=== PATIENT | male | born 1985 | race African-American/Black ===

== ENCOUNTER 2018-12-19 07:16 | Day surgery (SDC) | payer MEDICARE ==
[~2018-12-19] VITALS: Ht 188 cm; Wt 152.7 kg
--- NOTE | ~2018-12-19 | OP ---
PATIENT NAME: OLAMIDE SOTO MEDICAL RECORD: [id number] :87 LOCATION:[facility] ADMISSION DATE: SURGEON: MICHELLE ARZATE DO DATE OF OPERATION: 12/19/2018 PROCEDURE: Colonoscopy with polypectomy and biopsies. INDICATIONS FOR PROCEDURE: Altered bowel function, change in bowel habits, fecal incontinence, family history positive for colon cancer. SCOPE: Olympus video pediatric colonoscope. MEDICATIONS: Propofol 450 mg IV per anesthesia. WITHDRAWAL TIME: 8 minutes. ESTIMATED BLOOD LOSS: Minimal. COMPLICATIONS: None. FINDINGS: Informed consent was given. The patient was made comfortable with the above medication. After reaching an adequate level of sedation by slow IV push, the patient was placed on his left side. A digital rectal examination was performed. On the digital examination, a mass could be palpated in the rectum. It was anterior and on the left side in the 0-4 o'clock position. The endoscope was advanced under direct visualization through the rectum to the cecum, confirmed by the presence of the appendiceal orifice and ileocecal valve. The endoscope was slowly withdrawn. The mucosa was carefully examined. The prep quality was good in the majority of the colon, but there was still some solid stool located in the cecum and ascending colon, which limited some visualization. There was one polyp located in the transverse colon, which was benign-appearing and sessile. It measured approximately 4-mm in diameter. It was removed using a hot forceps. There were no other finding until we reached the rectum where the palpated rectal mass was present. It was approximately 5 cm into the rectum from the anal verge that measured approximately 6 x 3 cm in size. It occupied 60% of the circumference of the wall of the colon and was nonobstructing. Multiple cold forceps biopsies were taken from this mass. Retroflexion was performed and again revealed the visible rectal mass in relation to the anal verge. The endoscope was then withdrawn from the patient. The patient tolerated the procedure well and there were no complications. IMPRESSION: 1. Transverse polyp. 2. Rectal mass, multiple biopsies taken. PLAN AND RECOMMENDATIONS: 1. Discharge home when recovery parameters are met. 2. Follow up biopsy specimen results. 3. Referrals will be made to oncology and general surgery. 4. As this is likely the main cause of the patient's symptoms, I will not change any medications or other therapy at this time. 5. We will follow up after management of the colon mass and anticipate repeating a colonoscopy approximately 6 months after surgery. TRANSINT:[id number] Voice Confirmation ID: [id number] DOCUMENT ID: [id number] OPERATIVE REPORT [id number] OLAMIDE SOTO NATHAN A DO CC: [id number] DICTATION DATE: 12/19/18 1021 MARKETING TEACHER: 12/19/[address] [facility] [place] 12/19/18 [place] [id number] [place] [id number]
[2018-12-19 08:20] VITALS: BP 135/84; Ht 188 cm; Wt 152.7 kg
[2018-12-19 09:41] LABS: HEMATOCRIT 38.8 % (42.0-54.0); HEMOGLOBIN 12.6 g/dL (13.5-17.5); MCH 28.4 pg (26.0-34.0); MCHC 32.5 g/dL (31.0-37.0); MCV 87.4 fL (80.0-100.0); MEAN PLATELET VOLUME 10.5 fL (7.4-10.4); RBC 4.44 10x6/uL (4.20-6.10); RDW 14.1 % (11.5-14.5); WBC 7.3 10x3/uL (4.8-10.8)
--- NOTE | 2018-12-19 11:26 | NUR ---
AWAKE AND ALERT WITHOUT COMPLAINTS. TOLERATING FULL LIQUIDS. IV D/C'D WITH CANNULA INTACT. VSS. DISCHARGE INSTRUCTIONS GIVEN TO MOTHER. SHE VERBALIZED AN UNDERSTANDING.
== END 2018-12-19 11:25 | disposition home or self-care (01) ==
LOC: D.OPS 07:16
PROVIDERS: Anesthesiology; ATTEND Internal Medicine Gastroenterology
DX: K63.5 Polyp of colon (principal); C20 Malignant neoplasm of rectum; Z80.0 Family history of malignant neoplasm of digestive organs; Z01.812 Encounter for preprocedural laboratory examination

== ENCOUNTER 2018-12-28 06:53 | Day surgery (SDC) | payer MEDICARE ==
[~2018-12-28] VITALS: Ht 193 cm; Wt 151.8 kg
--- NOTE | ~2018-12-28 | OP ---
PATIENT NAME: OLAMIDE SOTO MEDICAL RECORD: [id number] :87 LOCATION:[facility] ADMISSION DATE: SURGEON: EDSON JO MD DATE OF OPERATION: 12/28/2018 PREOPERATIVE DIAGNOSES: 1. Rectal cancer. 2. Morbid obesity with a BMI of 41. 3. Hypertension. 4. Mental retardation with developmental delay. POSTOPERATIVE DIAGNOSES: 1. Rectal cancer. 2. Morbid obesity with a BMI of 41. 3. Hypertension. 4. Mental retardation with developmental delay. PROCEDURE: 1. Left subclavian vein port placement. 2. Digital rectal exam. SURGEON: Edson Jo MD REPORT OF PROCEDURE: The patient's left chest was prepped and draped in sterile fashion. A needle was used to cannulate the left internal jugular vein and a guidewire was advanced with ease. Fluoro was used to note that the wire was in good position in the venous system. A skin incision was then made on the left superior lateral chest and a subcutaneous pouch was made over the pectoral fascia. The catheter was tunneled between this pouch and the wire exit site. The port was sutured to the pectoral fascia using interrupted 2-0 Prolenes times 2. The catheter was cut with a beveled tip at 29 cm. The dilator trocar device was placed over the wire and the wire and dilator were removed. The catheter tip was advanced through the trocar and the trocar was then removed. The catheter tip was noted under fluoroscopy to be resting in good position at the right atrial superior vena caval junction. The catheter aspirated nonpulsatile dark blood and flushed easily with heparinized saline. The subcutaneous tissues were reapproximated with interrupted 3-0 Vicryl and the skin was then closed with subcutaneous running 5-0 Monocryl. A 10 mL of 0.25% Marcaine with epinephrine was infused into the surrounding tissues and a dressing was applied. The patient was then turned over on to his right side. A digital rectal exam was performed. I was able to measure out how far the tumor was from the anal verge and it appeared to be 3-4 cm. The mass was fixed and encompassing more than 50% of the wound and appeared to be ulcerated. COMPLICATIONS: None. CONDITION: Stable. ANESTHESIA: General endotracheal. BLOOD LOSS: Minimal. TRANSINT:[id number] Voice Confirmation ID: [id number] DOCUMENT ID: [id number] OPERATIVE REPORT [id number] OLAMIDE SOTO CHRISTIAN MD CC: RADHA DINH MD and MICHELLE ARZATE DO [id number] DICTATION DATE: 12/28/18 1107 KITCHEN LEAD: 12/28/18 1149 [facility] [address] [place] [address]
[2018-12-28 07:22] LABS: BASOPHILS 0.3 % (0-2); EOSINOPHILS 1.3 % (0-7); HEMATOCRIT 38.5 % (42.0-54.0); HEMOGLOBIN 12.3 g/dL (13.5-17.5); IMMATURE GRANULOCYTES 0.1 % (0-5); LYMPHOCYTES 26.1 % (15-50); MCH 28.2 pg (26.0-34.0); MCHC 31.9 g/dL (31.0-37.0); MCV 88.3 fL (80.0-100.0); MONOCYTES 10.3 % (2-11); NEUTROPHILS 61.9 % (40-80); PLATELET COUNT 278 10x3/uL (130-400); RBC 4.36 10x6/uL (4.20-6.10)
[2018-12-28 07:26] LABS: CALC OSMOLALITY 278 mosm/kg (275-300); CALCIUM 8.7 mg/dL (8.5-10.1); CARBON DIOXIDE 30.5 mmol/L (21.0-32.0); CHLORIDE - SERUM 104 mmol/L (98-107); CREATININE - SERUM 0.9 mg/dL (0.6-1.3); GLUCOSE 107 mg/dL (74-106); POTASSIUM - SERUM 3.5 mmol/L (3.5-5.1); SODIUM 141 mmol/L (136-145); UREA NITROGEN 7 mg/dL (7-18); eGFR NON AFRICAN AMERICAN > 90 mL/min (90-120)
[2018-12-28 07:58] LABS: INR 1.08 (0.85-1.17); PROTIME 13.5 SECONDS (11.6-15.0)
[2018-12-28 07:59] LABS: APTT 30.3 SECONDS (22.8-39.4)
[2018-12-28 08:10] VITALS: BP 121/73; Ht 193 cm; Wt 151.8 kg
[2018-12-28] MEDS ORDERED: HYDROCODON-ACE1 EA10 PO (11:01)
--- NOTE | 2018-12-28 11:23 | NUR ---
PT IS AUTISTIC PER ANESTHESIA
--- NOTE | 2018-12-28 15:40 | NUR ---
1300 PT IS GRIMACING AND MOTHER REQUESTS PAIN MED. RXD WITH HYDROCODONE.
== END 2018-12-28 13:30 | disposition home or self-care (01) ==
LOC: D.OPS 06:53 → D.PAN 09:15 → D.OPS 09:15
PROVIDERS: Anesthesiology; ATTEND Surgery
DX: C20 Malignant neoplasm of rectum (principal); E66.01 Morbid (severe) obesity due to excess calories; Z68.41 Body mass index [BMI] 40.0-44.9, adult; I10 Essential (primary) hypertension; F78 Other intellectual disabilities; Z01.812 Encounter for preprocedural laboratory examination

== ENCOUNTER 2019-03-30 18:42 | Emergency (ER) | payer MEDICARE, MEDICAID ==
[~2019-03-30] VITALS: Ht 193 cm; Wt 142.7 kg
[~2019-03-30 18:42] MED LIST: HYDROCODON-ACE1 EA10 PO
[2019-03-30 18:52] VITALS: Ht 193 cm; Wt 142.7 kg
[2019-03-30 19:34] LABS: BASOPHILS 0.1 % (0-2); EOSINOPHILS 0.6 % (0-7); HEMATOCRIT 33.5 % (42.0-54.0); IMMATURE GRANULOCYTES 0.3 % (0-5); LYMPHOCYTES 5.5 % (15-50); MCH 27.4 pg (26.0-34.0); MCHC 32.8 g/dL (31.0-37.0); MCV 83.5 fL (80.0-100.0); MEAN PLATELET VOLUME 9.2 fL (7.4-10.4); MONOCYTES 13.9 % (2-11); NEUTROPHILS 79.6 % (40-80); PLATELET COUNT 187 10x3/uL (130-400); RBC 4.01 10x6/uL (4.20-6.10); RDW 15.1 % (11.5-14.5); WBC 6.8 10x3/uL (4.8-10.8)
[2019-03-30 19:58] LABS: ALBUMIN 3.4 g/dL (3.4-5.0); ALKALINE PHOSPHATASE 84 U/L (46-116); ALT (SGPT) 28 U/L (10-68); BILIRUBIN - TOTAL 0.37 mg/dL (0.2-1.3); CALC OSMOLALITY 278 mosm/kg (275-300); CALCIUM 8.5 mg/dL (8.5-10.1); CARBON DIOXIDE 28.6 mmol/L (21.0-32.0); CHLORIDE - SERUM 104 mmol/L (98-107); CREATININE - SERUM 0.9 mg/dL (0.6-1.3); GLUCOSE 96 mg/dL (74-106); POTASSIUM - SERUM 3.1 mmol/L (3.5-5.1); PROTEIN - SERUM 7.3 g/dL (6.4-8.2); SODIUM 140 mmol/L (136-145); UREA NITROGEN 13 mg/dL (7-18); eGFR NON AFRICAN AMERICAN > 90 mL/min (90-120)
[2019-03-30] MEDS ORDERED: K-DUR20 MEQ PO (20:13)
[2019-03-30] MEDS ORDERED: LOMOTIL 2.5-0.1 EAC1 PO (20:13)
[2019-03-30] MEDS ORDERED: FLAGYL500 MG PO (20:13)
[2019-03-30 20:30] VITALS: BP 132/74
== END 2019-03-30 20:30 | disposition home or self-care (01) ==
LOC: D.ER 18:42
PROVIDERS: Emergency Medicine
DX: R19.7 Diarrhea, unspecified (principal); C20 Malignant neoplasm of rectum; E87.6 Hypokalemia

== ENCOUNTER → 2019-05-15 09:14 | Outpatient (CLI) | payer MEDICARE, MEDICAID ==
[2019-03-30 18:52] VITALS: BMI 38.3
[~2019-05-15 09:14] MED LIST changes: +FLAGYL500 MG PO; +K-DUR20 MEQ PO; +LOMOTIL 2.5-0.1 EAC1 PO; +MIRALAX17 GM PO; +PROTONIX40 MG PO
== END | disposition home or self-care (01) ==
LOC: D.CT 09:14
PROVIDERS: ATTEND Internal Medicine Hematology & Oncology
DX: C20 Malignant neoplasm of rectum (principal)

== ENCOUNTER 2019-06-17 09:37 | Inpatient (IN) | payer MEDICARE, MEDICAID ==
[~2019-06-17] VITALS: Ht 185.4 cm; Wt 144.3 kg
[~2019-06-17 09:37] MED LIST changes: -MIRALAX17 GM PO; -PROTONIX40 MG PO
[2019-06-18 05:36] LABS: BASOPHILS 0.2 % (0-2); EOSINOPHILS 1.2 % (0-7); HEMATOCRIT 33.9 % (42.0-54.0); HEMOGLOBIN 11.3 g/dL (13.5-17.5); LYMPHOCYTES 10.7 % (15-50); MCH 29.2 pg (26.0-34.0); MCHC 33.3 g/dL (31.0-37.0); MCV 87.6 fL (80.0-100.0); MONOCYTES 10.7 % (2-11); NEUTROPHILS 77.2 % (40-80); PLATELET COUNT 162 10x3/uL (130-400); RBC 3.87 10x6/uL (4.20-6.10); RDW 17.3 % (11.5-14.5); WBC 4.9 10x3/uL (4.8-10.8)
[2019-06-18 06:21] LABS: CALC OSMOLALITY 285 mosm/kg (275-300); CALCIUM 8.5 mg/dL (8.5-10.1); CARBON DIOXIDE 29.7 mmol/L (21.0-32.0); CHLORIDE - SERUM 108 mmol/L (98-107); CREATININE - SERUM 0.8 mg/dL (0.6-1.3); GLUCOSE 102 mg/dL (74-106); POTASSIUM - SERUM 3.3 mmol/L (3.5-5.1); SODIUM 144 mmol/L (136-145); UREA NITROGEN 9 mg/dL (7-18); eGFR NON AFRICAN AMERICAN > 90 mL/min (90-120)
[2019-06-18 06:39] LABS: APTT 30.4 SECONDS (22.8-39.4); PROTIME 12.7 SECONDS (11.6-15.0)
[2019-06-18 06:54] VITALS: BP 115/74; BMI 42.1
--- NOTE | 2019-06-18 10:51 | NUR ---
BOOKWALTER ON FIELD BUT NOT USED. ONE EXTRA INSTUMENT IN THE TRAY THEN ORIGINAL COUNT. POST OP X-RAY TAKEN AND REPORTED TO
--- NOTE | 2019-06-18 12:05 | NUR ---
POST OP KUB DONE WITH NO FOREIGN OBJECTS SEEN PER RADIOLOGY. REPORTED TO DR. DEYSI CASTELAN RN
--- NOTE | 2019-06-18 12:45 | NUR ---
EMPTIED A TOTAL OF 170CC OF BLOODY DRAINAGE FROM RLQ JANAK DRAIN. NEW DRSG APPLIED AND SECURED TO SKIN. WILL TRANSPORT PT TO NEW ROOM AT THIS TIME.
[2019-06-18 12:53] VITALS: BP 124/86
--- NOTE | 2019-06-18 13:00 | NUR ---
RECEIVED PT FROM RECOVERY. NEW COLOSTOMY. AVELAR. PT IS AUTISTIC. FAMILY AT BEDSIDE. JANAK DRAIN TO RLQ. MIDLINE INCISION WITH ADAN. SEWN ANUS WITH STITCHES.
--- NOTE | 2019-06-18 15:20 | NUR ---
PT GOT UP OUT OF BED, PULLED AVELAR OUT. THIS NURSE ASSISTED PT BACK TO BED. CLEANED PATIENT UP, BLOOD ON BED AND FLOOR. CALLED DR. JO, PHYSICIAN STATED TO PLACE ANOTHER AVELAR CATHETER IN. MONY MONTELONGO RN ASSISTED WITH AVELAR PLACEMENT.
--- NOTE | 2019-06-18 19:30 | NUR ---
PT LYING IN BED RESTING, NO SIGNS OF DISTRESS. DENIES ANY PAIN. IV RIGHT HAND INFUSING NS @ 125. DRESSING TO RECTUM AND ABD CDI. EMPTIED 110ML BLOOD DRAINAGE FROM JANAK DRAIN. ELVIS ON. FALL PRECAUTIONS IN PLACE. COLOSTOMY LLQ. OFFERED ICE CHIPS, REFUSED. STATES NO NEEDS. AVELAR IN PLACE WITH BRITT URINE. CL IN REACH, WILL CTM
[2019-06-18 19:44] VITALS: BMI 42.1
[2019-06-18 20:45] VITALS: BP 98/54
--- NOTE | 2019-06-18 21:00 | NUR ---
PT LYING IN BED RESTING, DENIES PAIN OR NEEDS. ELVIS ON. CL IN REACH, WILL CTM
--- NOTE | 2019-06-18 23:30 | NUR ---
PT LYING IN BED WITHOUT DISTRESS, DENIES PAIN OR NEEDS. DRESSING TO ABD CDI. DRAINED 75ML FROM JANAK DRAIN. ELVIS ON. CL IN REACH, WILL CTM
--- NOTE | 2019-06-18 23:45 | NUR ---
ELVIS ALARM SOUNDING, THIS NURSE ENTERED PT ROOM IMMEDIATELY. PT STANDING UP BETWEEN BATHROOM AND BED WITH AVELAR OUT AND IN FLOOR. PT OPENED BATHROOM DOOR. THIS NURSE TOLD PT TO SIT BACK DOWN WHILE TRYING TO MOVE AROUND BEDSIDE TABLE AND BATHROOM DOOR. PT PULLING AT IV LINE, MOVED IV POLE CLOSER TO PT. PT STANDING IN BATHROOM IN FRONT OF TOILET, THIS NURSE PLACED HANDS ON PT RIGHT ARM AND BACK FOR SUPPORT. PT BEGAN TO SWAY THIS NURSE WENT TO CALL OVER RADIO FOR HELP. PT FELL FORWARD HITTING HEAD ON BACK OF TOILET AND INTO THE FLOOR BETWEEN TOILET AND WALL TAKING THIS NURSE TO FLOOR WITH HIM. ASSISTED PT INTO SITTING UP ON KNEES. JUSTO OLIVA AND CYNDIE VÁSQUEZ ASSISTED THIS NURSE WALKING PT BACK TO BED. CYNDIE VÁSQUEZ GAVE PT BED BATH AND CHANGED GOWN. THIS NURSE PAGED DR LAW. DID NOT RECEIVE CALL BACK, CALLED [facility] CELL PHONE, STRAIGHT TO VOICEMAIL, UNABLE TO LEAVE ONE D/T BOX BEING FULL. PAGED AND CALLED DR LAW SECOND TIME. CALLED HOSPICE DIRECTOR WHO ADVISED TO CALL DR JO. SPOKE WITH DR JO AT 7530. DR JO STATES MONITOR PT AND HE WILL SEE HIM IN AM. CALLED PT MOTHER SLOANE SOTO AND NOTIFIED OF FALL. STATES SHE WILL BE UP IN AM TO SEE PT. CHECKED ON PT WHO STATES NO PAIN, NO PHYSICAL INJURIES SEEN, NO COMPLAINTS. FALL PRECAUTIONS IN PLACE. ELVIS ON. CL IN REACH, WILL CTM
[2019-06-19] VITALS (22 sets, daily range): BP systolic 108–163; BP diastolic 47–105; Ht 185.4 cm; Wt 144.3 kg
--- NOTE | 2019-06-19 03:37 | NUR ---
UPON ENTERING ROOM TO CHECK JANAK DRAIN, PT HAD PULLED DRAIN OUT AND PLACED IT ON BEDSIDE TABLE AND PULLED DRESSING OFF INCISION. PLACED NEW DRESSING OVER MIDLINE INCISION AND DRESSING OVER SITE WHERE JANAK DRAIN WAS PLACED
--- NOTE | 2019-06-19 03:52 | NUR ---
RECIEVED CALL BACK FROM DR LAW, UPDATED ON PT STATUS. DR LAW ORDERED TO TRANSFER PT OVER TO ICU TO BE MONITORED MORE CLOSELY. ELECTRICAL AND INSTRUMENTATION MECHANIC NOTIFIED
--- NOTE | 2019-06-19 04:35 | NUR ---
COMPUTER INFORMATION SYSTEMS INSTRUCTOR CALLED WITH ROOM 2307. CALLED PT MOTHER AND UPDATED HER ON PT STATUS AND INFORMED HER OF PT ROOM NUMBER. VERBALIZED UNDERSTANDING. CALLED REPORT TO JOSE OLIVA. VSS. TRANSFERED PT TO ROOM 230
--- NOTE | 2019-06-19 04:40 | NUR ---
REC'D TO ROOM 2307 VIA BED. PT TRANSFERRED SELF TO BED. ICU MONITORS ESTAB. PT COOPERATIVE. STUTTERS AND SLOW TO RESPOND, BUT ANSWERS APPROP/ORIENTED. REORIENTED TO TIME OF DAY AND ICU BY NURSE. VSS. NO SIGN OF DISTRESS. COLOSTOMY SITE INTACT PROTRUDING PINK STOMA NOTED. IV PATENT, DSG C/D/I. PT INSTRUCTED ON POC AND NOT PULLING AT LINES/TUBINGS. PT BED ALARM ON. CLOSE TO NURSE DESK. C/L IN REACH. ALARMS ON.
[2019-06-19 06:54] LABS: CALCIUM 8.3 mg/dL (8.5-10.1); CARBON DIOXIDE 27.2 mmol/L (21.0-32.0); CHLORIDE - SERUM 109 mmol/L (98-107); CREATININE - SERUM 0.9 mg/dL (0.6-1.3); GLUCOSE 124 mg/dL (74-106); SODIUM 143 mmol/L (136-145); eGFR NON AFRICAN AMERICAN > 90 mL/min (90-120)
[2019-06-19 06:55] LABS: CALC OSMOLALITY 285 mosm/kg (275-300); POTASSIUM - SERUM 3.9 mmol/L (3.5-5.1); UREA NITROGEN 13 mg/dL (7-18)
--- NOTE | 2019-06-19 07:00 | NUR ---
BEDSIDE REPORT RECIEVED. PT IN BED TALKING WITH NURSE. ASSESSMENT COMPLETED PER FLOWSHEET, SEE FLOWSHEET FOR ADDITIONAL INFORMATION. VSS. WILL CONT TO MONITOR.
[2019-06-19 08:03] LABS: BASOPHILS 0 % (0-2); EOSINOPHILS 0 % (0-7); IMMATURE GRANULOCYTES 0.1 % (0-5); LYMPHOCYTES 8.6 % (15-50); MCH 28.6 pg (26.0-34.0); MCHC 32.9 g/dL (31.0-37.0); MCV 87.1 fL (80.0-100.0); MEAN PLATELET VOLUME 9.5 fL (7.4-10.4); NEUTROPHILS 82.3 % (40-80); PLATELET COUNT 153 10x3/uL (130-400); RDW 17.6 % (11.5-14.5)
[2019-06-19 08:24] LABS: RBC 2.55 10x6/uL (4.20-6.10)
[2019-06-19 08:27] LABS: HEMATOCRIT 22.2 % (42.0-54.0)
[2019-06-19 08:30] LABS: HEMOGLOBIN 7.3 g/dL (13.5-17.5)
--- NOTE | 2019-06-19 09:00 | NUR ---
PT IN BED RESTING. VSS. NO NEEDS OR DISTRESS NOTED. WILL CONT TO MONITOR.
--- NOTE | 2019-06-19 10:18 | NUR ---
CHG BEDBATH GIVEN. ABDOMINAL DRESSING CHANGED. OSTOMY BAG CHANGED. PT TOLERATED WELL. FAMILY AT BEDSIDE. VSS. WILL CONT TO MONITOR.
--- NOTE | 2019-06-19 11:00 | NUR ---
CHG BEDBATH GIVEN. PARTIAL LINEN CHANGE COMPLETED. VSS. WILL CONT TO MONITOR.
[2019-06-19 14:34] LABS: HEMOGLOBIN 7.6 g/dL (13.5-17.5)
--- NOTE | 2019-06-19 17:00 | NUR ---
PT C/O DRY MOUTH AND LIPS. ORAL CARE GIVEN WITH LEMON SWABS AND LIP MOISTURIZER APPLIED. VSS. NO NEEDS OR DISTRESS NOTED AT THIS TIME. WILL CONT TO MONITOR.
--- NOTE | 2019-06-19 19:00 | NUR ---
PT REPORT RECEIVED FROM DAY SHIFT NURSE. NO SIGNS OF DISTRESS NOTED. SHIFT ASSESSMENT COMPLETED. WILL CONTINUE TO MONITOR
--- NOTE | 2019-06-19 19:37 | MORECARE ---
CASE MANAGEMENT DISCHARGE SUMMARY PATIENT: OLAMIDE SOTO UNIT: [id number] ADM DATE: 06/18/19 AGE: 33 : [birth year] SEX: M ROOM/BED: D.2307 AUTHOR: AGUSTIN PENA PHYSICIAN: REFERRING PHYSICIAN: LENNY JO MD DATE OF SERVICE: 06/19/19 Discharge Plan Patient Name: OLAMIDE SOTO [facility] [facility] 1985 Planned Disposition: Anticipated Discharge Date: Discharge Date: Expected LOS: Initial Reviewer: [email or web address] Initial Review Date: 06/18/2019 Generated: 06/19/19 8:37 pm Comments DCP- Discharge Planning Updated by [email or web address]: Libia Jackson on 06/19/19 6:[address] CM attempted to visit with patient he is unable to answer questions. No family available currently will try to reach via phone. CM will continue to follow and assist as needed with discharge planning / needs. Patient Name: OLAMIDE SOTO Page [id number] at 1937 All edits/amendments must be made on the electronic document DICTATION DATE: 06/19/191936 THERMODYNAMICS TEACHER: KEKE 06/19/191936 RPT#: [id number] DC DATE: STATUS: ADM IN [facility] [address] [place] [address] END OF REPORT
--- NOTE | 2019-06-19 21:00 | NUR ---
PT RESTING IN BED. VSS. NO COMPLAINTS NOTED AT THIS TIME. PT GIVEN LEMON SWABS FOR DRY MOUTH. OTHERWISE NO NEEDS. WILL CONTINUE TO MONITOR
--- NOTE | 2019-06-19 23:00 | NUR ---
PT REASSESSMENT COMPLETED. PT RESTING IN BED. VSS. WILL CONTINUE TO MONITOR
[2019-06-20] VITALS (25 sets, daily range): BP systolic 126–163; BP diastolic 74–101
--- NOTE | 2019-06-20 01:00 | NUR ---
PT RESTING IN BED. VSS. NO SIGNS OF DISTRESS NOTED. WILL CONTINUE TO MONITOR
--- NOTE | 2019-06-20 03:00 | NUR ---
PT REASSESSMENT COMPLETED. PT TOLERATED WELL. NO SIGNS OF DISTRESS NOTED. VSS. WILL CONTINUE TO MONITOR
[2019-06-20 04:38] LABS: BASOPHILS 0.2 % (0-2); EOSINOPHILS 0.2 % (0-7); IMMATURE GRANULOCYTES 0.2 % (0-5); LYMPHOCYTES 8.2 % (15-50); MCH 29.5 pg (26.0-34.0); MCHC 33.7 g/dL (31.0-37.0); MCV 87.5 fL (80.0-100.0); MEAN PLATELET VOLUME 9.5 fL (7.4-10.4); MONOCYTES 10.6 % (2-11); NEUTROPHILS 80.6 % (40-80); PLATELET COUNT 143 10x3/uL (130-400); RBC 2.24 10x6/uL (4.20-6.10); RDW 17.6 % (11.5-14.5); WBC 6.1 10x3/uL (4.8-10.8)
[2019-06-20 04:54] LABS: CALCIUM 7.8 mg/dL (8.5-10.1); CARBON DIOXIDE 26.4 mmol/L (21.0-32.0); CHLORIDE - SERUM 109 mmol/L (98-107); CREATININE - SERUM 0.7 mg/dL (0.6-1.3); GLUCOSE 98 mg/dL (74-106); SODIUM 144 mmol/L (136-145); eGFR NON AFRICAN AMERICAN > 90 mL/min (90-120)
--- NOTE | 2019-06-20 05:00 | NUR ---
PT RESTING IN BED. NO SIGNS OF DISTRESS NOTED. WILL CONTINUE TO MONITOR
[2019-06-20 05:06] LABS: CALC OSMOLALITY 285 mosm/kg (275-300); POTASSIUM - SERUM 3.3 mmol/L (3.5-5.1); UREA NITROGEN 9 mg/dL (7-18)
[2019-06-20 05:34] LABS: HEMATOCRIT 19.6 % (42.0-54.0); HEMOGLOBIN 6.6 g/dL (13.5-17.5)
--- NOTE | 2019-06-20 05:45 | NUR ---
DR JO CALLED REGARDING CRITICAL LAB VALUES. ORDERS RECEIVED. WILL CONTINUE TO MONITOR
--- NOTE | 2019-06-20 07:00 | NUR ---
BEDSIDE REPORT RECIEVED. ASSESSMENT COMPLETED PER FLOWSHEET, SEE FLOWSHEET FOR ADDITIONAL INFORMATION. VSS. NO NEEDS OR DISTRESS NOTED. WILL CONT TO MONITOR.
--- NOTE | 2019-06-20 09:00 | NUR ---
FAMILY AT BEDSIDE. PT C/O OF PAIN IN ABDOMEN, FOREST LOGISTICS MANAGER GIVEN. FOREST LOGISTICS MANAGER INSTRUCTIONS GIVEN TO PT AND FAMILY AT BEDSIDE. NO NEEDS OR DISTRESS NOTED AT THIS TIME. WILL CONT TO MONITOR.
--- NOTE | 2019-06-20 11:00 | NUR ---
PRBC INFUSING. VSS. WILL CONTINUE TO MONITOR.
--- NOTE | 2019-06-20 13:00 | NUR ---
2ND PRBC INFUSING, B/P 156/109. CALLED. NO NEW ORDERS. WILL CONT TO MONITOR.
--- NOTE | 2019-06-20 13:45 | NUR ---
B/P HAS LOWERED TO 136/95. WILL CONT TO MONITOR.
--- NOTE | 2019-06-20 15:00 | NUR ---
2ND PRBC COMPLETED AT THIS TIME. NO NEEDS OR DISTRESS NOTED AT THIS TIME. VSS. WILL CONT TO MONITOR.
--- NOTE | 2019-06-20 16:43 | NUR ---
3RD PRBC STARTED. VSS. WILL CONT TO MONITOR.
--- NOTE | 2019-06-20 17:00 | NUR ---
CHG BEDBATH GIVEN. COMPLETE LINEN CHANGE. PT TOLERATED WELL. VSS. NO NEEDS OR DISTRESS NOTED AT THIS TIME. WILL CONT TO MONITOR.
--- NOTE | 2019-06-20 19:00 | NUR ---
REPORT REC'D, ASSUMED PT'S CARE. ASSESSMENT COMPLETET PER FLOWSHEETS. PT A/O TO NAME, TIME AND PLACE. DENIES ANY DISCOMFORT AT THIS TIME. SR ON CM. LUNG SOUNDS CLEAR TO ULB WITH DIMINISHED TO LLB, UNLABORED. ABD INCISION WITH DRESSING C,D,I. COLOSTOMY BAG INTACT WITH SEROUSANGUINOUS DRAINGE. PPP. CALL LIGHT IN REACH. CONT TO MONITOR.
--- NOTE | 2019-06-20 20:30 | NUR ---
PT'S MOTHER CALLED, UPDATED AND QUESTIONS ANSWERED.
--- NOTE | 2019-06-20 21:00 | NUR ---
SCHEDULED MEDS GIVEN PER ORDER. PT SANTOS WELL. VSS.
--- NOTE | 2019-06-20 23:00 | NUR ---
REASSESSMENT COMPLETED PER FLOWSHEETS. NO ACUTE CHANGES IN PTS STATUS NOTED. VSS.CPOC.
[2019-06-21] VITALS (14 sets, daily range): BP systolic 121–150; BP diastolic 67–99
--- NOTE | 2019-06-21 01:00 | NUR ---
PT RESTING WITHOUT DISTRESS. VSS. NO NEEDS VOICES. CALL LIGHT IN REACH.
--- NOTE | 2019-06-21 03:00 | NUR ---
REASSESSMENT COMPLETED. SEE FLOWSHEETS FOR ALL FINDINGS. NO ACUTE CHANGES NOTED. VSS. CPOC
[2019-06-21 04:13] LABS: BASOPHILS 0.3 % (0-2); EOSINOPHILS 0.9 % (0-7); IMMATURE GRANULOCYTES 0.2 % (0-5); LYMPHOCYTES 6.8 % (15-50); MCH 29.9 pg (26.0-34.0); MCHC 33.3 g/dL (31.0-37.0); MEAN PLATELET VOLUME 9.5 fL (7.4-10.4); MONOCYTES 7.5 % (2-11); NEUTROPHILS 84.3 % (40-80); PLATELET COUNT 159 10x3/uL (130-400); RDW 16.1 % (11.5-14.5); WBC 6.6 10x3/uL (4.8-10.8)
[2019-06-21 04:26] LABS: CALC OSMOLALITY 281 mosm/kg (275-300); CALCIUM 8.1 mg/dL (8.5-10.1); CARBON DIOXIDE 24.7 mmol/L (21.0-32.0); CHLORIDE - SERUM 107 mmol/L (98-107); CREATININE - SERUM 0.6 mg/dL (0.6-1.3); GLUCOSE 96 mg/dL (74-106); POTASSIUM - SERUM 3.3 mmol/L (3.5-5.1); SODIUM 142 mmol/L (136-145); UREA NITROGEN 9 mg/dL (7-18); eGFR NON AFRICAN AMERICAN > 90 mL/min (90-120)
[2019-06-21 04:50] LABS: HEMATOCRIT 26.4 % (42.0-54.0); HEMOGLOBIN 8.8 g/dL (13.5-17.5); MCV 89.8 fL (80.0-100.0); RBC 2.94 10x6/uL (4.20-6.10)
--- NOTE | 2019-06-21 07:30 | NUR ---
REPORT RECEIVED. PT AWAKE, RESTING IN BED. PLEASANT. SHIFT ASSESSMENT COMPLETE DR JO HAS BEEN IN TO SEE PATIENT. PLAN TO SEND TO FLOOR.
--- NOTE | 2019-06-21 09:53 | NUR ---
NUTRITION F/U CHART REVIEWED. PT REMAINS NPO AWAITING RETURN OF BOWEL FUNCTION. WILL MONITOR PT PROGRESS AND PROVIDE DIET WHEN ORDERED. RD FOLLOWING
--- NOTE | 2019-06-21 11:37 | OP ---
PATIENT NAME: OLAMIDE SOTO MEDICAL RECORD: [id number] :87 LOCATION:D.[facility] D.2307 ADMISSION DATE:06/18/19 SURGEON: EDSON JO MD DATE OF OPERATION: 06/18/2019 PREOPERATIVE DIAGNOSES: 1. Rectal cancer. 2. Hypertension. 3. Developmental delay. POSTOPERATIVE DIAGNOSES: 1. Rectal cancer. 2. Hypertension. 3. Developmental delay. PROCEDURE: APR. SURGEON: Edson Jo MD REPORT OF PROCEDURE: The patient's abdomen was prepped and draped in sterile fashion. The perineal region was then prepped and draped and we irrigated out the patient's rectum with iodine. A skin incision was made in the lower midline and circling around the left side of the umbilicus. Electrocautery was used to dissect through the subcutaneous tissues and we entered the abdominal cavity. Once inside, we were able to find the rectosigmoid junction and inspection of the abdominal cavity showed no evidence of any metastatic disease. We could feel down in the pelvis and there were no sign of any masses or lesions present. The rectosigmoid junction was freed up using electrocautery and then we transected the junction using a 55-blue load MARY KAY stapler. We took down the mesentery using sequential clamp and tie technique and took down the superior hemorrhoidal vessels. Once we did this, we were able to mobilize on the posterior aspect of the patient's rectum coming just anterior to the patient's sacrum. We used electrocautery to dissect the tissues off of the sacrum. We eventually dissected the anterior aspect of the rectum off of the inferior aspect of the bladder, taking down the fascia. Once the fascia was penetrated, then we were able to do a blunt dissection over the anterior aspect of the rectum. The lateral stalk vessels were taken down using Harmonic scalpel. We could see the right and left ureters and these were protected throughout the procedure. As we continued our dissection down deep into the pelvis, I was able to feel the mass and we could get past the mass, but there was literally no room past the mass in order to transect the tissue and perform a reanastomosis. At this point, we elected to continue on with the APR. We approached the perineal region and made an elliptical incision around the patient's anus. Using electrocautery, we came through the subcutaneous tissues and muscle, taking a core of tissue around the rectum. We went as far posterior as the tip of the coccyx and was able to penetrate into the abdominal cavity and the pelvis. We then took down the lateral connections bilaterally using electrocautery and eventually came on the anterior aspect of the rectum and took down the tissue with care taken not to penetrate the patient's prostate. Once we had the tissue completely excised, then the rectum and anus were sent off for permanent. We inspected the area and any bleeding that was found was treated with electrocautery. The wound was irrigated out with normal saline. The deep subcutaneous tissues and muscle were reapproximated with interrupted 2-0 Vicryl. Subcutaneous tissues were reapproximated with interrupted 3-0 Vicryl and the perineal skin was closed with vertical mattress 2-0 Prolenes. We approached the OPERATIVE REPORT [id number] OLAMIDE SOTO patient's abdominal incision once again. We freed up the patient's left colon, taking down the white line of Toldt. We were able to mobilize the left colon and sigmoid more medially. An opening was made in the skin, on the left upper quadrant and using electrocautery came through the subcutaneous tissues. A cruciate opening was made on the anterior fascia. We the muscle fibers of the rectus muscles and then made a linear incision in the posterior fascia and penetrated the bowel through this opening. We then closed off the patient's pelvis by releasing the peritoneum on each side of the pelvis and suturing these 2 structures together and then suturing these to the superior aspect of the patient's bladder using running 3-0 Vicryls. A 19-Finnish Gokul drain had been inserted in the right lower quadrant and placed into the pelvis. This was sutured into place with a 2-0 nylon. We then irrigated out the abdomen with normal saline and assured there was no sign of any bleeding. The fascia was closed with running #1 loop PDS times 2. The subcutaneous tissues were reapproximated with running 3-0 Vicryl and the skin was closed with ren. We then matured the ostomy using a 4-0 Vicryls and this ostomy was matured in a Kiki fashion. We had to debulk some of the fatty appendix epiploica in order to facilitate this and at the conclusion of the case a new ostomy bag was applied. COMPLICATIONS: None. CONDITION: Stable. ANESTHESIA: General endotracheal. BLOOD LOSS: 250 mL. TRANSINT:[id number] Voice Confirmation ID: [id number] DOCUMENT ID: [id number] EDSON JO MD at 1137 CC: RADHA DINH MD, LEXX LEY MD, FLORINA SERVIN and CARITO,[id number] DICTATION DATE: 06/18/19 1154 PIPELINE OPERATOR: 06/18/19 1220 ADM IN [facility] [address] [place] [id number]
--- NOTE | 2019-06-21 13:19 | NUR ---
PT TRANSFERED VIA WHEELCHAIR TO 2230. FAMILY IS AT BEDSIDE.
--- NOTE | 2019-06-21 15:59 | MORECARE ---
CASE MANAGEMENT DISCHARGE SUMMARY PATIENT: OLAMIDE SOTO UNIT: [id number] ADM DATE: 06/18/19 AGE: 33 : 87 SEX: M ROOM/BED: D.2230 AUTHOR: AGUSTIN PENA PHYSICIAN: REFERRING PHYSICIAN: LENNY JO MD DATE OF SERVICE: 06/21/19 Discharge Plan Patient Name: OLAMIDE SOTO [facility] [facility] 1985 Planned Disposition: Home with Home Health Anticipated Discharge Date: Discharge Date: Expected LOS: Initial Reviewer: [email or web address] Initial Review Date: 06/21/2019 Generated: 06/21/19 4:59 pm Comments DCP- Discharge Planning Updated by [email or web address]: Libia Jackson on 06/19/19 6:[address] CM attempted to visit with patient he is unable to answer questions. No family available currently will try to reach via phone. CM will continue to follow and assist as needed with discharge planning / needs. Last DP export: 06/19/19 6:37 p Patient Name: OLAMIDE SOTO Page [id number] at 1559 All edits/amendments must be made on the electronic document DICTATION DATE: 06/21/191558 CUSTOMS COMPLIANCE SPECIALIST: KEKE 06/21/191558 RPT#: [id number] DC DATE: STATUS: ADM IN [facility] [address] [place] [address] END OF REPORT
--- NOTE | 2019-06-21 16:09 | MORECARE ---
CASE MANAGEMENT DISCHARGE SUMMARY [facility] UN[facility]: [id number] ADM DATE: 06/18/19 AGE: 33 : 87 SEX: M ROOM/BED: D.2230 AUTHOR: AGUSTIN PENA PHYSICIAN: REFERRING PHYSICIAN: LENNY JO MD DATE OF SERVICE: 06/21/19 Discharge Plan Patient Name: OLAMIDE SOTO Facility: [facility]:[place] : 1985 Planned Disposition: Home with Home Health Anticipated Discharge Date: Discharge Date: Expected LOS: Initial Reviewer: [email or web address] Initial Review Date: 06/21/2019 Generated: 06/21/19 5:09 pm Comments DCP- Discharge Planning Updated by [email or web address]: Libia Jackson on 06/19/19 6:[address] CM attempted to visit with patient he is unable to answer questions. No family available currently will try to reach via phone. CM will continue to follow and assist as needed with discharge planning / needs. DCPIA - Discharge Planning Initial Assessment Updated by [email or web address]: Libia Jackson on 06/21/19 4:01 pm * Is the patient Alert and Oriented? Yes * How many steps to enter\exit or inside your home? * PCP Dr. Rohan Russell * Pharmacy [facility] * Preadmission Environment Home with Family * ADLs Independent * List name and contact numbers for known caregivers / representatives who currently or will assist patient after discharge: SLOANE SOTO - [facility]- [phone] * Verbal permission to speak to the caregivers and representatives has been obtained from the patient. Yes * Community resources currently utilized None * Additional services required to return to the preadmission environment? No * Can the patient safely return to the preadmission environment? Yes * Has this patient been hospitalized within the prior 30 days at any hospital? No Last DP export: 06/21/19 2:59 p Patient Name: OLAMIDE SOTO Page [id number] at 1609 All edits/amendments must be made on the electronic document DICTATION DATE: 06/21/19 1609 SENIOR USER EXPERIENCE ARCHITECT: KEKE 06/21/19 1609 RPT#: [id number] DC DATE: STATUS: ADM IN [facility] [address] [place] [address] END OF REPORT
--- NOTE | 2019-06-21 16:17 | MORECARE ---
CASE MANAGEMENT DISCHARGE SUMMARY [facility] [id number] ADM DATE: 06/18/19 AGE: 33 : 87 SEX: M ROOM/BED: D.2230 AUTHOR: JEAN,DOC PHYSICIAN: REFERRING PHYSICIAN: LENNY JO MD DATE OF SERVICE: 06/21/19 Discharge Plan Patient Name: OLAMIDE FABIAN Facility: [facility]:[place] : 1985 Planned Disposition: Home with Home Health Anticipated Discharge Date: Discharge Date: Expected LOS: Initial Reviewer: [email or web address] Initial Review Date: 06/21/2019 Generated: 06/21/19 5:17 pm Comments DCP- Discharge Planning Updated by [email or web address]: Libia Jackson on 06/21/19 3:[address] Patient Name: OLAMIDE FABIAN Admission Status: Elective Accout number: [id number] Admission Date: 06-18-2019 : 1985 Admission Diagnosis:MALIGNANT NEOPLASM OF RECTUM Attending: LENNY JO Current LOS: 3 Anticipated DC Date: Planned Disposition: Home with Home Health Primary Insurance: [employer] ADV Discharge Planning Comments: CM met with patient's mother Kaylyn Fabian [phone] at bedside after explaining CM role and obtaining verbal consent. Patient lives at home with his mother where he is partially dependent with his care and plans to return there upon discharge. Family feels this would be a safe discharge. CM discussed availability / needs of home health and medical equipment. Patient has a new colostomy and will need home health and possibly DME company. JEREMY form and information regarding HH left with mother. Kaylyn states she is concerned about the patient being at home alone while she is getting dialysis treatments 3 times a week. He will have his family drive him home upon discharge. CM will continue to follow and assist as needed with discharge planning / needs. Clinic Lpn: Libia Jackson DCP- Discharge Planning Updated by [email or web address]: Libia Jackson on 06/19/19 6:[address] CM attempted to visit with patient he is unable to answer questions. No family available currently will try to reach via phone. CM will continue to follow and assist as needed with discharge planning / needs. DCPIA - Discharge Planning Initial Assessment Updated by [email or web address]: Libia Jackson on 06/21/19 4:01 pm * Is the patient Alert and Oriented? Yes * How many steps to enter\exit or inside your home? * PCP Dr. Rohan Russell * Pharmacy [facility] * Preadmission Environment Home with Family * ADLs Independent * List name and contact numbers for known caregivers / representatives who currently or will assist patient after discharge: KAYLYN FABIAN - [facility]- [phone] * Verbal permission to speak to the caregivers and representatives has been obtained from the patient. Yes * Community resources currently utilized None * Additional services required to return to the preadmission environment? No * Can the patient safely return to the preadmission environment? Yes * Has this patient been hospitalized within the prior 30 days at any hospital? No Last DP export: 06/21/19 3:09 p Patient Name: OLAMIDE FABIAN Page 10277 at 1617 All edits/amendments must be made on the electronic document DICTATION DATE: 06/21/191616 MUCK HAULER: KEKE 06/21/191616 RPT#: [id number] DC DATE: STATUS: ADM IN [facility] [address] [place] [address] END OF REPORT
--- NOTE | 2019-06-21 21:00 | NUR ---
A&0 X 4. SUPINE IN BED. DRESSING TO ABDOMEN INTACT. OSTOMY BAG TO LEFT SIDE OF ABDOMEN C/D/I. STOMA APPEARS MOIST AND PINK. NO OUTPUT NOTED IN BAG. PTs TEMP WAS 100.1F. DR FREY. BLANKETS REMOVED, ENCOURAGED COLD PO FLUIDS AND DEEP BREATHING. PT DENIES PAIN/NEEDS AT THIS TIME. WILL MONITOR TEMP.
--- NOTE | 2019-06-21 23:00 | NUR ---
TEMP 98.7F ORALLY. PT DENIES RECENTLY DRINKING COLD WATER. DENIES NEEDS AT THIS TIME, WILL CONTINUE TO MONITOR.
[2019-06-22] VITALS: BP 139/84
[2019-06-22 04:00] VITALS: BP 131/90
[2019-06-22 06:07] LABS: BASOPHILS 0.2 % (0-2); EOSINOPHILS 1.2 % (0-7); HEMATOCRIT 27.9 % (42.0-54.0); HEMOGLOBIN 9.1 g/dL (13.5-17.5); IMMATURE GRANULOCYTES 0.2 % (0-5); LYMPHOCYTES 7.6 % (15-50); MCH 29.4 pg (26.0-34.0); MCHC 32.6 g/dL (31.0-37.0); MEAN PLATELET VOLUME 9.3 fL (7.4-10.4); NEUTROPHILS 79.8 % (40-80); PLATELET COUNT 190 10x3/uL (130-400); RDW 15.9 % (11.5-14.5); WBC 5.2 10x3/uL (4.8-10.8)
[2019-06-22 06:29] LABS: CALC OSMOLALITY 278 mosm/kg (275-300); CALCIUM 8.7 mg/dL (8.5-10.1); CARBON DIOXIDE 25.9 mmol/L (21.0-32.0); CHLORIDE - SERUM 106 mmol/L (98-107); CREATININE - SERUM 0.6 mg/dL (0.6-1.3); GLUCOSE 113 mg/dL (74-106); POTASSIUM - SERUM 3.3 mmol/L (3.5-5.1); SODIUM 141 mmol/L (136-145); eGFR NON AFRICAN AMERICAN > 90 mL/min (90-120)
[2019-06-22 06:30] LABS: UREA NITROGEN 5 mg/dL (7-18)
[2019-06-22 09:47] VITALS: BP 125/75
--- NOTE | 2019-06-22 10:37 | NUR ---
REC'D PT LYING IN BED AOX4 RESP EVEN AND UNLABORED LUNG SOUNDS CLEAR AT THIS TIME. HEART RATE REGULAR NO EDEMA NOTED SI DRESSING CLEAN DRY AND INTACT AT THIS TIME. SRX2 BED AT LOWEST SETTING WITH BRAKES LOCKED. CALL LIGHT WITHIN REACH WILL CONTINUE TO MONITOR. PPPX4 IV TO LEFT FOREARM PATENT AND INTACT AT THIS TIME
[2019-06-22 13:39] VITALS: BP 106/70
[2019-06-22 17:00] VITALS: BP 116/62
--- NOTE | 2019-06-22 19:15 | NUR ---
RECEIVED CARE FROM DAY NURSE. LYING IN BED WATCHING TV. CALL LIGHT AT SIDE. NO IV AT THIS TIME.
[2019-06-22 20:45] VITALS: BP 126/79
--- NOTE | 2019-06-23 02:26 | NUR ---
I have reviewed this patient and I concur with the Shift Assessment completed by the Licensed Practical Nurse today this shift.
[2019-06-23 04:54] LABS: BASOPHILS 0 % (0-2); EOSINOPHILS 1.3 % (0-7); HEMATOCRIT 30.8 % (42.0-54.0); IMMATURE GRANULOCYTES 0.4 % (0-5); LYMPHOCYTES 9.1 % (15-50); MCH 29.2 pg (26.0-34.0); MCHC 32.5 g/dL (31.0-37.0); MCV 90.1 fL (80.0-100.0); MEAN PLATELET VOLUME 8.8 fL (7.4-10.4); MONOCYTES 11.5 % (2-11); NEUTROPHILS 77.7 % (40-80); PLATELET COUNT 186 10x3/uL (130-400); RBC 3.42 10x6/uL (4.20-6.10); RDW 15.7 % (11.5-14.5); WBC 4.6 10x3/uL (4.8-10.8)
[2019-06-23 05:05] LABS: CALC OSMOLALITY 282 mosm/kg (275-300); CALCIUM 8.7 mg/dL (8.5-10.1); CARBON DIOXIDE 28.9 mmol/L (21.0-32.0); CHLORIDE - SERUM 104 mmol/L (98-107); CREATININE - SERUM 0.7 mg/dL (0.6-1.3); GLUCOSE 133 mg/dL (74-106); POTASSIUM - SERUM 3.4 mmol/L (3.5-5.1); SODIUM 142 mmol/L (136-145); UREA NITROGEN 6 mg/dL (7-18); eGFR NON AFRICAN AMERICAN > 90 mL/min (90-120)
[2019-06-23 05:10] VITALS: BP 143/67
[2019-06-23 09:36] VITALS: BP 120/54
[2019-06-23 12:34] VITALS: BP 115/58
--- NOTE | 2019-06-23 13:30 | NUR ---
REC'D PT LYING IN BED RESP EVEN AND UNLABORED LUNG SOUNDS CLEAR. BED AT LOWEST SETTING WITH BRAKES ON. CALL LIGHT WITHIN REACH WILL CONTINUE TO MONITOR
[2019-06-23 16:47] VITALS: BP 100/46
--- NOTE | 2019-06-23 19:15 | NUR ---
RECEIVED CARE FROM DAY NURSE. LYING IN BED WATCHING TV. NO IV. OSTOMY BAG BURPED. CALL LIGHT AT SIDE. NO NEEDS VOICED AT THIS TIME.
[2019-06-23 20:56] VITALS: BP 109/56
--- NOTE | 2019-06-24 01:15 | NUR ---
BLEEDING AT SUPERIOR ARE OF RECTAL STICHES. AREA CLEANSED, 4X4 PLACED ON INNER BUTTOCKS WITH ABD PAD APPLIED AND TAPED IN PLACE. PER DAY SHIFT THIS HAPPENED DURING DAY SHIFT WELL.
[2019-06-24 01:48] VITALS: BP 127/63
[2019-06-24 05:24] VITALS: BP 119/69
--- NOTE | 2019-06-24 07:55 | NUR ---
AWAKE AND ALERT. RESPONDS APPROPRIATELY TO QUESTIONS. LUNGS ARE CLERA BILATERALLY, NO COUGH NOTED. SKIN IS INTACT WTIHOUT REDNESS EXCEPT INCISION TO ABDOMEN WHICH IS CLEAN AND DRY WITH CLIPS INTACT. OSTOMY PATENT WITH BROWNISH TINGED DISCHARGE, STOMA IS PINK AND VIABLE. NO IV AT THIS TIME. DENIES NEEDS.
[2019-06-24 07:59] VITALS: BP 123/64
[2019-06-24] MEDS ORDERED: HYDROCODON-ACE1 EA10 PO (08:06)
--- NOTE | 2019-06-24 10:15 | NUR ---
RESTING QUIETLY IN BED. DENIES NEEDS. ATE MOST OF BREAKFAST.
--- NOTE | 2019-06-24 11:00 | MORECARE ---
CASE MANAGEMENT DISCHARGE [facility] [id number] ADM DATE: 06/18/19 AGE: 33 : 87 SEX: M ROOM/BED: D.2230 AUTHOR: JEAN,DOC PHYSICIAN: REFERRING PHYSICIAN: LENNY JO MD DATE OF SERVICE: 06/24/19 Discharge Plan Patient Name: OLAMIDE FABIAN Facility: [facility]:[place] : 1985 Planned Disposition: Home with Home Health Anticipated Discharge Date: Discharge Date: Expected LOS: Initial Reviewer: [email or web address] Initial Review Date: 06/21/2019 Generated: 06/24/19 12:00 pm Comments DCP- Discharge Planning Updated by [email or web address]: Libia Jackson on 06/21/19 3:[address] Patient Name: OLAMIDE FABIAN Admission Status: Elective Accout number: [id number] Admission Date: 06-18-2019 : 1985 Admission Diagnosis:MALIGNANT NEOPLASM OF RECTUM Attending: LENNY JO Current LOS: 3 Anticipated DC Date: Planned Disposition: Home with Home Health Primary Insurance: [employer] MEDICARE ADV Discharge Planning Comments: CM met with patient's mother Kaylyn Fabian [phone] at bedside after explaining CM role and obtaining verbal consent. Patient lives at home with his mother where he is partially dependent with his care and plans to return there upon discharge. Family feels this would be a safe discharge. CM discussed availability / needs of home health and medical equipment. Patient has a new colostomy and will need home health and possibly DME company. JEREMY form and information regarding HH left with mother. Kaylyn states she is concerned about the patient being at home alone while she is getting dialysis treatments 3 times a week. He will have his family drive him home upon discharge. CM will continue to follow and assist as needed with discharge planning / needs. Surveillance Agent: Libia Jackson DCP- Discharge Planning Updated by [email or web address]: Libia Jackson on 06/19/19 6:[address] CM attempted to visit with patient he is unable to answer questions. No family available currently will try to reach via phone. CM will continue to follow and assist as needed with discharge planning / needs. DCPIA - Discharge Planning Initial Assessment Updated by [email or web address]: Libia Jackson on 06/21/19 4:01 pm * Is the patient Alert and Oriented? Yes * How many steps to enter\exit or inside your home? * PCP Dr. Rohan Russell * Pharmacy [facility] * Preadmission Environment Home with Family * ADLs Independent * List name and contact numbers for known caregivers / representatives who currently or will assist patient after discharge: KAYLYN FABIAN - MOTHER- [phone] * Verbal permission to speak to the caregivers and representatives has been obtained from the patient. Yes * Community resources currently utilized None * Additional services required to return to the preadmission environment? No * Can the patient safely return to the preadmission environment? Yes * Has this patient been hospitalized within the prior 30 days at any hospital? No External Providers [facility] Next Contact Date: Service Request Date: Service Type: Resolution: Reviewer: Comments: Last DP export: 06/21/19 3:18 p Patient Name: OLAMIDE FABIAN Page [phone] at 1100 All edits/amendments must be made on the electronic document DICTATION DATE: 06/24/19 1100 RN OCCUPATIONAL HEALTH: KEKE 06/24/19 1100 RPT#: [id number] DC DATE: STATUS: ADM IN [facility] [address] [place] [address] END OF REPORT
--- NOTE | 2019-06-24 11:40 | MORECARE ---
CASE MANAGEMENT DISCHARGE SUMMARY PATIENT: OLAMIDE FABIAN UNIT: [id number] ADM DATE: 06/18/19 AGE: 33 : 87 SEX: M ROOM/BED: D.2230 AUTHOR: JEANDOC PHYSICIAN: REFERRING PHYSICIAN: LENNY JO MD DATE OF SERVICE: 06/24/19 Discharge Plan Patient Name: OLAMIDE FABIAN Facility: [facility]:[place] : 1985 Planned Disposition: Home with Home Health Anticipated Discharge Date: Discharge Date: Expected LOS: Initial Reviewer: [id number] Initial Review Date: 06/21/2019 Generated: 06/24/19 12:39 pm Comments DCP- Discharge Planning Updated by [email or web address]: Svitlana Paige on 06/24/19 10:[address] Patient Name: OLAMIDE FABIAN Encounter No: [id number] : 1985 Primary Insurance: [employer] MEDICARE ADV Anticipated DC Date: Planned Disposition: Home with Home Health External Planned Provider: : DCP follow-up note: Patient and family in agreement with discharge plan. No changes to plan. Mother is here and IMM given and explained, signed, copy placed in MR. She also elects for [facility] and feels this is a safe discharge to go home with [facility]. States she is arranging someone to be with him tomorrow while she is in dialysis. Maya with wound care has been notified to teach on ostomy and also nurse to send extra supplies home. Case management will follow and assist as needed. Svitlana Paige DCP- Discharge Planning Updated by [id number]: Libia Jackson on 06/21/19 3:[address] Patient Name: OLAMIDE FABIAN Admission Status: Elective Accout number: [id number] Admission Date: 06-18-2019 : 1985 Admission Diagnosis:MALIGNANT NEOPLASM OF RECTUM Attending: LENNY JO Current LOS: 3 Anticipated DC Date: Planned Disposition: Home with Home Health Primary Insurance: [employer] MEDICARE ADV Discharge Planning Comments: CM met with patient's mother Kaylyn Fabian [phone] at bedside after explaining CM role and obtaining verbal consent. Patient lives at home with his mother where he is partially dependent with his care and plans to return there upon discharge. Family feels this would be a safe discharge. CM discussed availability / needs of home health and medical equipment. Patient has a new colostomy and will need home health and possibly DME company. JEREMY form and information regarding HH left with mother. Kaylyn states she is concerned about the patient being at home alone while she is getting dialysis treatments 3 times a week. He will have his family drive him home upon discharge. CM will continue to follow and assist as needed with discharge planning / needs. Computer Programmer: Libia Jackson DCP- Discharge Planning Updated by [email or web address]: Libia Jackson on 06/19/19 6:[address] CM attempted to visit with patient he is unable to answer questions. No family available currently will try to reach via phone. CM will continue to follow and assist as needed with discharge planning / needs. DCPIA - Discharge Planning Initial Assessment Updated by [id number]: Libia Jackson on 06/21/19 4:01 pm * Is the patient Alert and Oriented? Yes * How many steps to enter\exit or inside your home? * PCP Dr. Rohan Russell * Pharmacy [facility] * Preadmission Environment Home with Family * ADLs Independent * List name and contact numbers for known caregivers / representatives who currently or will assist patient after discharge: KAYLYN FABIAN - - [phone] * Verbal permission to speak to the caregivers and representatives has been obtained from the patient. Yes * Community resources currently utilized None * Additional services required to return to the preadmission environment? No * Can the patient safely return to the preadmission environment? Yes * Has this patient been hospitalized within the prior 30 days at any hospital? No Coverage Notice Reviewer: [email or web address] Paige Notice Issued Date-Time: 06/24/2019 11:33 Notice Type: IM Discharge Notice Notice Delivered To: Family Member Relationship to Patient: Mother Zipper Measurer Name: Kaylyn Fabian Delivery Method: HAND - Hand Delivered Sharla Days: Prior Verbal Notification: Recipient Understood Notice: Yes Recipient Signature: Yes Med Rec Note Co-signed by Attending: Coverage Notice Comment: IMM explained, signed, given, copy placed in MR Reviewer: [email or web address] Deidra Paige Notice Issued Date-Time: 06/24/2019 11:33 Notice Type: Patient Choice Letter Notice Delivered To: Family Member Relationship to Patient: Mother Zipper Measurer Name: Kaylyn Fabian Delivery Method: HAND - Hand Delivered Sharla Days: Prior Verbal Notification: Recipient Understood Notice: Yes Recipient Signature: Yes Med Rec Note Co-signed by Attending: Coverage Notice Comment: JEREMY for [facility] Last DP export: 06/24/19 10:00 a Patient Name: OLAMIDE FABIAN Page [phone] at 1140 All edits/amendments must be made on the electronic document DICTATION DATE: 06/24/19 113 BODY PRESSER: KEKE 06/24/19 1139 RPT#: [id number] DC DATE: STATUS: ADM IN [facility] [address] [place] [address] END OF REPORT
--- NOTE | 2019-06-24 12:43 | NUR ---
ALL TEACHINGS COMPLETED PER STAFF. MOM STATED UNDERSTANDING OF SAME. SUPPLIES SENT WITH PATIENT FOR OSTOMY CARE. DISCHARGE INSTRUCTIONS GIVEN BOTH VERBALLY AND WRITTEN. ALL QUESTIONS ANSWERED. PATIENT AND MOTHER VERBALIZED UNDERSTANDING OF SAME. NEEDED PRESCRIPTIONS GIVEN TO PATIENT. EATING LUNCH PRIOR TO DISCHARGE.
--- NOTE | 2019-06-24 12:47 | NUR ---
Ostomy teaching provided for Mrs. Fabian (pt's mother). Information booklet provided "Understanding your Ostomy" along with ostomy suppliers and local ostomy support group information. Demonstrated how to change appliance, clean the skin, apply skin protectant, measure and apply wafer, attach bag and burp the bag. Mrs. Fabian's questions were answered. After d/c HH will continue teaching. Stoma measured 2-09/28".
--- NOTE | 2019-06-24 13:20 | NUR ---
DISCHARGED TO HOME AMBULATORY WITH FAMILY. ALL BELONGINGS WITH PATIENT.
--- NOTE | 2019-06-25 16:44 | MORECARE ---
CASE MANAGEMENT DISCHARGE SUMMARY PATIENT: OLAMIDE FABIANAL UNIT: [id number] ADM DATE: 06/18/19 AGE: 33 : 87 SEX: M ROOM/BED: D.2230 AUTHOR: JEANDOC PHYSICIAN: REFERRING PHYSICIAN: LENNY JO MD DATE OF SERVICE: 06/25/19 Discharge Plan Patient Name: OLAMIDE FABIAN Facility: [facility]:[place] : 1985 Planned Disposition: Home with Home Health Anticipated Discharge Date: Discharge Date: 06/24/2019 Expected LOS: Initial Reviewer: [id number] Initial Review Date: 06/21/2019 Generated: 06/25/19 5:44 pm Comments DCP- Discharge Planning Updated by [id number]: Svitlana Paige on 06/24/19 10:[address] Patient Name: OLAMIDE FABIAN Encounter No: [id number] : 1985 Primary Insurance: [employer] MEDICARE ADV Anticipated DC Date: Planned Disposition: Home with Home Health External Planned Provider: : DCP follow-up note: Patient and family in agreement with discharge plan. No changes to plan. Mother is here and IMM given and explained, signed, copy placed in MR. She also elects for [facility] and feels this is a safe discharge to go home with [facility]. States she is arranging someone to be with him tomorrow while she is in dialysis. Maya with wound care has been notified to teach on ostomy and also nurse to send extra supplies home. Case management will follow and assist as needed. Svitlana Paige DCP- Discharge Planning Updated by [email or web address]: Libia Jackson on 06/21/19 3:[address] Patient Name: OLAMIDE FABIAN Admission Status: Elective Accout number: [id number] Admission Date: 06-18-2019 : 1985 Admission Diagnosis:MALIGNANT NEOPLASM OF RECTUM Attending: LENNY JO Current LOS: 3 Anticipated DC Date: Planned Disposition: Home with Home Health Primary Insurance: [employer] MEDICARE ADV Discharge Planning Comments: CM met with patient's mother Kaylyn Fabian [phone] at bedside after explaining CM role and obtaining verbal consent. Patient lives at home with his mother where he is partially dependent with his care and plans to return there upon discharge. Family feels this would be a safe discharge. CM discussed availability / needs of home health and medical equipment. Patient has a new colostomy and will need home health and possibly DME company. JEREMY form and information regarding HH left with mother. Kaylyn states she is concerned about the patient being at home alone while she is getting dialysis treatments 3 times a week. He will have his family drive him home upon discharge. CM will continue to follow and assist as needed with discharge planning / needs. Etl Data Architect: Libia Jackson DCP- Discharge Planning Updated by [email or web address]: Libia Jackson on 06/19/19 6:[address] CM attempted to visit with patient he is unable to answer questions. No family available currently will try to reach via phone. CM will continue to follow and assist as needed with discharge planning / needs. DCPIA - Discharge Planning Initial Assessment Updated by [email or web address]: Libia Jackson on 06/21/19 4:01 pm * Is the patient Alert and Oriented? Yes * How many steps to enter\exit or inside your home? * PCP Dr. Rohan Russell * Pharmacy [facility] * Preadmission Environment Home with Family * ADLs Independent * List name and contact numbers for known caregivers / representatives who currently or will assist patient after discharge: KAYLYN FABIAN - - [phone] * Verbal permission to speak to the caregivers and representatives has been obtained from the patient. Yes * Community resources currently utilized None * Additional services required to return to the preadmission environment? No * Can the patient safely return to the preadmission environment? Yes * Has this patient been hospitalized within the prior 30 days at any hospital? No Coverage Notice Reviewer: [id number] Paige Notice Issued Date-Time: 06/24/2019 11:33 Notice Type: IM Discharge Notice Notice Delivered To: Family Member Relationship to Patient: Mother Coating Machine Feeder Name: Kaylyn Fabian Delivery Method: HAND - Hand Delivered Sharla Days: Prior Verbal Notification: Recipient Understood Notice: Yes Recipient Signature: Yes Med Rec Note Co-signed by Attending: Coverage Notice Comment: IMM explained, signed, given, copy placed in MR Reviewer: [email or web address] Deidra Paige Notice Issued Date-Time: 06/24/2019 11:33 Notice Type: Patient Choice Letter Notice Delivered To: Family Member Relationship to Patient: Mother Coating Machine Feeder Name: Kaylyn Fabian Delivery Method: HAND - Hand Delivered Sharla Days: Prior Verbal Notification: Recipient Understood Notice: Yes Recipient Signature: Yes Med Rec Note Co-signed by Attending: Coverage Notice Comment: JEREMY for [facility] Last DP export: 06/24/19 10:40 a Patient Name: OLAMIDE FABIAN Page 73928 at 1644 All edits/amendments must be made on the electronic document DICTATION DATE: 06/25/191643 WINE SALES REPRESENTATIVE: KEKE 06/25/191643 RPT#: [id number] DC DATE:06/24/19 STATUS: DIS IN [facility] [address] [place] [address] END OF REPORT
--- NOTE | 2019-06-28 08:22 | DS ---
PATIENT:OLAMIDE SOTO :87 MEDICAL RECORD: [id number] DISCHARGE SUMMARY ADMISSION DATE: 06/18/19 DISCHARGE DATE: 06/24/19 ADMISSION DIAGNOSES: 1. Rectal cancer. 2. Autism. DISCHARGE DIAGNOSES: 1. Rectal cancer. 2. Autism. PROCEDURE: APR on 06/18/2019. CONSULTATIONS: None. REPORT OF HOSPITALIZATION: The patient was admitted to the hospital after successful APR for a low rectal cancer. The evening of surgery, the patient pulled out his Ryan catheter twice and his pelvic drain and due to his confusion and combativeness, he was transferred to the intensive care unit. After that one evening, the patient was great with no other complications. He began to have return of bowel function through the ostomy and was started on clear liquid diet, which he tolerated and was able to be advanced up to regular diet by the day of discharge. He had no fevers. He was ambulating appropriately. His incisions were healing well. His ostomy was swollen, but he was putting out air and thin liquidy output. On the day of discharge, the patient had no acute issues and was felt to be stable for discharge home after ostomy training. DISCHARGE INSTRUCTIONS: He will return to clinic or call with any questions, concerns, fevers, chills, nausea, vomiting or worsening abdominal pain. ACTIVITIES: No heavy lifting or straining for 6 weeks postoperatively. FOLLOWUP: In clinic with me in 1 week. DISCHARGE MEDICATIONS: [place] 10 mg one every 6 hours p.r.n. for pain. TRANSINT:[id number] Voice Confirmation ID: [id number] DOCUMENT ID: [id number] LENNY JO MD at 0822 CC: FLORINA SERVIN [id number] DICTATION DATE: 06/24/19 08 TANNING WHEEL OPERATOR: 06/25/19 0420 DIS IN 06/24/19 [facility] [address] [place] [id number]
== END 2019-06-24 13:21 | disposition home health service (06) | DRG 330 ==
LOC: D.SDCHOLD 06-18 05:19 → D.ICU 06-18 05:19 → D.MS 06-18 05:19 → D.SDCHOLD 06-18 07:15 → D.EDHOLD 06-18 07:15 → D.MS 06-18 12:06 → D.ICU 06-19 04:39 → D.MS 06-21 13:20
PROVIDERS: Anesthesiology; ADMIT Surgery; ATTEND Surgery
PROC: 0DTP0ZZ Resection of Rectum, Open Approach (ICD-10-PCS; 2019-06-18)
PROC: 0DTQ0ZZ Resection of Anus, Open Approach (ICD-10-PCS; 2019-06-18)
PROC: 0DTN0ZZ Resection of Sigmoid Colon, Open Approach (ICD-10-PCS; principal; 2019-06-18 07:15)
DX: C20 Malignant neoplasm of rectum (principal); D62 Acute posthemorrhagic anemia; F84.0 Autistic disorder; I10 Essential (primary) hypertension; R62.50 Unspecified lack of expected normal physiological development in childhood; E87.6 Hypokalemia

== ENCOUNTER 2019-06-27 00:53 | Observation (INO) | payer MEDICARE, MEDICAID ==
[~2019-06-27] VITALS: Ht 185.4 cm; Wt 119.5 kg
[2019-06-27 01:59] LABS: BASOPHILS 0.1 % (0-2); EOSINOPHILS 0.3 % (0-7); HEMATOCRIT 30.2 % (42.0-54.0); IMMATURE GRANULOCYTES 0.2 % (0-5); LYMPHOCYTES 11.7 % (15-50); MCH 29.4 pg (26.0-34.0); MCHC 33.1 g/dL (31.0-37.0); MCV 88.8 fL (80.0-100.0); MEAN PLATELET VOLUME 9.1 fL (7.4-10.4); MONOCYTES 9.3 % (2-11); NEUTROPHILS 78.4 % (40-80); WBC 10.1 10x3/uL (4.8-10.8)
[2019-06-27 02:04] LABS: PLATELET COUNT 308 10x3/uL (130-400)
[2019-06-27 02:09] LABS: INR 1.16 (0.85-1.17); PROTIME 14.3 SECONDS (11.6-15.0)
[2019-06-27 02:14] LABS: ALBUMIN 3.2 g/dL (3.4-5.0); ALKALINE PHOSPHATASE 70 U/L (46-116); ALT (SGPT) 17 U/L (10-68); BILIRUBIN - TOTAL 0.71 mg/dL (0.2-1.3); CALC OSMOLALITY 275 mosm/kg (275-300); CALCIUM 8.4 mg/dL (8.5-10.1); CARBON DIOXIDE 30.8 mmol/L (21.0-32.0); CHLORIDE - SERUM 100 mmol/L (98-107); GLUCOSE 122 mg/dL (74-106); POTASSIUM - SERUM 3.4 mmol/L (3.5-5.1); PROTEIN - SERUM 8.1 g/dL (6.4-8.2); SODIUM 137 mmol/L (136-145); UREA NITROGEN 14 mg/dL (7-18); eGFR NON AFRICAN AMERICAN > 90 mL/min (90-120)
--- NOTE | 2019-06-27 02:30 | NUR ---
PT GIVEN URINAL, UNABLE TO URINATE AT THIS TIME
[2019-06-27 02:57] LABS: APPEARANCE HAZY (CLEAR); BILIRUBIN NEGATIVE (NEGATIVE); COLOR YELLOW (YELLOW); GLUCOSE NEGATIVE (NEGATIVE); KETONE NEGATIVE (NEGATIVE); NITRITE NEGATIVE (NEGATIVE); PROTEIN TRACE mg/dL (NEGATIVE); UROBILINOGEN NORMAL (NORMAL)
[2019-06-27 02:59] LABS: BACTERIA FEW /hpf (NEGATIVE); EPITHELIAL CELLS 0-5 /hpf (0-5); WHITE CELLS - URINE 0-5 /hpf (NEGATIVE)
--- NOTE | 2019-06-27 03:35 | NUR ---
PT TO RADIOLOGY.
--- NOTE | 2019-06-27 03:48 | NUR ---
PT RETURNED FROM RADIOLOGY.
--- NOTE | 2019-06-27 06:30 | NUR ---
RECIEVED TO FLOOR, ACCOMPANIED BY STAFF AND FAMILY. A&O X 4. AMBULATES INDEPENDENTLY. REPORTS PAIN IS DECREASING. TELEMETRY APPLIED. WILL CONTINUE TO MONITOR.
--- NOTE | 2019-06-27 07:35 | NUR ---
BEDSIDE REPORT RECIEVED. PATIENT IV CLOTTED. REMOVED WITH CATH TIP INTACT. COLOSTOMY INTACT WITH DUCT TAPE ON IT. WILL CHANGE COLOSTOMY BAG OUT. PATIENT HAS NO COMPLAINTS AT THIS TIME. CALL LIGHT WITHIN REACH.
[2019-06-27 08:59] VITALS: BP 120/69
--- NOTE | 2019-06-27 09:46 | NUR ---
DR. JO IN TO SEE PATIENT. STATED TO LEAVE IV OUT AND LET PATIENT EAT. STATED THAT PATIENT DIDNT NEED ANYTHING DONE SURGICALLY AT THIS TIME, AND IT WAS OK FOR HIM TO DISCHARGE. DR. JO CHANGED PATIENTS COLOSTOMY BAG AND CHECKED ROMI POUCH, STATED TO PLACED NEW DRESSING. ABD AND GAUZE.
--- NOTE | 2019-06-27 10:00 | NUR ---
PATIENT CLEANED UP AND 4X4 AND ABD PAD PLACED TO RECTAL AREA. PATIENT HAD RED DRAINAGE FROM SURGICAL SITE. PATIENT TOLERATED WITH SMALL AMOUNT OF PAIN. ASSISTED BACK INTO BED AND CALL LIGHT WITHIN REACH.
[2019-06-27 12:38] VITALS: BP 130/77
[2019-06-27] MEDS ORDERED: PROTONIX40 MG PO (15:04)
[2019-06-27] MEDS ORDERED: MIRALAX17 GM PO (15:05)
--- NOTE | 2019-06-27 15:48 | MORECARE ---
CASE MANAGEMENT DISCHARGE SUMMARY PATIENT: OLAMIDE FABIAN UNIT: [id number] ADM DATE: 06/27/19 AGE: 33 : 87 SEX: M ROOM/BED: D.2216 AUTHOR: AGUSTIN PENA PHYSICIAN: REFERRING PHYSICIAN: WILLIAM CAPELLAN MD DATE OF SERVICE: 06/27/19 Discharge Plan Patient Name: OLAMIDE FABIAN [facility] : 1985 Planned Disposition: Home Hlth Svc w Plan Readm Anticipated Discharge Date: 06/27/19 Discharge Date: Expected LOS: 1 Initial Reviewer: [email or web address] Initial Review Date: 06/27/2019 Generated: 06/27/19 4:48 pm DCPIA - Discharge Planning Initial Assessment Updated by [email or web address]: Svitlana Paige on 06/27/19 3:47 pm * Is the patient Alert and Oriented? Yes * PCP Dr. Russell * Pharmacy [facility] * Preadmission Environment Home with Family * ADLs Independent * List name and contact numbers for known caregivers / representatives who currently or will assist patient after discharge: Kaylyn Fabian - mother - [phone] * Verbal permission to speak to the caregivers and representatives has been obtained from the patient. Yes * Community resources currently utilized Home Health * Please name any agencies selected above. [facility] * Additional services required to return to the preadmission environment? No * Can the patient safely return to the preadmission environment? Yes * Has this patient been hospitalized within the prior 30 days at any hospital? Yes Patient Name: OLAMIDE FABIAN Page 84884 at 1548 All edits/amendments must be made on the electronic document DICTATION DATE: 06/27/191547 TUBE REBUILDER: KEKE 06/27/191547 RPT#: [id number] DC DATE: STATUS: ADM IN [facility] [address] [place] [address] END OF REPORT
--- NOTE | 2019-06-27 15:56 | MORECARE ---
CASE MANAGEMENT DISCHARGE SUMMARY PATIENT: OLAMIDE FABIAN UNIT: [id number] ADM DATE: 06/27/19 AGE: 33 : 87 SEX: M ROOM/BED: D.2216 AUTHOR: JEAN,DOC PHYSICIAN: REFERRING PHYSICIAN: WILLIAM CAPELLAN MD DATE OF SERVICE: 06/27/19 Discharge Plan Patient Name: OLAMIDE FABIAN Facility: [facility]:[place] : 1985 Planned Disposition: Home Hlth Svc w Plan Readm Anticipated Discharge Date: 06/27/19 Discharge Date: Expected LOS: 1 Initial Reviewer: [email or web address] Initial Review Date: 06/27/2019 Generated: 06/27/19 4:56 pm Comments DCP- Discharge Planning Updated by [email or web address]: Svitlana Paige on 06/27/19 2:[address] Patient Name: OLAMIDE FABINA Admission Status: ER Accout number: [id number] Admission Date: 06-27-2019 : 1985 Admission Diagnosis: Attending: WILLIAM CAPELLAN Current LOS: 1 Anticipated DC Date: 06-27-2019 Planned Disposition: Home Hlth Svc w Plan Readm Primary Insurance: [employer] MEDICARE ADV Discharge Planning Comments: CM met with patient, he is alone in the room. He was just released from [facility] on June 24 with [facility]. He would like to resume [facility]. Brandy Mercedes RN called and informed Ray with [facility] that he was discharging home today for resumption of services. Clinical faxed to [facility]. CM will continue to follow and assist with discharge planning/needs. Amplifier Mechanic: Svitlana Paige DCPIA - Discharge Planning Initial Assessment Updated by [email or web address]: Svitlana Paige on 06/27/19 3:47 pm * Is the patient Alert and Oriented? Yes * PCP Dr. Russell * Pharmacy [facility] * Preadmission Environment Home with Family * ADLs Independent * List name and contact numbers for known caregivers / representatives who currently or will assist patient after discharge: Kaylyn Fabian - mother - [phone] * Verbal permission to speak to the caregivers and representatives has been obtained from the patient. Yes * Community resources currently utilized Home Health * Please name any agencies selected above. [facility] * Additional services required to return to the preadmission environment? No * Can the patient safely return to the preadmission environment? Yes * Has this patient been hospitalized within the prior 30 days at any hospital? Yes External Providers External Provider: [facility] Next Contact Date: Service Request Date: Service Type: Resolution: Reviewer: Comments: Last DP export: 06/27/19 2:48 p Patient Name: OLAMIDE FABIAN Page [id number] at 1556 All edits/amendments must be made on the electronic document DICTATION DATE: 06/27/191555 PATTERN CLERK: KEKE 06/27/191555 RPT#: [id number] DC DATE: STATUS: ADM IN [facility] [address] [place] [address] END OF REPORT
[2019-06-27 16:26] VITALS: BP 135/82; Ht 185.4 cm; Wt 119.5 kg
[2019-06-27 16:38] VITALS: BP 128/77
--- NOTE | 2019-06-27 18:51 | NUR ---
PATIENT SITTING UP IN BED WAITING FOR FAMILY FOR TRANSPORTATION HOME. DRESSING CHANGED AGAIN. PATIENT HAS NO COMPLAINTS AT THIS TIME. CALL LIGHT WITHIN REACH.
--- NOTE | 2019-07-01 10:20 | MORECARE ---
CASE MANAGEMENT DISCHARGE SUMMARY PATIENT: OLAMIDE FABIAN UNIT: [id number] ADM DATE: 06/27/19 AGE: 33 : [birth year] SEX: M ROOM/BED: D.2216 AUTHOR: JEANDOC PHYSICIAN: REFERRING PHYSICIAN: WILLIAM CAPELLAN MD DATE OF SERVICE: 07/01/19 Discharge Plan Patient Name: OLAMIDE FABIAN Facility: [facility]:[place] : 1985 Planned Disposition: Home Hlth Svc w Plan Readm Anticipated Discharge Date: 06/27/19 Discharge Date: 06/27/2019 Expected LOS: 1 Initial Reviewer: [email or web address] Initial Review Date: 06/27/2019 Generated: 07/01/19 11:20 am Comments DCP- Discharge Planning Updated by [email or web address]: Svitlana Paige on 06/27/19 2:[address] Patient Name: OLAMIDE FABIAN Admission Status: ER Accout number: [id number] Admission Date: 06-27-2019 : 1985 Admission Diagnosis: Attending: WILLIAM CAPELLAN Current LOS: 1 Anticipated DC Date: 06-27-2019 Planned Disposition: Home Hlth Svc w Plan Readm Primary Insurance: [employer] MEDICARE ADV Discharge Planning Comments: CM met with patient, he is alone in the room. He was just released from [facility] on June 24 with [facility]. He would like to resume [facility]. Brandy Mercedes RN called and informed Ray with [facility] that he was discharging home today for resumption of services. Clinical faxed to [facility]. CM will continue to follow and assist with discharge planning/needs. Microbiology Lab Analyst: Svitlana Paige DCPIA - Discharge Planning Initial Assessment Updated by [email or web address]: Svitlana Paige on 06/27/19 3:47 pm * Is the patient Alert and Oriented? Yes * PCP Dr. Russell * Pharmacy [facility] * Preadmission Environment Home with Family * ADLs Independent * List name and contact numbers for known caregivers / representatives who currently or will assist patient after discharge: Kaylyn Fabian - mother - [phone] * Verbal permission to speak to the caregivers and representatives has been obtained from the patient. Yes * Community resources currently utilized Home Health * Please name any agencies selected above. [facility] * Additional services required to return to the preadmission environment? No * Can the patient safely return to the preadmission environment? Yes * Has this patient been hospitalized within the prior 30 days at any hospital? Yes Last DP export: 06/27/19 2:56 p Patient Name: OLAMIDE FABIAN Page [id number] at 1020 All edits/amendments must be made on the electronic document DICTATION DATE: 07/01/19 1020 HEAVY FORGING MACHINE OPERATOR: KEKE 07/01/19 1020 RPT#: [id number] DC DATE:06/27/19 STATUS: DIS IN [facility] [address] [place] [address] END OF REPORT
== END 2019-06-27 20:00 | disposition home or self-care (01) ==
LOC: D.ER 00:53 → D.MS 05:32 → OBSVTIME 05:32 → D.MS 05:32 → D.ER 05:32 → D.MS 20:00
PROVIDERS: Family Medicine; ADMIT Family Medicine; ATTEND Family Medicine
DX: T81.31XA Disruption of external operation (surgical) wound, not elsewhere classified, initial encounter (principal); C20 Malignant neoplasm of rectum

== ENCOUNTER 2019-06-30 15:19 | Inpatient (IN) | payer MEDICARE, MEDICAID ==
[~2019-06-30] VITALS: Ht 185.4 cm; Wt 131.5 kg
--- NOTE | ~2019-06-30 | DS ---
PATIENT:OLAMIDE SOTO :87 MEDICAL RECORD: [id number] DISCHARGE SUMMARY ADMISSION DATE: 06/30/19 DISCHARGE DATE: 07/09/19 DATE OF ADMISSION: 06/30/2019. DATE OF DISCHARGE: 07/09/2019. ADMISSION DIAGNOSES: 1. Rectal cancer status post abdominoperineal resection. 2. Perineal wound infection with abscess. 3. Autism. DISCHARGE DIAGNOSES: 1. Rectal cancer status post abdominoperineal resection. 2. Perineal wound infection with abscess. 3. Autism. CONSULTATIONS: None. PROCEDURE: None. REPORT OF HOSPITALIZATION: The patient was admitted to the hospital after he had been home from [place]. The patient developed significant drainage from his perineal wound, which was bloody and concern was of further bleeding and possible infection as there was foul smelling. The patient was admitted to the hospital and placed on IV antibiotics. The patient improved significantly over that time, but continued to have a large amount of output from the perineal wound. He eventually grew out Escherichia coli and vancomycin sensitive enterococcus. The patient was placed on appropriate antibiotics for this and was set up to go to a nursing/rehab facility. The patient was getting daily dressing changes performed, which he was tolerating well. He was tolerating a diet. Overall, he improved significantly on his time in the hospital. The patient had a midline placed for discharge to continue IV antibiotics at the facility. One of the big issues with his hospitalization was trying to keep dressings and ostomy appliances on him as he would mess with these things almost immediately. With the patient's mental capacity, it was difficult to get him to understand to leave these alone. On the day of discharge, he was set up for a nursing rehab facility on IV vancomycin and gentamicin. DISCHARGE INSTRUCTIONS: Return to clinic or call with any questions or concerns, fevers, chills, nausea, vomiting or worsening abdominal pain. DISCHARGE MEDICATIONS: 1. Gentamicin 200 mg IV q.12 hours. 2. Vancomycin 1500 mg IV q.12 hours. 3. Calmar 10 p.r.n. 4. Protonix 40 mg daily. 5. MiraLax 17 grams p.o. b.i.d. DIET: As tolerated. FOLLOWUP: In clinic with dc in 2 weeks. TRANSINT:[id number] Voice Confirmation ID: [id number] DOCUMENT ID: [id number] DISCHARGE SUMMARY REPORT [id number] OLAMIDE SOTO CHRISTIAN MD CC: [id number] DICTATION DATE: 08/27/19 1350 JOINT RUNNER: 08/28/19 0016 DIS IN 07/09/19 [place] [id number] [place] [id number]
[~2019-06-30 15:19] MED LIST changes: +MIRALAX17 GM PO; +PROTONIX40 MG PO
[2019-06-30 15:55] LABS: BASOPHILS 0.2 % (0-2); EOSINOPHILS 0 % (0-7); HEMATOCRIT 29.2 % (42.0-54.0); HEMOGLOBIN 9.5 g/dL (13.5-17.5); IMMATURE GRANULOCYTES 0.1 % (0-5); LYMPHOCYTES 6.3 % (15-50); MCHC 32.5 g/dL (31.0-37.0); MEAN PLATELET VOLUME 9.3 fL (7.4-10.4); MONOCYTES 10.7 % (2-11); NEUTROPHILS 82.7 % (40-80); RBC 3.28 10x6/uL (4.20-6.10); WBC 9.6 10x3/uL (4.8-10.8)
[2019-06-30 16:00] LABS: PLATELET COUNT 493 10x3/uL (130-400)
[2019-06-30 16:07] LABS: APTT 29.3 SECONDS (22.8-39.4); INR 1.31 (0.85-1.17); PROTIME 15.7 SECONDS (11.6-15.0)
[2019-06-30 16:12] LABS: ALKALINE PHOSPHATASE 73 U/L (46-116); ALT (SGPT) 17 U/L (10-68); BILIRUBIN - TOTAL 0.91 mg/dL (0.2-1.3); CALC OSMOLALITY 268 mosm/kg (275-300); CALCIUM 8.7 mg/dL (8.5-10.1); CHLORIDE - SERUM 98 mmol/L (98-107); GLUCOSE 142 mg/dL (74-106); POTASSIUM - SERUM 3.8 mmol/L (3.5-5.1); PROTEIN - SERUM 8.4 g/dL (6.4-8.2); SODIUM 134 mmol/L (136-145); UREA NITROGEN 11 mg/dL (7-18); eGFR NON AFRICAN AMERICAN > 90 mL/min (90-120)
[2019-06-30 18:07] VITALS: BP 107/70
--- NOTE | 2019-06-30 19:00 | NUR ---
PT LINENS AND BRIEF CHANGED AT THIS TIME. PT FAMILY AT BEDSIDE.
[2019-06-30 23:34] VITALS: BP 128/83; BMI 38.3
[2019-07-01] VITALS: BP 124/68
--- NOTE | 2019-07-01 00:19 | NUR ---
PT WAS IN ROOM WITH THIN STOOL RUNNING FROM STOMA DOWN SIDE. CLEANED AND NEW COLOSTOMY APPLIED EDUCATED PT TO LEAVE IN PLACE. HE STATED "OK ISAAC". RETURENED TO ROOM PT HAD PULED OUT IV. AND PULLED OFF ID BANDS. 20 MAINOR TO LEFT AC WITH 1 ATEMPT. EDUCATED PT TO LEAVE IT IN HIS ARM WE NEEDED IT FOR HIM TO GET HIS MEDICAN. HE STATED "OK ISAAC". AT THIS TIME STILL IN PLACE.NO NEEDS SHOWED HOW TO USE CALL LIGHT .
[2019-07-01 04:00] VITALS: BP 117/62
[2019-07-01 06:12] LABS: BASOPHILS 0.1 % (0-2); EOSINOPHILS 0.3 % (0-7); HEMATOCRIT 27.2 % (42.0-54.0); HEMOGLOBIN 8.7 g/dL (13.5-17.5); IMMATURE GRANULOCYTES 0.3 % (0-5); LYMPHOCYTES 6.2 % (15-50); MCH 28.7 pg (26.0-34.0); MCV 89.8 fL (80.0-100.0); MEAN PLATELET VOLUME 9.4 fL (7.4-10.4); MONOCYTES 10.1 % (2-11); PLATELET COUNT 463 10x3/uL (130-400); RBC 3.03 10x6/uL (4.20-6.10); RDW 15.4 % (11.5-14.5)
[2019-07-01 06:20] LABS: CALC OSMOLALITY 271 mosm/kg (275-300); CARBON DIOXIDE 27.3 mmol/L (21.0-32.0); CHLORIDE - SERUM 100 mmol/L (98-107); CREATININE - SERUM 0.8 mg/dL (0.6-1.3); GLUCOSE 113 mg/dL (74-106); POTASSIUM - SERUM 4.1 mmol/L (3.5-5.1); SODIUM 136 mmol/L (136-145); UREA NITROGEN 9 mg/dL (7-18); eGFR NON AFRICAN AMERICAN > 90 mL/min (90-120)
[2019-07-01 06:29] LABS: WBC 7.1 10x3/uL (4.8-10.8)
[2019-07-01 08:43] VITALS: BP 124/66
--- NOTE | 2019-07-01 11:22 | NUR ---
I have reviewed this patient and I concur with the Shift Assessment completed by the Licensed Practical Nurse today this shift.
[2019-07-01 11:53] VITALS: BP 130/81
--- NOTE | 2019-07-01 13:13 | NUR ---
C/O BOTTOM PAIN RATING 8/10 ON PAIN SCALE. C/L IN REACH AT BEDSIDE.
[2019-07-01 14:49] VITALS: Ht 185.4 cm; Wt 131.5 kg
[2019-07-01 16:55] VITALS: BP 109/63
--- NOTE | 2019-07-01 19:30 | NUR ---
LYING IN BED WITH TELEVISION ON, MOOD AND AFFECT ARE PLEASANT WITH NO S/S OF ANY ACUTE DISTRESS. IV TO LEFT AC IS INFUSING NS PER ORDERS. DENIES ANY PAIN AT THIS TIME, BUT WILL CONTINUE TO ASSESS THROUGHOUT SHIFT. WILL NOTE ANY CHANGE.
[2019-07-01 20:15] VITALS: BP 111/65
[2019-07-02 00:47] VITALS: BP 116/62
--- NOTE | 2019-07-02 04:00 | NUR ---
I have reviewed this patient and I concur with the Shift Assessment completed by the Licensed Practical Nurse today this shift.
[2019-07-02 05:14] VITALS: BP 124/60
--- NOTE | 2019-07-02 07:36 | NUR ---
PT IS RESTING IN BED WITH EYES OPEN. RESPIRATIONS ARE EVEN AND UNLABORED. PT ANSWERS QUESTIONS SLOWLY BUT APPROPRIATLEY. PT WITH STUTTER. PIV TO RIGHT AC INFUSING WITHOUT DIFFICULTY. PT IS "PICKING" AT IV AND IV TUBING. IV SECURED WITH TAPE TO PT ARM AND TUBING HAS BEEN MOVED OUT OF PT DIRECT VIEW. COLOSTOMY IN PLACE. STOMA IS BEEFY RED AND LIGHT BROWN LOOSE STOOL NOTED TO COLLECTION BAG. ADAN NOTED TO MIDLINE ABDOMEN. PT DENIES PRESENCE OF PAIN/N/V AT THIS TIME. BED IS IN THE LOWEST POSITION. CALL LIGHT AND BEDSIDE TABLE ARE WITHIN REACH. SIDE RAILS X 2 WILL CONT TO MONITOR. PT DENIES FURTHER NEEDS.
[2019-07-02 08:37] VITALS: BP 118/78
[2019-07-02 11:41] VITALS: BP 114/65
--- NOTE | 2019-07-02 13:00 | NUR ---
PIV TO RIGHT AC IS OUT WITH CATHETER TIP INTACT. DRESSING APPLIED. WILL ATTEMPT TO RESITE IV.
--- NOTE | 2019-07-02 13:44 | NUR ---
UNSUCCESSFUL PIV ATTEMPTS X 2. VASCULAR ACCESS NURSE NOTIFIED OF NEED FOR IV ACCESS.
--- NOTE | 2019-07-02 14:00 | MORECARE ---
CASE MANAGEMENT DISCHARGE SUMMARY [facility] [id number] ADM DATE: 06/30/19 AGE: 33 : 86 SEX: M ROOM/BED: D.2234 AUTHOR: AGUSTIN PENA PHYSICIAN: REFERRING PHYSICIAN: LENNY JO MD DATE OF SERVICE: 07/02/19 Discharge Plan Patient Name: OLAMIDE FABIAN [facility] [facility] 1985 Planned Disposition: Detention Facility Anticipated Discharge Date: Discharge Date: Expected LOS: Initial Reviewer: [email or web address] Initial Review Date: 07/02/2019 Generated: 07/02/19 3:00 pm DCPIA - Discharge Planning Initial Assessment Updated by [email or web address]: Svitlana Paige on 07/02/19 1:58 pm * Is the patient Alert and Oriented? Yes * PCP Rohan Russell * Pharmacy [facility] in [place] * Preadmission Environment Home with Family * ADLs Independent * Equipment None * List name and contact numbers for known caregivers / representatives who currently or will assist patient after discharge: Kaylyn Fabian - mother - [phone] * Verbal permission to speak to the caregivers and representatives has been obtained from the patient. N/A * Community resources currently utilized Home Health * Please name any agencies selected above. [facility] * Additional services required to return to the preadmission environment? Yes * Can the patient safely return to the preadmission environment? Yes * Has this patient been hospitalized within the prior 30 days at any hospital? Yes External Providers External Provider: [facility] Next Contact Date: Service Request Date: Service Type: Resolution: Reviewer: Comments: Patient Name: OLAMIDE FABIAN Page [id number] at 1400 All edits/amendments must be made on the electronic document DICTATION DATE: 07/02/19 1400 REFRACTORY FURNACE DESIGNER: KEKE 07/02/19 1400 RPT#: [id number] DC DATE: STATUS: ADM IN [facility] [address] [place] [address] END OF REPORT
--- NOTE | 2019-07-02 14:08 | MORECARE ---
CASE MANAGEMENT DISCHARGE SUMMARY PATIENT: OLAMIDE FABIAN UNIT: [id number] ADM DATE: 06/30/19 AGE: 33 : 87 SEX: M ROOM/BED: D.2234 AUTHOR: JEANDOC PHYSICIAN: REFERRING PHYSICIAN: LENNY JO MD DATE OF SERVICE: 07/02/19 Discharge Plan Patient Name: OLAMIDE FABIAN Facility: [facility]:[place] : 1985 Planned Disposition: Jail Facility Anticipated Discharge Date: Discharge Date: Expected LOS: Initial Reviewer: [email or web address] Initial Review Date: 07/02/2019 Generated: 07/02/19 3:08 pm Comments DCP- Discharge Planning Updated by [email or web address]: Svitlana Paige on 07/02/19 1:[address] Patient Name: OLAMIDE FABIAN Admission Status: ER Accout number: [id number] Admission Date: 06-30-2019 : 1985 Admission Diagnosis: Attending: LENNY JO Current LOS: 2 Anticipated DC Date: Planned Disposition: Jail Facility Primary Insurance: [employer] MEDICARE ADV Discharge Planning Comments: CM spoke with patient's mother on the phone to discuss discharge planning. She states she would like him to go to [place] for wound care. I informed her that he would need authorization from insurance for this, but I would put a referral in to [facility]. She does not have a second choice at this time. She asks if I can call her if [facility] cannot accept him. I faxed clinical and sent a message to Christy Pierce on referral. CM will need to do a SHARAN for approval. CM will continue to follow and assist with discharge planning/needs. Silk Weaver: Svitlana Paige DCPIA - Discharge Planning Initial Assessment Updated by [email or web address]: Svitlana Paige on 07/02/19 1:58 pm * Is the patient Alert and Oriented? Yes * PCP Rohan Russell * Pharmacy [facility] in [place] * Preadmission Environment Home with Family * ADLs Independent * Equipment None * List name and contact numbers for known caregivers / representatives who currently or will assist patient after discharge: Kaylyn Fabian - mother - [phone] * Verbal permission to speak to the caregivers and representatives has been obtained from the patient. N/A * Community resources currently utilized Home Health * Please name any agencies selected above. [facility] * Additional services required to return to the preadmission environment? Yes * Can the patient safely return to the preadmission environment? Yes * Has this patient been hospitalized within the prior 30 days at any hospital? Yes Coverage Notice Reviewer: [email or web address] Deidra Paige Notice Issued Date-Time: 07/02/2019 14:03 Notice Type: Patient Choice Letter Notice Delivered To: Family Member Relationship to Patient: Mother Manager Process Name: Kaylyn Fabian Delivery Method: HAND - Hand Delivered Sharla Days: Prior Verbal Notification: Recipient Understood Notice: Yes Recipient Signature: Med Rec Note Co-signed by Attending: Coverage Notice Comment: JEREMY for [facility] Last DP export: 07/02/19 1:00 p Patient Name: OLAMIDE FABIAN Page [phone] at 1408 All edits/amendments must be made on the electronic document DICTATION DATE: 07/02/191407 HARNESS CLEANER: KEKE 07/02/19 140 RPT#: [id number] DC DATE: STATUS: ADM IN [facility] [address] [place] [address] END OF REPORT
--- NOTE | 2019-07-02 15:02 | NUR ---
DRESSING CHANGED PER ORDER. MESH UNDERWARE PLACED ON PT. BED LINENS CHANGED. PT TOLERATED WELL. PT DENIES FURTHER NEEDS. BED IS IN THE LOWEST POSITION. CALL LIGHT AND BEDSIDE TABLE ARE WITHIN REACH. WILL CONT TO MONITOR.
[2019-07-02 15:40] VITALS: BP 96/41
--- NOTE | 2019-07-02 16:50 | NUR ---
PT IS RESTING COMFORTABLY AT THIS TIME. RESPIRATIONS ARE EVEN AND UNLABORED. NO APPARENT S/S NOTED AT THIS TIME. BED IS IN THE LOWEST POSITION. CALL LIGHT AND BEDSIDE TABLE ARE WITHIN REACH. SIDE RAILS X 2. WILL CONT TO MONITOR.
[2019-07-02 20:43] VITALS: BP 106/64
--- NOTE | 2019-07-03 00:23 | NUR ---
I have reviewed this patient and I concur with the Shift Assessment completed by the Licensed Practical Nurse today this shift.
[2019-07-03 01:15] VITALS: BP 107/60
[2019-07-03 05:02] VITALS: BP 112/72
[2019-07-03 05:34] LABS: BASOPHILS 0.2 % (0-2); EOSINOPHILS 1.5 % (0-7); HEMATOCRIT 24.6 % (42.0-54.0); HEMOGLOBIN 7.9 g/dL (13.5-17.5); IMMATURE GRANULOCYTES 0.2 % (0-5); LYMPHOCYTES 8.3 % (15-50); MCH 28.6 pg (26.0-34.0); MCHC 32.1 g/dL (31.0-37.0); MCV 89.1 fL (80.0-100.0); MEAN PLATELET VOLUME 9.2 fL (7.4-10.4); MONOCYTES 16.4 % (2-11); NEUTROPHILS 73.4 % (40-80); PLATELET COUNT 403 10x3/uL (130-400); RBC 2.76 10x6/uL (4.20-6.10); RDW 15.6 % (11.5-14.5)
[2019-07-03 06:07] LABS: WBC 4.6 10x3/uL (4.8-10.8)
[2019-07-03 08:22] VITALS: BP 105/58
--- NOTE | 2019-07-03 09:13 | MORECARE ---
CASE MANAGEMENT DISCHARGE SUMMARY PATIENT: OLAMIDE FABIAN UNIT: [id number] ADM DATE: 06/30/19 AGE: 33 : 87 SEX: M ROOM/BED: D.2234 AUTHOR: JEANDOC PHYSICIAN: REFERRING PHYSICIAN: LENNY JO MD DATE OF SERVICE: 07/03/19 Discharge Plan Patient Name: OLAMIDE FABIAN Facility: [facility]:[place] : 1985 Planned Disposition: Half-Way Facility Anticipated Discharge Date: Discharge Date: Expected LOS: Initial Reviewer: [email or web address] Initial Review Date: 07/02/2019 Generated: 07/03/19 10:13 am DCP- Discharge Planning Updated by [email or web address]: Svitlana Paige on 07/03/19 8:[address] Updated clinical faxed to [facility]. SHARAN sent to [facility] for approval to [facility]. CM will continue to follow and assist with discharge planning/needs. DCP- Discharge Planning Updated by [email or web address]: Svitlana Paige on 07/02/19 1:[address] Patient Name: OLAMIDE FABIAN Admission Status: ER Accout number: [id number] Admission Date: 06-30-2019 : 1985 Admission Diagnosis: Attending: LENNY JO Current LOS: 2 Anticipated DC Date: Planned Disposition: Half-Way Facility Primary Insurance: [employer] ADV Discharge Planning Comments: CM spoke with patient's mother on the phone to discuss discharge planning. She states she would like him to go to [facility] for wound care. I informed her that he would need authorization from insurance for this, but I would put a referral in to [facility]. She does not have a second choice at this time. She asks if I can call her if [facility] cannot accept him. I faxed clinical and sent a message to Christy Pierce on referral. CM will need to do a SHARAN for approval. CM will continue to follow and assist with discharge planning/needs. Netbackup Engineer: Svitlana Paige DCPIA - Discharge Planning Initial Assessment Updated by [email or web address]: Svitlana Paige on 07/02/19 1:58 pm * Is the patient Alert and Oriented? Yes * PCP Rohan Russell * Pharmacy [facility] in [place] * Preadmission Environment Home with Family * ADLs Independent * Equipment None * List name and contact numbers for known caregivers / representatives who currently or will assist patient after discharge: aKylyn Fabian - mother - [phone] * Verbal permission to speak to the caregivers and representatives has been obtained from the patient. N/A * Community resources currently utilized Home Health * Please name any agencies selected above. [facility] * Additional services required to return to the preadmission environment? Yes * Can the patient safely return to the preadmission environment? Yes * Has this patient been hospitalized within the prior 30 days at any hospital? Yes External Providers External Provider: RA Son Next Contact Date: Service Request Date: Service Type: Resolution: Reviewer: Comments: Coverage Notice Reviewer: [email or web address] Deidra Paige Notice Issued Date-Time: 07/02/2019 14:03 Notice Type: Patient Choice Letter Notice Delivered To: Family Member Relationship to Patient: Mother Counter Help Name: Kaylyn Fabian Delivery Method: HAND - Hand Delivered Sharla Days: Prior Verbal Notification: Recipient Understood Notice: Yes Recipient Signature: Med Rec Note Co-signed by Attending: Coverage Notice Comment: JEREMY for [facility] Last DP export: 07/02/19 1:08 p Patient Name: OLAMIDE FABIAN Page 14041 at 0913 All edits/amendments must be made on the electronic document DICTATION DATE: 07/03/19912 SUPERVISOR STEFFEN HOUSE: KEKE 07/03/19912 RPT#: [id number] DC DATE: STATUS: ADM IN [facility] [address] [place] [address] END OF REPORT
[2019-07-03 11:05] VITALS: BP 105/41
--- NOTE | 2019-07-03 12:23 | MORECARE ---
CASE MANAGEMENT DISCHARGE SUMMARY PATIENT: OLAMIDE FABIAN UNIT: [id number] ADM DATE: 06/30/19 AGE: 33 : 87 SEX: M ROOM/BED: D.2234 AUTHOR: AGUSTIN PENA PHYSICIAN: REFERRING PHYSICIAN: LENNY JO MD DATE OF SERVICE: 07/03/19 Discharge Plan Patient Name: OLAMIDE FABIAN Facility: [facility]:[place] : 1985 Planned Disposition: Senior Care Facility Anticipated Discharge Date: Discharge Date: Expected LOS: Initial Reviewer: [id number] Initial Review Date: 07/02/2019 Generated: 07/03/19 1:23 pm Comments DCP- Discharge Planning Updated by [email or web address]: Svitlana Paige on 07/03/19 11:[address] [facility] approval received and faxed to [facility]. I spoke with Josephine with [facility] and informed her that I had sent a referral for SNF to [facility]. She states she will help with getting insurance authorization. CM will continue to follow and assist with discharge planning/needs. DCP- Discharge Planning Updated by [email or web address]: Svitlana Paige on 07/03/19 8:[address] Updated clinical faxed to [facility]. SHARAN sent to [facility] for approval to SNF. CM will continue to follow and assist with discharge planning/needs. DCP- Discharge Planning Updated by [id number]: Svitlana Paige on 07/02/19 1:[address] Patient Name: OLAMIDE FABIAN Admission Status: ER Accout number: [id number] Admission Date: 06-30-2019 : 1985 Admission Diagnosis: Attending: LENNY JO Current LOS: 2 Anticipated DC Date: Planned Disposition: Senior Care Facility Primary Insurance: WELL[employer] MEDICARE ADV Discharge Planning Comments: CM spoke with patient's mother on the phone to discuss discharge planning. She states she would like him to go to [facility] for wound care. I informed her that he would need authorization from insurance for this, but I would put a referral in to [facility]. She does not have a second choice at this time. She asks if I can call her if [facility] cannot accept him. I faxed clinical and sent a message to Christy Pierce on referral. CM will need to do a SHARAN for approval. CM will continue to follow and assist with discharge planning/needs. Solar Electric Installer: Svitlana oRyal DCPIA - Discharge Planning Initial Assessment Updated by [id number]: Svitlana Paige on 07/02/19 1:58 pm * Is the patient Alert and Oriented? Yes * PCP Rohan Russell * Pharmacy [facility] in [place] * Preadmission Environment Home with Family * ADLs Independent * Equipment None * List name and contact numbers for known caregivers / representatives who currently or will assist patient after discharge: Kaylyn Fabian - mother - [phone] * Verbal permission to speak to the caregivers and representatives has been obtained from the patient. N/A * Community resources currently utilized Home Health * Please name any agencies selected above. [facility] * Additional services required to return to the preadmission environment? Yes * Can the patient safely return to the preadmission environment? Yes * Has this patient been hospitalized within the prior 30 days at any hospital? Yes Coverage Notice Reviewer: [id number] - Svitlana Paige Notice Issued Date-Time: 07/02/2019 14:03 Notice Type: Patient Choice Letter Notice Delivered To: Family Member Relationship to Patient: Mother Reading Efficiency Course Director Name: Kaylyn Fabian Delivery Method: HAND - Hand Delivered Sharla Days: Prior Verbal Notification: Recipient Understood Notice: Yes Recipient Signature: Med Rec Note Co-signed by Attending: Coverage Notice Comment: JEREMY for [facility] Last DP export: 07/03/19 8:13 a Patient Name: OLAMIDE FABIAN Page [phone] at 1223 All edits/amendments must be made on the electronic document DICTATION DATE: 07/03/19 1223 CROWN PERFORATOR OPERATOR: KEKE 07/03/19 1223 RPT#: [id number] DC DATE: STATUS: ADM IN [facility] [address] [place] [address] END OF REPORT
--- NOTE | 2019-07-03 16:01 | NUR ---
I have reviewed this patient and I concur with the Shift Assessment completed by the Licensed Practical Nurse today this shift.
--- NOTE | 2019-07-03 16:27 | NUR ---
REMOVED PT ADAN AND PT TOLERATED WELL, ADMINISTERED PAIN MEDICATION AFTERWARDS, CJANGED DRESSING TO BACKSIDE, AND CHANGED COLOSTOMY 3 TIMES SO FAR. NO OTHER NEEDS AT THIS TIME, CONTINUE WITH PLAN OF CARE
--- NOTE | 2019-07-03 18:43 | NUR ---
OT NOTE: PT COMPLETED ADL MOB WITH CGA. PT COMPLETED BED MOB WITH CGA. PT COMPLETED HYGIENE TASKS WITH SET UP TO MIN A. THANK YOU, EDISON DAVIS
--- NOTE | 2019-07-03 19:45 | NUR ---
LYING IN BED. HAS PULLED PINK PAD OUT FROM UNDER HIM AND THROWN IT ON THE FLOOR. PT OBSERVED TRYING TO PULL COLOSTOMY BAG OFF. INSTRUCTED PT NOT TO DO THIS. SMALL AMOUNT OF YELLOW LIQ STOOL IN BAG. DRSG NOTED TO PERIRECTAL AREA. SCAR NOTED TO MIDLINE ABD INCISION WITH SMALL DRSG AT BOTTOM OF INCISION THAT IS C/D/I. DENIES PAIN. ALERT AND ORIENTED TO SELF AND PLACE ONLY. AUTISTIC. SALINE LOCK NOTED TO LT WRIST. CL IN REACH. NO DISTRESS.
[2019-07-03 20:34] VITALS: BP 113/62
[2019-07-04 00:41] VITALS: BP 124/60
--- NOTE | 2019-07-04 03:30 | NUR ---
HASNT SLEPT MUCH TONIGHT. REQUESTING SNACKS AND DRINKS FREQUENTLY. NO DISTRESS. COLOSTOMY BURPED AT THIS TIME. CL IN REACH.
--- NOTE | 2019-07-04 05:00 | NUR ---
PULLED IV OUT, PULLED PERINEAL DRSG OFF, ABD DRSG OFF AND PULLED COLOSTOMY LOOSE. INSTRUCTED TO STOP PULLING AND REMOVING THINGS. HE STATED, "OK." NEW COLOSTOMY APPLIANCE APPLIED AT THIS TIME. 4X4S AND ABD APPLIED TO PERINEUM BEST STAFF COULD DUE TO PT BEING UNCOOPERATIVE. IV RESTARTED IN RT HAND WITH 22G AND WRAPPED IN KERLIX.
[2019-07-04 05:12] VITALS: BP 120/64
--- NOTE | 2019-07-04 06:50 | NUR ---
RESTING IN BED, EYES CLOSED. RESPIRATIONS EVEN AND UNLABORED. IV TO RIGHT HAND, SL. SITE PATENT WTIHOUT REDNESS OR SWELLING. MIDLINE INCISION TO ABDOMEN, COLOSTOMY PRESENT TO LEFT UPPER ABD, STOMA LARGE/PINK. EDEMA TO BLE. H&H LOW THIS AM. NO S/S OF ACUTE DISTRESS NOTED. WILL CONTINUE TO MONITOR.
[2019-07-04 08:34] VITALS: BP 106/61
--- NOTE | 2019-07-04 11:45 | NUR ---
OT NOTE: PT PERFORMED WELL TODAY. BED MOB WITH SBA. REQUIRED MIN ASSIST TO RASHEED PULL UPS WHILE SITTING ON EOB. PT ATTEMPTED TO STAND AND RASHEED BRIEFS; EDUCATED PT ON SAFETY HIS DYNAMIC STANDING BALANCE IS FAIR, AT BEST. PT AMBULATES WITHIN ROOM AND HALLWAY WITH MIN ASSIST AND NO AD. PT CONT TO C/O RECTAL PAIN AND IS UNABLE TO SIT UP IN CHAIR; BLEEDING CONTINUES AND PADS WERE CHANGED AND BRIEF WAS REMOVED. UE EXS FOR ENDURANCE. SAUNDRA HARRISON, OTR/L
--- NOTE | 2019-07-04 12:10 | NUR ---
OT NOTE: PT COMPLETED ADL MOB WITH SBA. PT COMPLETED SIT TO STAND WITH SBA. PT COMPLETED FACE WASH WITH SETUP. THANK YOU, EDISON DAVIS
--- NOTE | 2019-07-04 12:10 | MORECARE ---
CASE MANAGEMENT DISCHARGE SUMMARY PATIENT: OLAMIDE FABIANDC UNIT: [id number] ADM DATE: 06/30/19 AGE: 33 : 86 SEX: M ROOM/BED: D.2234 AUTHOR: AGUSTIN PENA PHYSICIAN: REFERRING PHYSICIAN: LENNY JO MD DATE OF SERVICE: 07/04/19 Discharge Plan Patient Name: OLAMIDE FABIAN Facility: [facility]:[place] : 1985 Planned Disposition: [facility] Facility Anticipated Discharge Date: Discharge Date: Expected LOS: Initial Reviewer: [email or web address] Initial Review Date: 07/02/2019 Generated: 07/04/19 1:10 pm Comments DCP- Discharge Planning Updated by [id number]: Svitlana Paige on 07/04/19 11:[address] Called [facility] and spoke with Christy, updated clinical faxed per request. CM will continue to follow and assist with discharge planning/needs. DCP- Discharge Planning Updated by [email or web address]: Svitlana Paige on 07/03/19 11:[address] [place] approval received and faxed to [facility]. I spoke with Josephine with [facility] and informed her that I had sent a referral for SNF to [facility]. She states she will help with getting insurance authorization. CM will continue to follow and assist with discharge planning/needs. DCP- Discharge Planning Updated by [id number]: Svitlana Paige on 07/03/19 8:[address] Updated clinical faxed to [facility]. SHARAN sent to [facility] for approval to SNF. CM will continue to follow and assist with discharge planning/needs. DCP- Discharge Planning Updated by [id number]: Svitlana Paige on 07/02/19 1:[address] Patient Name: OLAMIDE FABIAN Admission Status: ER Accout number: [id number] Admission Date: 06-30-2019 : 1985 Admission Diagnosis: Attending: LENNY JO Current LOS: 2 Anticipated DC Date: Planned Disposition: [facility] Facility Primary Insurance: WELLCARE MEDICARE ADV Discharge Planning Comments: CM spoke with patient's mother on the phone to discuss discharge planning. She states she would like him to go to [facility] for wound care. I informed her that he would need authorization from insurance for this, but I would put a referral in to [facility]. She does not have a second choice at this time. She asks if I can call her if [facility] cannot accept him. I faxed clinical and sent a message to Christy Pierce on referral. CM will need to do a SHARAN for approval. CM will continue to follow and assist with discharge planning/needs. Value Stream Leader: Svitlana Paige DCPIA - Discharge Planning Initial Assessment Updated by [id number]: Svitlana Paige on 07/02/19 1:58 pm * Is the patient Alert and Oriented? Yes * PCP Rohan Russell * Pharmacy [facility] in [place] * Preadmission Environment Home with Family * ADLs Independent * Equipment None * List name and contact numbers for known caregivers / representatives who currently or will assist patient after discharge: Kaylyn Fabian - mother - [phone] * Verbal permission to speak to the caregivers and representatives has been obtained from the patient. N/A * Community resources currently utilized Home Health * Please name any agencies selected above. [facility] * Additional services required to return to the preadmission environment? Yes * Can the patient safely return to the preadmission environment? Yes * Has this patient been hospitalized within the prior 30 days at any hospital? Yes Coverage Notice Reviewer: [id number] - Svitlana Paige Notice Issued Date-Time: 07/02/2019 14:03 Notice Type: Patient Choice Letter Notice Delivered To: Family Member Relationship to Patient: Mother Embroidery Worker Name: Kaylyn Fabian Delivery Method: HAND - Hand Delivered Sharla Days: Prior Verbal Notification: Recipient Understood Notice: Yes Recipient Signature: Med Rec Note Co-signed by Attending: Coverage Notice Comment: JEREMY for [facility] Last DP export: 07/03/19 11:23 a Patient Name: OLAMIDE FABIAN Page [phone] at 1210 All edits/amendments must be made on the electronic document DICTATION DATE: 07/04/19 121 INSPECTOR: KEKE 07/04/19 121 RPT#: [id number] DC DATE: STATUS: ADM IN [facility] [address] [place] [address] END OF REPORT
[2019-07-04] MEDS ORDERED: LEVAQUIN750 MG PO (12:56)
[2019-07-04 13:09] VITALS: BP 115/64
--- NOTE | 2019-07-04 14:02 | NUR ---
INCISION THAT CLOSED RECTUM AFTER SURGERY ON 06/18/19 HAS 1 1CM X 0.5CM X 1CM OPEN AREA. IT HAS A MODERATE BLOODY DRAINAGE. ORDERS FROM DR. JO STATE TO PACK AREA WITH 1/2" PACKING DAILY. THE AREA IS CLEAN AND HAS NO SIGN OF INFECTION. THERE IS NO ODOR NOTED. HE HAS LLQ COLOSTOMY WITH RED STOMA. NO ISSUES NOTED. WOUND CARE MONITORING.
--- NOTE | 2019-07-04 15:01 | NUR ---
NUTRITION F/U CHART REVIEWED. NO FAMILY PRESENT IN ROOM. PT TOLERATING REGULAR DIET WITH 25 TO 100% INTAKE RECENT MEALS. WILL CONTINUE TO PROVIDE DIET, MONITOR PO INTAKE. REMAINS AT LOW NUTRITIONAL RISK. RD FOLLOWING
[2019-07-04 17:11] VITALS: BP 118/60
--- NOTE | 2019-07-04 17:15 | NUR ---
I have reviewed this patient and I concur with the Shift Assessment completed by the Licensed Practical Nurse today this shift.
--- NOTE | 2019-07-04 18:53 | NUR ---
ENTERED PT'S ROOM, COLOSTOMY BAG LEAKED ON BED. CHANGED BED LINEN, AND GAVE PT BED BATH. ALERT AND ORIENTED X1. NO C/O PAIN. NO S/S OF ACUTE DISTRESS NOTED. CALL LIGHT IN REACH. WILL CONTINUE TO MONITOR. PT DENIES ANY NEEDS AT THIS TIME.
--- NOTE | 2019-07-04 19:50 | NUR ---
LYING IN BED. ALERT AND ORIENTED TO SELF AND PLACE. CONFUSED TO TIME AND SITUATION. RESP EVEN AND NONLABORED. COLOSTOMY NOTED WITH YELLOWISH/BROWN SEMI LIQUID STOOL IN BAG. DENIES PAIN. SALINE LOCK NOTED TO RT HAND. EDEMA NOTED TO BLE. DENIES NEEDS. SR ELEVATED X2. CL IN REACH.
[2019-07-04 21:46] VITALS: BP 107/53
[2019-07-05 01:27] VITALS: BP 121/68
--- NOTE | 2019-07-05 02:08 | NUR ---
HAS RESTED WELL SO FAR THIS SHIFT. NO DISTRESS. CL IN REACH.
[2019-07-05 05:29] VITALS: BP 116/69
--- NOTE | 2019-07-05 06:50 | NUR ---
RESTING IN BED, EYES OPEN. NO C/O PAIN. NO S/S OF ACUTE DISTRESS NOTED. PT AUTISTIC. COLOSTOMY PRESENT TO LEFT UPPER ABDOMEN. MIDLINE INCISION TO ABDOMEN, OPEN TO AIR. EDEMA BLE, 2+. IV TO RIGHT HAND, SL. SITE PATENT WITHOUT REDNESS OR SWELLING. PT DENIES ANY NEEDS AT THIS TIME. CALL LIGHT IN REACH. WILL CONTINUE TO MONITOR.
[2019-07-05 08:50] LABS: BASOPHILS 0.2 % (0-2); EOSINOPHILS 0.9 % (0-7); HEMATOCRIT 25.2 % (42.0-54.0); HEMOGLOBIN 7.9 g/dL (13.5-17.5); IMMATURE GRANULOCYTES 0.4 % (0-5); LYMPHOCYTES 8.4 % (15-50); MCH 27.9 pg (26.0-34.0); MCHC 31.3 g/dL (31.0-37.0); MEAN PLATELET VOLUME 8.3 fL (7.4-10.4); MONOCYTES 11.9 % (2-11); NEUTROPHILS 78.2 % (40-80); PLATELET COUNT 362 10x3/uL (130-400); RBC 2.83 10x6/uL (4.20-6.10); RDW 15.7 % (11.5-14.5); WBC 5.6 10x3/uL (4.8-10.8)
[2019-07-05 12:21] VITALS: BP 115/61
--- NOTE | 2019-07-05 16:04 | NUR ---
OT NOTE: PT COMPLETED BUE AROM EXS. THANK YOU, EDISON DAVIS
[2019-07-05 17:39] VITALS: BP 117/60
--- NOTE | 2019-07-05 18:44 | NUR ---
RESTING IN BED, EYES OPEN. NO C/O PAIN. NO S/S OF ACUTE DISTRESS NOTED. DENIES ANY NEEDS AT THIS TIME. CALL LIGHT IN REACH. WILL CONTINUE TO MONITOR.
--- NOTE | 2019-07-05 19:15 | NUR ---
PATIENT ALERT AND ORIENTED TO SELF AND SITUATION. HAS MIDLINE INCISION THAT IS HEALING WITH SCABS AND DRY SKIN NOTED TO THE AREA. BED WAS STAINED WITH DRIED BLOOD FROM RECTAL INCISION. CLEANED AREA AND PROVIDED DRESSING CHANGE AND BED CHANGE. ELVIS ALARM ON. RIGHT HAND IV THAT IS SALINE LOCKED. PLACED NEW URINAL IN ROOM TO ATTEMPT TO OBTAIN URINE SAMPLE. DENIES NEEDS AT THIS TIME. CALL LIGHT IN REACH. CPOC.
[2019-07-05 20:00] VITALS: BP 119/68
[2019-07-06] VITALS: BP 115/66
[2019-07-06 02:35] LABS: APPEARANCE CLEAR (CLEAR); BILIRUBIN NEGATIVE (NEGATIVE); COLOR YELLOW (YELLOW); GLUCOSE NEGATIVE (NEGATIVE); KETONE NEGATIVE (NEGATIVE); NITRITE NEGATIVE (NEGATIVE); PROTEIN NEGATIVE (NEGATIVE); SPECIFIC GRAVITY 1.015 (1.005-1.020); UROBILINOGEN NORMAL (NORMAL)
--- NOTE | 2019-07-06 03:37 | NUR ---
OSTOMY CHANGED. STOMA PINK, BEEFY, AND PROTRUDES THROUGH OPENING. STOOL PASSING THROUGH WITH NO ISSUE. NO COMPLAINTS OF PAIN.
--- NOTE | 2019-07-06 03:54 | NUR ---
SEVERAL BED CHANGES THROUGH OUT THE NIGHT. 3X DRESSING CHANGES PATIENT PULLS OFF DRESSING AND MESH UNDERWEAR
[2019-07-06 04:00] VITALS: BP 110/59
--- NOTE | 2019-07-06 06:17 | NUR ---
PATIENT PULLED OUT IV AND REMOVED PADDING FROM BED WELL DRESSING TO RECTAL AREA. REAPPLIED AND STARTED 20 G IV TO THE RIGHT FOREARM. REDRESSED WOUND AND BED CHANGE PROVIDED.
--- NOTE | 2019-07-06 07:00 | NUR ---
PATIENT RECIEVED FROM PREVIOUS SHIFT RESTING WITH NO NEEDS VOICED. DRESSING TO RECTAL AREA WITH LARGE AMOUNT OF BLOOD DINGED DRAINAGE, DRESSING CHANGED AND PATIENT ASSISTED TO CHAIR FOR AM MEAL.
[2019-07-06 08:41] VITALS: BP 120/56
--- NOTE | 2019-07-06 09:57 | NUR ---
NORCO GIVEN FOR C/O INCISIONAL PAIN AFTER SITTING UP FOR MEAL. PATIENT IS RESTING QUIETLY WITH EYES CLOSED. CL IN REACH
[2019-07-06 14:19] VITALS: BP 114/49
--- NOTE | 2019-07-06 18:33 | NUR ---
PATIENTS BEDING CHANGED DUE TO BLOOD TINGED DRAINING FROM RECTAL INCISION. PATIENT IS UNCOMFORTABLE WEARING MESH UNDERWEAR AND WILL NOT LEAVE ON. PATIENT AGREED TO LAYING ON WHITE PAD AND ALLOWING NURSE TO CHANGE PAD. PATIENT DENIES ANY OTHER NEEDS AT THIS TIME. CL IN REACH
[2019-07-06 20:00] VITALS: BP 123/76
[2019-07-07] VITALS: BP 123/71
--- NOTE | 2019-07-07 02:50 | NUR ---
PT RESTING IN BED. EYES CLOSED. NO SIGNS OF DISTRESS. BREATHING EVEN AND UNLABORED. IV SITE RT WRIST DRESSING CLEAN DRY AND INTACT. NO SIGNS OF INFECTION. LUNG SOUNDS CLEAR. BOWEL SOUNDS ACTIVE. ABD INCISION CLEAN DRY AND INTACT. LT LOWER ABD COLOSTOMY CLEAN DRY AND INTACT. STOMA LIGHT PINK. SKIN CLEAN DRY AND INTACT. WILL CONTINUE PLAN OF CARE. CALL LIGHT IN REACH. BED LOWERED AND LOCKED. BED RAILS UPX2.
[2019-07-07 04:00] VITALS: BP 130/66
--- NOTE | 2019-07-07 04:43 | NUR ---
I have reviewed this patient and I concur with the Shift Assessment completed by the Licensed Practical Nurse today this shift.
[2019-07-07 07:59] VITALS: BP 116/69
--- NOTE | 2019-07-07 08:00 | NUR ---
LYING IN BED,WITHOUT NEEDS.CALL LIGHT IN REACH
[2019-07-07 14:17] VITALS: BP 113/66
--- NOTE | 2019-07-07 15:59 | NUR ---
PT RESTING IN BED. NO SIGNS OF DISTRESS. IV TO RIGHT WRIST PATENT NO REDNESS OR TENDERENSS. HAS COLOSTOMY. COMPLAINS OF PAIN. MEDICATIONS GIVEN. DENIES ANY FURTHER NEED AT THIS TIME.CALL LIGHT IN REACH. NO FAMILY AT BEDSID ATE THIS TMIE
--- NOTE | 2019-07-07 19:30 | NUR ---
PATIENT ALERT WHEN ENTERING THE ROOM. PATIENT ORIENTED TO SELF AND THAT HE IS IN THE HOSPITAL BUT UNABLE TO STATE WHY. THIS IS NORMAL ORIENTATION FOR PATIENT. PATIENT FOLLOWS COMMANDS WHEN GIVEN AND TURNS ON HIS SIDE FOR THIS NURSE TO ASSESS RECTAL DRESSING AND WOUND. PATIENT HAS LARGE BROWN SPOT ON BED FROM RECTAL DISCHARGE/DRAINAGE. PROVIDED PATIENT WITH SHOWER AND BED CHANGE. RIGHT WRIST/FOREARM AREA IV IS PATENT AND SALINE LOCKED AT THIS TIME. PATIENT DOES NOT DISCLOSE ANY NEEDS. DOOR REMAINS OPEN TO MONITOR PATIENT FROM NURSES STATION. LINEN CHANGE PROVIDED FOR PATIENT AND RETURNED BACK TO BED SAFELY WITH THE BED IN LOWEST POSITION AND TWO SIDE RAILS UP AT THIS TIME. CPOC.
[2019-07-07 20:00] VITALS: BP 102/42
--- NOTE | 2019-07-08 03:35 | NUR ---
BED CHANGE PROVIDED. WOUND TO ANUS CHANGED.
--- NOTE | 2019-07-08 03:41 | NUR ---
I have reviewed this patient and I concur with the Shift Assessment completed by the Licensed Practical Nurse today this shift.
[2019-07-08 04:00] VITALS: BP 109/49
--- NOTE | 2019-07-08 06:34 | NUR ---
BED CHANGE PROVIDED. REDRESSED WOUND AND MESH UNDERWEAR PROCIDED.
--- NOTE | 2019-07-08 06:50 | NUR ---
RESTING IN BED, EYES CLOSED. RESPIRATIONS EVEN AND UNLABORED. NO C/O PAIN. NO S/S OF ACUTE DISTRESS NOTED. CALL LIGHT IN REACH. DENIES ANY NEEDS AT THIS TIME. WILL CONTINUE TO MONITOR.
[2019-07-08 08:36] VITALS: BP 112/61; BP 140/96
--- NOTE | 2019-07-08 09:07 | NUR ---
PT TOOK OFF DRESSING TO PERINEAL AREA AND PULLED OFF COLOSTOMY BAG. THIS NURSE PLACED A NEW COLOSTOMY WAFER AND BAG ON PT. APPLIED GAUZE AND ABD PAD TO PERINEAL AREA, COVERED WITH MESH PANTIES. THIS NURSE CHANGED OUT BED LINENS ON PT'S BED WELL.
--- NOTE | 2019-07-08 11:20 | MORECARE ---
CASE MANAGEMENT DISCHARGE SUMMARY PATIENT: OLAMIDE FABIAN UNIT: [id number] ADM DATE: 06/30/19 AGE: 33 : 87 SEX: M ROOM/BED: D.2234 AUTHOR: JEAN,DOC PHYSICIAN: REFERRING PHYSICIAN: LENNY JO MD DATE OF SERVICE: 07/08/19 Discharge Plan Patient Name: OLAMIDE FABIAN Facility: [facility]:[place] : 1985 Planned Disposition: [facility] Facility Anticipated Discharge Date: Discharge Date: Expected LOS: Initial Reviewer: [id number] Initial Review Date: 07/02/2019 Generated: 07/08/19 12:20 pm Comments DCP- Discharge Planning Updated by [id number]: Svitlana Paige on 07/08/19 10:[address] CM called Zully at [facility] and updated clinical faxed. Zully states she is about to go into morning meeting, then will return my call. I called patient's mother and update given. CM will continue to follow and assist with discharge planning/needs. DCP- Discharge Planning Updated by [id number]: Svitlana Paige on 07/04/19 11:[address] Called [facility] and spoke with Christy, updated clinical faxed per request. CM will continue to follow and assist with discharge planning/needs. DCP- Discharge Planning Updated by [id number]: Svitlana Paige on 07/03/19 11:[address] SHARAN approval received and faxed to [facility]. I spoke with Josephine with [facility] and informed her that I had sent a referral for SNF to [facility]. She states she will help with getting insurance authorization. CM will continue to follow and assist with discharge planning/needs. DCP- Discharge Planning Updated by [id number]: Svitlana Paige on 07/03/19 8:[address] Updated clinical faxed to [facility]. SHARAN sent to [facility] for approval to SNF. CM will continue to follow and assist with discharge planning/needs. DCP- Discharge Planning Updated by [id number]: Svitlana Paige on 07/02/19 1:[address] Patient Name: OLAMIDE FABIAN Admission Status: ER Accout number: [id number] Admission Date: 06-30-2019 : 1985 Admission Diagnosis: Attending: LENNY JO Current LOS: 2 Anticipated DC Date: Planned Disposition: [facility] Facility Primary Insurance: [employer] MEDICARE ADV Discharge Planning Comments: CM spoke with patient's mother on the phone to discuss discharge planning. She states she would like him to go to [facility] for wound care. I informed her that he would need authorization from insurance for this, but I would put a referral in to [facility]. She does not have a second choice at this time. She asks if I can call her if [facility] cannot accept him. I faxed clinical and sent a message to Christy Pierce on referral. CM will need to do a SHARAN for approval. CM will continue to follow and assist with discharge planning/needs. Change Control Manager: Svitlana Paige DCPIA - Discharge Planning Initial Assessment Updated by [id number]: Svitlana Paige on 07/02/19 1:58 pm * Is the patient Alert and Oriented? Yes * PCP Rohan Russell * Pharmacy [facility] in [place] * Preadmission Environment Home with Family * ADLs Independent * Equipment None * List name and contact numbers for known caregivers / representatives who currently or will assist patient after discharge: Kaylyn Fabian - mother - [phone] * Verbal permission to speak to the caregivers and representatives has been obtained from the patient. N/A * Community resources currently utilized Home Health * Please name any agencies selected above. [facility] * Additional services required to return to the preadmission environment? Yes * Can the patient safely return to the preadmission environment? Yes * Has this patient been hospitalized within the prior 30 days at any hospital? Yes Coverage Notice Reviewer: [id number] - Svitlana Paige Notice Issued Date-Time: 07/02/2019 14:03 Notice Type: Patient Choice Letter Notice Delivered To: Family Member Relationship to Patient: Mother Data Network Architect Name: Kaylyn Fabian Delivery Method: HAND - Hand Delivered Sharla Days: Prior Verbal Notification: Recipient Understood Notice: Yes Recipient Signature: Med Rec Note Co-signed by Attending: Coverage Notice Comment: JEREMY for [facility] Last DP export: 07/04/19 11:10 Patient Name: OLAMIDE FABIAN Page [id number] at 1120 All edits/amendments must be made on the electronic document DICTATION DATE: 07/08/191119 DEVELOPER RELATIONS MANAGER: KEKE 07/08/191119 RPT#: [id number] DC DATE: STATUS: ADM IN [facility] [address] [place] [address] END OF REPORT
[2019-07-08 12:38] VITALS: BP 103/65
[2019-07-08 13:04] LABS: HEMATOCRIT 24.1 % (42.0-54.0); HEMOGLOBIN 8.2 g/dL (13.5-17.5); LYMPHOCYTES 8.6 % (15-50); MCH 29.8 pg (26.0-34.0); MCV 87.6 fL (80.0-100.0); MEAN PLATELET VOLUME 8.8 fL (7.4-10.4); NEUTROPHILS 81.2 % (40-80); PLATELET COUNT 388 10x3/uL (130-400); RBC 2.75 10x6/uL (4.20-6.10); RDW 15.2 % (11.5-14.5); WBC 4.8 10x3/uL (4.8-10.8)
--- NOTE | 2019-07-08 14:28 | NUR ---
Nutrition follow-up: Diet: Regular PO intake fair to good Labs reviewed Wt: 290# RDN following.
--- NOTE | 2019-07-08 16:37 | MORECARE ---
CASE MANAGEMENT DISCHARGE SUMMARY PATIENT: OLAMIDE FABIAN UNIT: [id number] ADM DATE: 06/30/19 AGE: 33 : 87 SEX: M ROOM/BED: D.2234 AUTHOR: JEAN,DOC PHYSICIAN: REFERRING PHYSICIAN: LENNY JO MD DATE OF SERVICE: 07/08/19 Discharge Plan Patient Name: OLAMIDE FABIAN Facility: [facility]:[place] : 1985 Planned Disposition: Penitentiary Facility Anticipated Discharge Date: Discharge Date: Expected LOS: Initial Reviewer: [email or web address] Initial Review Date: 07/02/2019 Generated: 07/08/19 5:36 pm Comments DCP- Discharge Planning Updated by [email or web address]: vSitlana Paige on 07/08/19 3:[address] [facility] with [facility] called and states they will have auth for admission in the morning. I informed patient and his mother and they are both in agreement to discharge tomorrow. I spoke with Dr. Jo and he will write a discharge order for tomorrow. I spoke with nurse, Gianna, and she will be here in am. Plan to discharge tomorrow morning to a skilled bed at [facility]. DCP- Discharge Planning Updated by [email or web address]: Svitlana Paige on 07/08/19 10:[address] CM called Zully at [facility] and updated clinical faxed. Zully states she is about to go into morning meeting, then will return my call. I called patient's mother and update given. CM will continue to follow and assist with discharge planning/needs. DCP- Discharge Planning Updated by [email or web address]: Svitlana Paige on 07/04/19 11:[address] Called [facility] and spoke with Christy, updated clinical faxed per request. CM will continue to follow and assist with discharge planning/needs. DCP- Discharge Planning Updated by [id number]: Svitlana Paige on 07/03/19 11:[address] SHARAN approval received and faxed to [facility]. I spoke with Josephine with [facility] and informed her that I had sent a referral for SNF to [facility]. She states she will help with getting insurance authorization. CM will continue to follow and assist with discharge planning/needs. DCP- Discharge Planning Updated by [id number]: Svitlana Paige on 07/03/19 8:[address] Updated clinical faxed to [facility]. SHARAN sent to [facility] for approval to SNF. CM will continue to follow and assist with discharge planning/needs. DCP- Discharge Planning Updated by [id number]: Svitlana Paige on 07/02/19 1:[address] Patient Name: OLAMIDE FABIAN Admission Status: ER Accout number: [id number] Admission Date: 06-30-2019 : 1985 Admission Diagnosis: Attending: LENNY JO Current LOS: 2 Anticipated DC Date: Planned Disposition: Penitentiary Facility Primary Insurance: [employer] ADV Discharge Planning Comments: CM spoke with patient's mother on the phone to discuss discharge planning. She states she would like him to go to [facility] for [facility]. I informed her that he would need authorization from insurance for this, but I would put a referral in to [facility]. She does not have a second choice at this time. She asks if I can call her if [facility] cannot accept him. I faxed clinical and sent a message to Christy [facility] on referral. CM will need to do a SHARAN for approval. CM will continue to follow and assist with discharge planning/needs. Regional Merchandising Manager: Svitlana Paige DCPIA - Discharge Planning Initial Assessment Updated by [email or web address]: Svitlana Paige on 07/02/19 1:58 pm * Is the patient Alert and Oriented? Yes * PCP Rohan Russell * Pharmacy [facility] in [place] * Preadmission Environment Home with Family * ADLs Independent * Equipment None * List name and contact numbers for known caregivers / representatives who currently or will assist patient after discharge: Kaylyn Fabian - mother - [phone] * Verbal permission to speak to the caregivers and representatives has been obtained from the patient. N/A * Community resources currently utilized Home Health * Please name any agencies selected above. [facility] * Additional services required to return to the preadmission environment? Yes * Can the patient safely return to the preadmission environment? Yes * Has this patient been hospitalized within the prior 30 days at any hospital? Yes Coverage Notice Reviewer: [id number] - Svitlana Paige Notice Issued Date-Time: 07/02/2019 14:03 Notice Type: Patient Choice Letter Notice Delivered To: Family Member Relationship to Patient: Mother Services Manager Name: Kaylyn Fabian Delivery Method: HAND - Hand Delivered Sharla Days: Prior Verbal Notification: Recipient Understood Notice: Yes Recipient Signature: Med Rec Note Co-signed by Attending: Coverage Notice Comment: JEREMY for Agusto Rasheed Reviewer: [id number] Deidra Paige Notice Issued Date-Time: 07/08/2019 16:29 Notice Type: IM Discharge Notice Notice Delivered To: Patient Relationship to Patient: Self Services Manager Name: Delivery Method: HAND - Hand Delivered Sharla Days: Prior Verbal Notification: Recipient Understood Notice: Yes Recipient Signature: Yes Med Rec Note Co-signed by Attending: Coverage Notice Comment: IMM explained, signed, given, copy placed in MR Last DP export: 07/08/19 10:20 Patient Name: OLAMIDE FABIAN Page 10542 at 1637 All edits/amendments must be made on the electronic document DICTATION DATE: 07/08/191635 OFFICE TECHNOLOGY INSTRUCTOR: KEKE 07/08/19 163 RPT#: [id number] DC DATE: STATUS: ADM IN [facility] [address] [place] [address] END OF REPORT
--- NOTE | 2019-07-08 17:10 | NUR ---
OT NOTE: PT REQUIRED MAX A FOR RASHEED/DOFF SOCKS. PT REQUIRED SET UP FOR FACE HYGIENE. PT COMPLETED BED MOB AND ADL MOB WITH SBA/CGA. PT REQUIRED CUES FOR INCREASED SAFETY. PT IS COOPERATIVE AND PLEASANT. THANK YOU, EDISON DAVIS
--- NOTE | 2019-07-08 19:17 | NUR ---
LYING IN BED WITH EYES CLOSED, IV TO RIGHT WRIST IS PATENT AT THIS TIME. SHOWS NO S/S OF ANY ACUTE DISTRESS. WILL NOTE ANY CHANGE.
[2019-07-08 20:53] VITALS: BP 112/63
[2019-07-09 01:33] VITALS: BP 120/64
--- NOTE | 2019-07-09 02:43 | NUR ---
WILL NOT KEEP IV ACCESS, "PICKS" AT ANY IV SITE PULLING OUT CATHETERS, WILL CONTINUE TO ATTEMPT TO EDUCATE ON IMPORTANCE OF IV ACCESS, BUT WILL NOTE ANY CHANGE. UNABLE TO ADMINISTER IV MEDS AT THIS TIME.
--- NOTE | 2019-07-09 03:35 | NUR ---
I have reviewed this patient and I concur with the Shift Assessment completed by the Licensed Practical Nurse today this shift.
[2019-07-09 04:56] VITALS: BP 124/60
--- NOTE | 2019-07-09 06:50 | NUR ---
RESTING IN BED, EYES CLOSED. RESPIRATIONS EVEN AND UNLABORED. NO S/S OF ACUTE DISTRESS NOTED. NO C/O PAIN. CALL LIGHT IN REACH. WILL CONTINUE TO MONITOR.
[2019-07-09 09:09] VITALS: BP 103/61
[2019-07-09] MEDS ORDERED: GENTAMICIN PRE100 MG IV (09:10)
[2019-07-09] MEDS ORDERED: VANCOMYCIN 1 GM/1 G1 IV (09:10)
--- NOTE | 2019-07-09 09:39 | MORECARE ---
CASE MANAGEMENT DISCHARGE SUMMARY PATIENT: OLAMIDE FABIAN UNIT: [id number] ADM DATE: 06/30/19 AGE: 33 : 86 SEX: M ROOM/BED: D.2234 AUTHOR: AGUTSIN PENA PHYSICIAN: REFERRING PHYSICIAN: LENNY JO MD DATE OF SERVICE: 07/09/19 Discharge Plan Patient Name: OLAMIDE FABIAN Facility: [facility]:[place] : 1985 Planned Disposition: Prison Facility Anticipated Discharge Date: Discharge Date: Expected LOS: Initial Reviewer: [id number] Initial Review Date: 07/02/2019 Generated: 07/09/19 10:39 am Comments DCP- Discharge Planning Updated by [email or web address]: Svitlana Paige on 07/09/19 8:[address] Discharge orders received. He will be discharged to a skilled bed. I called Zulyl at [facility] and she states she is calling her trailer tank truck driver to be here at 10 am. His mother is aware of discharging today to [facility] and states she will see him after dialysis today. I left a message with patient's brother that he would be discharged to [facility] today and he states he will let his mother know. DCP- Discharge Planning Updated by [id number]: Svitlana Paige on 07/08/19 3:[address] Zully with [facility] called and states they will have auth for admission in the morning. I informed patient and his mother and they are both in agreement to discharge tomorrow. I spoke with Dr. Jo and he will write a discharge order for tomorrow. I spoke with nurse, Gianna, and she will be here in am. Plan to discharge tomorrow morning to a skilled bed at [facility]. DCP- Discharge Planning Updated by [email or web address]: Svitlana Paige on 07/08/19 10:[address] CM called Zully at [facility] and updated clinical faxed. Zully states she is about to go into morning meeting, then will return my call. I called patient's mother and update given. CM will continue to follow and assist with discharge planning/needs. DCP- Discharge Planning Updated by [id number]: Svitlana Paige on 07/04/19 11:[address] Called [facility] and spoke with Christy, updated clinical faxed per request. CM will continue to follow and assist with discharge planning/needs. DCP- Discharge Planning Updated by [email or web address]: Svitlana Royal on 07/03/19 11:[address] SHARAN approval received and faxed to [facility]. [facility] and informed her that I had sent a referral for SNF to [facility]. She states she will help with getting insurance authorization. CM will continue to follow and assist with discharge planning/needs. DCP- Discharge Planning Updated by [email or web address]: Svitlana Paige on 07/03/19 8:[address] Updated clinical faxed to [facility]. SHARAN sent to [facility] for approval to SNF. CM will continue to follow and assist with discharge planning/needs. DCP- Discharge Planning Updated by [email or web address]: Svitlana Paige on 07/02/19 1:[address] Patient Name: OLAMIDE FABIAN Admission Status: ER Accout number: [id number] Admission Date: 06-30-2019 : 1985 Admission Diagnosis: Attending: LENNY JO Current LOS: 2 Anticipated DC Date: Planned Disposition: Prison Facility Primary Insurance: [employer]ARE ADV Discharge Planning Comments: CM spoke with patient's mother on the phone to discuss discharge planning. She states she would like him to go to [facility] for wound care. I informed her that he would need authorization from insurance for this, but I would put a referral in to [facility]. She does not have a second choice at this time. She asks if I can call her if [facility] cannot accept him. I faxed clinical and sent a message to [facility] on referral. CM will need to do a SHARAN for approval. CM will continue to follow and assist with discharge planning/needs. Assistant Golf Coach: Svitlana Paige DCPIA - Discharge Planning Initial Assessment Updated by [id number]: Svitlana Paige on 07/02/19 1:58 pm * Is the patient Alert and Oriented? Yes * PCP Rohan Russell * Pharmacy [facility] in [place] * Preadmission Environment Home with Family * ADLs Independent * Equipment None * List name and contact numbers for known caregivers / representatives who currently or will assist patient after discharge: Kaylyn Fabian - mother - [phone] * Verbal permission to speak to the caregivers and representatives has been obtained from the patient. N/A * Community resources currently utilized Home Health * Please name any agencies selected above. [facility] * Additional services required to return to the preadmission environment? Yes * Can the patient safely return to the preadmission environment? Yes * Has this patient been hospitalized within the prior 30 days at any hospital? Yes Coverage Notice Reviewer: [id number] Deidra Paige Notice Issued Date-Time: 07/02/2019 14:03 Notice Type: Patient Choice Letter Notice Delivered To: Family Member Relationship to Patient: Mother Flexible Nanny Name: Kaylyn Fabian Delivery Method: HAND - Hand Delivered Sharla Days: Prior Verbal Notification: Recipient Understood Notice: Yes Recipient Signature: Med Rec Note Co-signed by Attending: Coverage Notice Comment: JEREMY for Agusto Rasheed Reviewer: [id number] Deidra Paige Notice Issued Date-Time: 07/08/2019 16:29 Notice Type: IM Discharge Notice Notice Delivered To: Patient Relationship to Patient: Self Flexible Nanny Name: Delivery Method: HAND - Hand Delivered Sharla Days: Prior Verbal Notification: Recipient Understood Notice: Yes Recipient Signature: Yes Med Rec Note Co-signed by Attending: Coverage Notice Comment: IMM explained, signed, given, copy placed in MR Last DP export: 07/08/19 3:37 Patient Name: OLAMIDE FABIAN Page [id number] at 0939 All edits/amendments must be made on the electronic document DICTATION DATE: 07/09/19937 FISH FARM LABORER: KEKE 07/09/19937 RPT#: [id number] DC DATE: STATUS: ADM IN [facility] [address] [place] [address] END OF REPORT
--- NOTE | 2019-07-09 09:44 | NUR ---
I have reviewed this patient and I concur with the Shift Assessment completed by the Licensed Practical Nurse today this shift.
--- NOTE | 2019-07-09 11:14 | NUR ---
DISCHARGED PATIENT TO [facility], VIA WHEELCHAIR WITH FACILITY STAFF. GAVE REPORT TO LUIGI. DENIES ANY FURTHER NEEDS. DISCHARGED WITH MIDLINE TO RIGHT UPPER ARM.
--- NOTE | 2019-07-09 14:20 | NUR ---
OT NOTE: PT COMPLETED ADL MOB TASKS SBA AND VERBAL CUES FOR INCREASED SAFETY. PT COMPLETED BUE AROM AX. PT COMPLETED HYGIENE TASKS WITH MIN A/CGA. THANK YOU, EDISON DAVIS
--- NOTE | 2019-07-10 16:51 | MORECARE ---
CASE MANAGEMENT DISCHARGE SUMMARY PATIENT: OLAMIDE FABIAN UNIT: [id number] ADM DATE: 06/30/19 AGE: 33 : [birth year] SEX: M ROOM/BED: D.2234 AUTHOR: AGUSTIN PENA PHYSICIAN: REFERRING PHYSICIAN: LENNY JO MD DATE OF SERVICE: 07/10/19 Discharge Plan Patient Name: OLAMIDE FABIAN Facility: [facility]:[place] : 1985 Planned Disposition: Alf Facility Anticipated Discharge Date: Discharge Date: 07/09/2019 Expected LOS: 0 Initial Reviewer: [id number] Initial Review Date: 07/02/2019 Generated: 07/10/19 5:51 pm Comments DCP- Discharge Planning Updated by [email or web address]: Svitlana Paige on 07/09/19 8:[address] Discharge orders received. He will be discharged to a skilled bed. I called Zully at [facility] and she states she is calling her log driver to be here at 10 am. His mother is aware of discharging today to [facility] and states she will see him after dialysis today. I left a message with patient's brother that he would be discharged to [facility] today and he states he will let his mother know. DCP- Discharge Planning Updated by [email or web address]: Svitlana Paige on 07/08/19 3:[address] Zully with [facility] called and states they will have auth for admission in the morning. I informed patient and his mother and they are both in agreement to discharge tomorrow. I spoke with Dr. Jo and he will write a discharge order for tomorrow. I spoke with nurse, Gianna, and she will be here in am. Plan to discharge tomorrow morning to a skilled bed at [facility]. DCP- Discharge Planning Updated by [id number]: Svitlana Paige on 07/08/19 10:[address] CM called Zully at [facility] and updated clinical faxed. Zully states she is about to go into morning meeting, then will return my call. I called patient's mother and update given. CM will continue to follow and assist with discharge planning/needs. DCP- Discharge Planning Updated by [email or web address]: Svitlana Paige on 07/04/19 11:[address] Called [facility] and spoke with Christy, updated clinical faxed per request. CM will continue to follow and assist with discharge planning/needs. DCP- Discharge Planning Updated by [email or web address]: Svitlana Royal on 07/03/19 11:[address] SHARAN approval received and faxed to [facility]. I spoke with Josephine with [facility] and informed her that I had sent a referral for SNF to [facility]. She states she will help with getting insurance authorization. CM will continue to follow and assist with discharge planning/needs. DCP- Discharge Planning Updated by [id number]: Svitlana Paige on 07/03/19 8:[address] Updated clinical faxed to [facility]. SHARAN sent to [facility] for approval to SNF. CM will continue to follow and assist with discharge planning/needs. DCP- Discharge Planning Updated by [email or web address]: Svtilana Paige on 07/02/19 1:[address] Patient Name: OLAMIDE FABIAN Admission Status: ER Accout number: [id number] Admission Date: 06-30-2019 : 1985 Admission Diagnosis: Attending: LENNY JO Current LOS: 2 Anticipated DC Date: Planned Disposition: Alf Facility Primary Insurance: [employer] MEDICARE ADV Discharge Planning Comments: CM spoke with patient's mother on the phone to discuss discharge planning. She states she would like him to go to [facility] for wound care. I informed her that he would need authorization from insurance for this, but I would put a referral in to [facility]. She does not have a second choice at this time. She asks if I can call her if [facility] cannot accept him. I faxed clinical and sent a message to [facility] on referral. CM will need to do a SHARAN for approval. CM will continue to follow and assist with discharge planning/needs. Jailkeeper: Svitlana Paige DCPIA - Discharge Planning Initial Assessment Updated by [email or web address]: Svitlana Paige on 07/02/19 1:58 pm * Is the patient Alert and Oriented? Yes * PCP Rohan Russell * Pharmacy [facility] in [place] * Preadmission Environment Home with Family * ADLs Independent * Equipment None * List name and contact numbers for known caregivers / representatives who currently or will assist patient after discharge: Kaylyn Fabian - mother - [phone] * Verbal permission to speak to the caregivers and representatives has been obtained from the patient. N/A * Community resources currently utilized Home Health * Please name any agencies selected above. [facility] * Additional services required to return to the preadmission environment? Yes * Can the patient safely return to the preadmission environment? Yes * Has this patient been hospitalized within the prior 30 days at any hospital? Yes Coverage Notice Reviewer: [id number] Paige Notice Issued Date-Time: 07/02/2019 14:03 Notice Type: Patient Choice Letter Notice Delivered To: Family Member Relationship to Patient: Mother Sweat Band Separator Name: Kaylyn Fabian Delivery Method: HAND - Hand Delivered Sharla Days: Prior Verbal Notification: Recipient Understood Notice: Yes Recipient Signature: Med Rec Note Co-signed by Attending: Coverage Notice Comment: JEREMY for Agusto Rasheed Reviewer: [email or web address] Deidra Paige Notice Issued Date-Time: 07/08/2019 16:29 Notice Type: IM Discharge Notice Notice Delivered To: Patient Relationship to Patient: Self Sweat Band Separator Name: Delivery Method: HAND - Hand Delivered Sharla Days: Prior Verbal Notification: Recipient Understood Notice: Yes Recipient Signature: Yes Med Rec Note Co-signed by Attending: Coverage Notice Comment: IMM explained, signed, given, copy placed in MR Last DP export: 07/09/19 8:39 Patient Name: OLAMIDE FABIAN Page 16870 at 1651 All edits/amendments must be made on the electronic document DICTATION DATE: 07/10/191650 MAINTENANCE WORKER: KEKE 07/10/191650 RPT#: [id number] DC DATE:07/09/19 STATUS: DIS IN [facility] [address] [place] [address] END OF REPORT
== END 2019-07-09 11:16 | DRG 920 ==
LOC: D.ER 15:19 → D.MS 16:54
PROVIDERS: Emergency Medicine; ADMIT Surgery; ATTEND Surgery
PROC: 05HC33Z Insertion of Infusion Device into Left Basilic Vein, Percutaneous Approach (ICD-10-PCS; principal; 2019-07-05)
PROC: 05HB33Z Insertion of Infusion Device into Right Basilic Vein, Percutaneous Approach (ICD-10-PCS; 2019-07-09)
DX: L76.22 Postprocedural hemorrhage of skin and subcutaneous tissue following other procedure (principal); C20 Malignant neoplasm of rectum; F84.0 Autistic disorder; T81.41XA Infection following a procedure, superficial incisional surgical site, initial encounter; I10 Essential (primary) hypertension; Z93.3 Colostomy status; B96.20 Unspecified Escherichia coli [E. coli] as the cause of diseases classified elsewhere; B95.2 Enterococcus as the cause of diseases classified elsewhere

== ENCOUNTER 2019-07-31 13:32 | Inpatient (IN) | payer MEDICARE, MEDICAID ==
[~2019-07-31] VITALS: Ht 185.4 cm; Wt 79.9 kg
[2019-07-31] VITALS (18 sets, daily range): BP systolic 92–123; BP diastolic 5–80; BMI 37.8
--- NOTE | ~2019-07-31 | DS ---
PATIENT:OLAMIDE SOTO :87 MEDICAL RECORD: [id number] DISCHARGE SUMMARY ADMISSION DATE: 07/31/19 DISCHARGE DATE: 08/12/19 DATE OF ADMISSION: 07/31/2019. DATE OF DISCHARGE: 08/12/2019. ADMISSION DIAGNOSES: 1. Rectal cancer status post abdominoperineal resection. 2. Sepsis with perineal abscess. 3. Open perineal wound. 4. Anemia, [id number]. 5. Acute drug-induced renal failure. DISCHARGE DIAGNOSES: 1. Rectal cancer status post abdominoperineal resection. 2. Sepsis with perineal abscess. 3. Open perineal wound. 4. Anemia, dhkth-[id number]. 5. Acute drug-induced renal failure. PROCEDURE: Perineal wound exploration with washout and debridement on 07/31/2019. REPORT OF HOSPITALIZATION: The patient was admitted in transfer from [facility] with concerns for sepsis. The patient had an APR about a month ago with perineal wound dehiscence and a pelvic infection. The patient continued to have large amounts of purulent drainage. He presented to the [facility] with temperatures of 100.7 and was initially placed on Levophed for decreased blood pressures. The patient had been on vancomycin and gentamicin for VSE and E. coli. They were in the pelvis and over that time, he developed acute renal failure, which did not require hemodialysis. When the patient was admitted to our facility, he had a white count which was normal at 9, hemoglobin of 7.3. The BUN was 21 and creatinine was 2. The patient was admitted to the floor and placed on IV antibiotics. The patient had significant improvement over the next few days. He began feeling better and the fevers and chills resolved. He was tolerating a diet and having continued perineal drainage. We attempted to place a wound VAC, but were never able to get it adhere and the patient was pulling at it causing it not to stick appropriately. We discontinued the wound VAC attempts despite being on vancomycin and Merrem and his condition overall improving. He continued to have a significant amount of drainage from his perineal wound. The patient had multiple packings performed at our facility and at the outside jail. There was concern on the CT scan that there may be some sort of foreign body present deep in the wound. I took the patient to the operating room and did a perineal wound exploration and found an old Kerlix gauze packed up in the top of the wound. Once we removed this gauze, the patient's purulent drainage significantly decreased and actually cleared out. The patient's condition continued to improve significantly. Eventually his BUN and creatinine normalized. His white count stayed down and his hemoglobin was stable with no signs of any bleeding. We eventually were able to work out arrangements for him to be [facility] from on IV antibiotics. A midline was placed for this and the patient was discharged. DISCHARGE SUMMARY REPORT [id number] OLAMIDE SOTO DISCHARGE INSTRUCTIONS: Return to clinic or call if any questions or concerns, fevers, chills, nausea, vomiting or worsening abdominal pain. ACTIVITIES: As tolerated. FOLLOWUP: In clinic with me in 1-2 weeks. DISCHARGE MEDICATIONS: 1. Vancomycin 1 gram q.12 hours. 2. Merrem 1 gram q.8 hours. 3. Gerber 10 p.r.n. 4. Protonix 40 mg daily. 5. MiraLax 17 grams b.i.d. 6. Ferrous sulfate 325 mg b.i.d. 7. Multivitamin Theragran daily. TRANSINT:[id number] Voice Confirmation ID: [id number] DOCUMENT ID: [id number] LENNY JO MD CC: [id number] DICTATION DATE: 08/27/19 1356 TRAVEL AGENT: 08/28/19 0022 DIS IN 08/12/19 [facility] [address] [place] [address]
[~2019-07-31 13:32] MED LIST changes: +GENTAMICIN PRE100 MG IV; +LEVAQUIN750 MG PO; +VANCOMYCIN 1 GM/1 G1 IV
--- NOTE | 2019-07-31 17:26 | NUR ---
RECEIVED PT VIA STRETCHER ACCOMPANIED BY EMS. ASSESSMENT COMPLETED PER FLOWSHEET, SEE FLOWSHEET FOR INFORMATION. AWAITING NEW ORDERS. VSS. NO NEEDS OR DISTRESS NOTED AT THIS TIME. WILL CONT TO MONITOR.
--- NOTE | 2019-07-31 19:15 | NUR ---
REPORT RECEIVED, ASSESSMENT COMPLETED, SEE FLOWSHEET. PT AAOX4, ON ROOM AIR. PIV IN LT AC INFUSIING, SEE FLOWSHEET.
--- NOTE | 2019-07-31 21:20 | NUR ---
PT PULLED OUT PIV IN RT AC. RESTARTED NEW PIV IN LEFT AC.
--- NOTE | 2019-07-31 23:00 | NUR ---
PT RESTING IN BED, NO ACUTE DISTRESS NOTED.
[2019-08-01] VITALS (24 sets, daily range): BP systolic 96–150; BP diastolic 56–88; Ht 185.4 cm; Wt 79.9 kg
--- NOTE | 2019-08-01 | NUR ---
COLOSTOMY LEAKING, COMPLETE COLOSTOMY CARE AND CHANGE DONE. STOMA PINK AND MOIST.
[2019-08-01] MEDS ORDERED: FERROUS SULFAT325 MG PO (00:40)
[2019-08-01] MEDS ORDERED: THERAGRAN M [BK1 TAB PO (00:40)
--- NOTE | 2019-08-01 01:00 | NUR ---
PT RESTING IN BED, NO ACUTE DISTRESS NOTED.
--- NOTE | 2019-08-01 03:00 | NUR ---
PT RESTING IN BED, VITALS STABLE, WILL CONTINUE TO MONITOR.
[2019-08-01 04:51] LABS: ANION GAP 13.3 mmol/L (8-16); CALCIUM 8.1 mg/dL (8.5-10.1); CARBON DIOXIDE 24.3 mmol/L (21.0-32.0); POTASSIUM - SERUM 3.6 mmol/L (3.5-5.1)
--- NOTE | 2019-08-01 05:00 | NUR ---
PT RESTING IN BED, PERIODS OF APNEA NOTED, WITH DESATS TO 87-89. ADJUSTED HEIGHT OF BED TO 30 DEGREES, SATS BACK UP TO 97.
[2019-08-01 05:18] LABS: BASOPHILS 0.2 % (0-2); EOSINOPHILS 2.5 % (0-7); HEMATOCRIT 23.5 % (42.0-54.0); IMMATURE GRANULOCYTES 0.2 % (0-5); LYMPHOCYTES 3.1 % (15-50); MCH 26.7 pg (26.0-34.0); MCHC 31.1 g/dL (31.0-37.0); MCV 86.1 fL (80.0-100.0); MEAN PLATELET VOLUME 8.6 fL (7.4-10.4); MONOCYTES 10.4 % (2-11); NEUTROPHILS 83.6 % (40-80); RBC 2.73 10x6/uL (4.20-6.10); RDW 16.7 % (11.5-14.5)
[2019-08-01 05:35] LABS: HEMOGLOBIN 7.3 g/dL (13.5-17.5); PLATELET COUNT 296 10x3/uL (130-400)
--- NOTE | 2019-08-01 07:00 | NUR ---
BEDSIDE REPORT RECEIVED. ASSESSMENT COMPLETED PER FLOWSHEET, SEE FLOWSHEET FOR INFORMATION. PT IN BED RESTING WITH EYES OPEN. NO NEEDS OR DISTRESS NOTED AT THIS TIME. VSS. PT REQUEST THAT HOB BE LOWERED, HOB AT 15 DEGREES. PT STATES THAT "THAT IS OKAY, THANK YOU." WILL CONT TO MONITOR.
--- NOTE | 2019-08-01 08:14 | NUR ---
ANSWERED PT CALL LIGHT, PT REQUEST LIGHTS OFF AND THE CURTAIN TO BE CLOSED. NEEDS MET. NO DISTRESS NOTED AT THIS TIME. VSS. WILL CONT TO MONITOR.
--- NOTE | 2019-08-01 09:00 | NUR ---
NEW ORDERS RECEIVED. NO NEEDS OR DISTRESS NOTED AT THIS TIME. VSS. WILL CONT TO MONITOR.
--- NOTE | 2019-08-01 11:00 | NUR ---
PT FAMILY AT BEDSIDE. NO NEEDS OR DISTRESS NOTED AT THIS TIME. VSS. WILL CONT TO MONITOR.
--- NOTE | 2019-08-01 11:38 | NUR ---
CHANGED DRESSING ORDERED. COPIOUS AMOUNTS OF PURULENT DRAINAGE NOTED. WOUND NURSE JUAN RN CALLED TO ASSIST WITH DRESSING CHANGE. PT C/O PAIN, PAIN MEDICATIONS GIVEN PER ORDERS. NO NEEDS OR DISTRESS NOTED AT THIS TIME. VSS. WILL CONT TO MONITOR.
--- NOTE | 2019-08-01 13:00 | NUR ---
PT FAMILY UPDATED. NO NEEDS OR DISTRESS NOTED AT THIS TIME. VSS. WILL CONT TO MONITOR.
--- NOTE | 2019-08-01 13:34 | NUR ---
Chronic open area on rectum. It is draining copious amounts of purulent drainage. Area was packed with 2" kerlix moistened with 1/4 strength dakins and covered with dry 4x4s and ABD pad.
--- NOTE | 2019-08-01 13:55 | NUR ---
AT BEDSIDE. WILL CONT TO MONITOR.
--- NOTE | 2019-08-01 15:00 | NUR ---
PT RESTING IN BED WITH EYES CLOSED. NO NEEDS OR DISTRESS NOTED AT THIS TIME. VSS. WILL CONT TO MONITOR. REASSESSMENT COMPLETED PER FLOWSHEET, SEE FLOWSHEET FOR INFORMATION.
--- NOTE | 2019-08-01 16:02 | NUR ---
BLOOD STARTED ON PT AT THIS TIME. VSS. WILL CONT TO MONITOR.
--- NOTE | 2019-08-01 17:00 | NUR ---
PT RECEIVING BLOOD, PT DENIES ANY DISCOMFORT OR NEEDS AT THIS MOMENT. VSS. WILL CONT TO MONITOR.
[2019-08-01 17:59] LABS: APPEARANCE CLEAR (CLEAR); BILIRUBIN NEGATIVE (NEGATIVE); COLOR YELLOW (YELLOW); GLUCOSE NEGATIVE (NEGATIVE); KETONE NEGATIVE (NEGATIVE); NITRITE NEGATIVE (NEGATIVE); PROTEIN NEGATIVE (NEGATIVE); UROBILINOGEN NORMAL (NORMAL)
--- NOTE | 2019-08-01 19:00 | NUR ---
Received patient resting in bed with eyes open watching TV, assessment completed per flowsheet. Patient has autism disorder with slow verbal responses, answers appropriately to simple questions/follows instructions. S1/S2 noted Sinus Tach on telemetry, rythmic and regular. Breathing is even/unlabored on room air with O2 sat 97%, lung sounds clear throughout. Abdomen is round/soft with bowel sounds active x3, colostomy secured with small liquid stool noted. Patient utilizes urinal jug with assist, scant yellow urine noted. Large dressing on coccyx/rectal area intact, purulent drainage noted by previous RN. All pulses palpable with cap refill < 3 sec, skin warm/dry. Denies pain or other needs at this time, see flowsheet for details. 1 unit PRBC completed at this time, ABX infusing and 2nd unit PRBC to infuse on completion. All VSS and will continue to monitor.
--- NOTE | 2019-08-01 21:00 | NUR ---
HS meds given without difficulty, patient resting in bed with eyes open. Denies pain or other needs at this time, all VSS and will continue to monitor.
--- NOTE | 2019-08-01 21:45 | NUR ---
2nd unit PRBC initiated, no immediate s/s of reaction at this time. Infusing at 125ml/hr via peripheral IV, patent with no signs of infiltration.
--- NOTE | 2019-08-01 23:15 | NUR ---
Reassessment completed per flowsheet, no changes noted from previous assessment. S1/S2 noted Sinus Tach on telemetry, rythmic and regular. Breathing is even/unlabored on room air with O2 sat 96%, lung sounds clear throughout. Colostomy site secured, small liquid stool noted. All pulses palpable with cap refill < 3 sec, skin warm/dry. Coccyx/Rectum dressing intact, no drainage noted. See flowsheet for details, all VSS and will continue to monitor.
[2019-08-02] VITALS (12 sets, daily range): BP systolic 112–137; BP diastolic 61–91
--- NOTE | 2019-08-02 01:00 | NUR ---
Patient sleeping in bed with eyes closed, no s/s of distress at this time. Repositioned for comfort, no further needs and will continue to monitor.
--- NOTE | 2019-08-02 03:10 | NUR ---
Reassessment completed per flowsheet, no changes noted from previous assessment. S1/S2 noted Sinus Tach on telemetry, rythmic and regular. Breathing is even/unlabored on room air with O2 sat 98%, lung sounds clear throughout. Colosomy site secured, small liquid stool. All pulses palpable with cap refill < 3 sec, skin warm/dry. See flowsheet for details, all VSS and will continue to montior.
[2019-08-02 03:40] LABS: BASOPHILS 0.1 % (0-2); EOSINOPHILS 3.5 % (0-7); IMMATURE GRANULOCYTES 0.5 % (0-5); LYMPHOCYTES 6.1 % (15-50); MCH 27.8 pg (26.0-34.0); MCHC 31.9 g/dL (31.0-37.0); MCV 87.2 fL (80.0-100.0); MEAN PLATELET VOLUME 8.6 fL (7.4-10.4); MONOCYTES 11.4 % (2-11); NEUTROPHILS 78.4 % (40-80); PLATELET COUNT 273 10x3/uL (130-400); RBC 3.27 10x6/uL (4.20-6.10); RDW 16.2 % (11.5-14.5); WBC 7.7 10x3/uL (4.8-10.8)
[2019-08-02 03:46] LABS: HEMATOCRIT 28.5 % (42.0-54.0); HEMOGLOBIN 9.1 g/dL (13.5-17.5)
[2019-08-02 04:03] LABS: ALBUMIN 1.8 g/dL (3.4-5.0); ANION GAP 13.2 mmol/L (8-16); BILIRUBIN - TOTAL 0.64 mg/dL (0.2-1.3); CARBON DIOXIDE 23.3 mmol/L (21.0-32.0); CREATININE - SERUM 1.5 mg/dL (0.6-1.3); POTASSIUM - SERUM 3.5 mmol/L (3.5-5.1); PROTEIN - SERUM 6.9 g/dL (6.4-8.2)
--- NOTE | 2019-08-02 05:00 | NUR ---
AM labs collected without difficulty, no s/s of distress at this time. All VSS and will continue to monitor.
--- NOTE | 2019-08-02 07:30 | NUR ---
REPORT RECIEVED. PATIENT SLEEPING. EASILY AROUSED. VSS. PATIENT TURNS HIMSELF. NO DISTRESS. STATES HE IS HUNGRY. LET HIM KNOW TRAYS WILL BE AROUND SOON. EMPTIED 500 ML OF URINE FROM URINAL. MORNING MEDS GIVEN PER NOV. ALL BELONGINGS WITHIN REACH. WILL CONTINUE TO MONITOR.
--- NOTE | 2019-08-02 08:40 | NUR ---
Nutrition follow-up: Diet: Regular PO intake ~50% of meals Labs reviewed Wt: 293# +BM RDN following.
--- NOTE | 2019-08-02 11:36 | NUR ---
changed perineal dressing per dr aquino request since wound care is not here today.
--- NOTE | 2019-08-02 12:17 | NUR ---
REPORT GIVEN TO YESSICA OLIVA
--- NOTE | 2019-08-02 12:42 | NUR ---
PT ARRIVES TO ROOM VIA WHEELCHAIR ESCORTED BY BRIM BLOCKER EPIFANIO. PT WITH DRESSING TO BUTTOCK WITH DARK RED DRAINAGE MODERATE AMOUNT. PT IS AAO X 4. PT DENIES PRESENCE OF N/V/PAIN AT THIS TIME. COLOSTOMY NOTED TO LEFT ABDOMEN. STOMA IS BRIGHT PINK. DARK BROWN STOOL NOTED TO COLLECTION BAG. PT AMBULATES TO RESTROOM UPON ARRIVAL WITH MINIMAL ASSIST TO URINATE. BED IS IN THE LOWEST POSITION. CALL LIGHT AND BEDSIDE TABLE ARE WITHIN REACH. SIDE RAILS X 2. WILL NOTIFY SHIFT NURSE OF ASSESSMENT AND PT ARRIVAL.
--- NOTE | 2019-08-02 13:32 | NUR ---
CALLED [facility] FOR CULTURE RESULTS OF WOUND. WILL BE FAXED OVER HERE.
--- NOTE | 2019-08-02 17:48 | NUR ---
FAMILY JUST LEFT. CL IN REACH. PATIENT EATING DINNER. MARY JANE LEMON [place]MEHUEVI AND COLA PROVIDED REQUESTED. WCTM
--- NOTE | 2019-08-02 20:00 | NUR ---
ALERT RESTING IN BED PLEASANT, DENIES PAIN OR NEEDS AT THIS TIME, SEE SHIFT ASSESSEMENT, CALL LIGHT IN REACH
[2019-08-03 01:20] VITALS: BP 127/69
[2019-08-03 05:52] VITALS: BP 124/76
[2019-08-03 06:27] LABS: BASOPHILS 0.3 % (0-2); EOSINOPHILS 2.4 % (0-7); HEMATOCRIT 27.4 % (42.0-54.0); HEMOGLOBIN 8.7 g/dL (13.5-17.5); IMMATURE GRANULOCYTES 0.1 % (0-5); LYMPHOCYTES 7.2 % (15-50); MCH 27.5 pg (26.0-34.0); MCHC 31.8 g/dL (31.0-37.0); MCV 86.7 fL (80.0-100.0); MONOCYTES 12.5 % (2-11); NEUTROPHILS 77.5 % (40-80); PLATELET COUNT 280 10x3/uL (130-400); RBC 3.16 10x6/uL (4.20-6.10); RDW 16.1 % (11.5-14.5)
[2019-08-03 06:45] LABS: ANION GAP 14.1 mmol/L (8-16); CALCIUM 8.5 mg/dL (8.5-10.1); CREATININE - SERUM 1.2 mg/dL (0.6-1.3); POTASSIUM - SERUM 3.1 mmol/L (3.5-5.1); VANCOMYCIN - TROUGH 26.2 ug/mL (10.0-20.0)
[2019-08-03 08:51] VITALS: BP 116/67
[2019-08-03 12:40] VITALS: BP 132/70
--- NOTE | 2019-08-03 16:55 | MORECARE ---
CASE MANAGEMENT DISCHARGE SUMMARY PATIENT: OLAMIDE SOTOSHOAIB UNIT: [id number] ADM DATE: 07/31/19 AGE: 33 : 87 SEX: M ROOM/BED: D.2204 AUTHOR: AGUSTIN PENA PHYSICIAN: REFERRING PHYSICIAN: LENNY JO MD DATE OF SERVICE: 08/03/19 Discharge Plan Patient Name: OLAMIDE SOTO [facility] [facility] 1985 Planned Disposition: Home Hlth Svc w Plan Readm Anticipated Discharge Date: Discharge Date: Expected LOS: Initial Reviewer: [email or web address] Initial Review Date: 08/03/2019 Generated: 08/03/19 5:54 pm DCPIA - Discharge Planning Initial Assessment Updated by [email or web address]: Edel Steele on 08/03/19 4:52 pm * Is the patient Alert and Oriented? Yes * Preadmission Environment Home with Family * ADLs Independent * Equipment None * List name and contact numbers for known caregivers / representatives who currently or will assist patient after discharge: FERMÍN ANTON, * Community resources currently utilized Home Health * Please name any agencies selected above. [facility] [place] * Additional services required to return to the preadmission environment? No * Can the patient safely return to the preadmission environment? Yes * Has this patient been hospitalized within the prior 30 days at any hospital? No Patient Name: OLAMIDE SOTO Page [id number] at 1655 All edits/amendments must be made on the electronic document DICTATION DATE: 08/03/191653 TOOTH INSPECTOR: KEKE 08/03/191653 RPT#: [id number] DC DATE: STATUS: ADM IN [facility] [address] [place] [address] END OF REPORT
[2019-08-03 17:29] VITALS: BP 148/85
--- NOTE | 2019-08-03 19:00 | NUR ---
Patient sleeping in bed. Arouses easily to voices. Patient states he is not having in pain. Encouraged patient to call with any needs. Bed rails x2. Call light and bedside table within reach.
[2019-08-03 20:56] VITALS: BP 130/69
[2019-08-04 00:36] VITALS: BP 113/64
[2019-08-04 05:21] VITALS: BP 132/66
[2019-08-04 09:19] VITALS: BP 117/79
[2019-08-04 12:20] VITALS: BP 109/67
[2019-08-04 17:04] VITALS: BP 109/68
--- NOTE | 2019-08-04 19:30 | NUR ---
PATIENT SLEEPING IN BED. AROUSES EASY TO VOICES. PATIENT HAS LEFT FA IV, NO REDNESS OR SWELLING. PATIENT STATES HE HAS NO NEEDS AT THIS TIME. BED RAILS X2. CALL LIGHT AND BEDSIDE TABLE WITHIN REACH.
[2019-08-04 20:00] VITALS: BP 122/80
[2019-08-05] VITALS: BP 124/71
[2019-08-05 04:00] VITALS: BP 125/71
[2019-08-05 08:21] VITALS: BP 112/70
--- NOTE | 2019-08-05 08:30 | NUR ---
patient cleaned up. bed wet. iv therapy found in floor. cl in reach. wctm
--- NOTE | 2019-08-05 10:00 | NUR ---
iv fluids and tubing has been changed out. New iv sited by Angelica Taylor RN in right hand. wrapped with kerlex to help keep from pulling it out.
[2019-08-05 12:12] VITALS: BP 113/75
--- NOTE | 2019-08-05 12:16 | NUR ---
family in room. cl in reach. no further needs at this time. wctm
--- NOTE | 2019-08-05 14:49 | NUR ---
Wound vac dressing applied to chronic wound located in anal area. Measurements are: 2cm x 1.5cm x 11cm. Moderate amount of purulent landaverde drainage is noted and it does have an odor. Applied 1 white sponge in the depth of the wound and pigtailed it with black sponge over to the the right buttock for comfort. Settings: -125mmhg low continuous. Pt tolerated well.
--- NOTE | 2019-08-05 16:08 | NUR ---
RESP DURING SLEEP HAVE APNEIC PERIODS.
[2019-08-05 16:57] VITALS: BP 99/52
--- NOTE | 2019-08-05 17:30 | NUR ---
I RESPONDED TO THE WOUND VAC BEEPING. WOUND VAC NOT ATTACHED TO PATIENT AT THIS TIME. NOTIFIED WOUND CARE. GOING BACK TO WET TO DRY DRESSING CHANGES.
[2019-08-05 20:00] VITALS: BP 114/71
--- NOTE | 2019-08-05 20:35 | NUR ---
LYING IN BED. ALERT AND ORIENTED TO SELF, PLACE AND TIME, CONFUSED TO SITUATION. IV LEAKING IN RT HAND. 22 G INSERTED IN LT HAND X1 ATTEMPT. NS @ 30 MLHR INFUSING. RESP EVEN AND NONLABORED. COLOSTOMY NOTED TO LLQ WITH THICK DK GREENISH/BROWN STOOL. REPORTED BY OFFGOING STAFF THAT PT HAD PULLED WOUND VAC OFF TODAY AND WAS TO HAVE W/D DRESSING TO PERINEUM. ABD IS OBESE. INSTRUCTED PT NOT TO PULL DSRGS OFF OR PULL ON IV LINES. HE VERBALIZED UNDERSTANDING BUT IS UNCOOPERATIVE. PT IS AUTISTIC. BED ALARM ON FOR PT SAFETY.
--- NOTE | 2019-08-06 02:22 | NUR ---
LYING ON LT SIDE IN BED WITH EYES CLOSED. RESP NONLABORED. NO DISTRESS. CL IN REACH. BED ALARM IN USE.
[2019-08-06 04:00] VITALS: BP 116/71
[2019-08-06 04:44] LABS: BASOPHILS 0.1 % (0-2); CALC OSMOLALITY 282 mosm/kg (275-300); CALCIUM 8.3 mg/dL (8.5-10.1); CHLORIDE - SERUM 106 mmol/L (98-107); CREATININE - SERUM 1.1 mg/dL (0.6-1.3); EOSINOPHILS 1.9 % (0-7); GLUCOSE 110 mg/dL (74-106); HEMATOCRIT 30.4 % (42.0-54.0); HEMOGLOBIN 9.3 g/dL (13.5-17.5); IMMATURE GRANULOCYTES 0.3 % (0-5); LYMPHOCYTES 8.5 % (15-50); MCH 27.4 pg (26.0-34.0); MCHC 30.6 g/dL (31.0-37.0); MCV 89.4 fL (80.0-100.0); MONOCYTES 8.7 % (2-11); NEUTROPHILS 80.5 % (40-80); POTASSIUM - SERUM 3.1 mmol/L (3.5-5.1); RDW 16.3 % (11.5-14.5); SODIUM 142 mmol/L (136-145); UREA NITROGEN 11 mg/dL (7-18); WBC 6.7 10x3/uL (4.8-10.8); eGFR NON AFRICAN AMERICAN 82 mL/min (90-120)
[2019-08-06 04:50] LABS: PLATELET COUNT 359 10x3/uL (130-400)
--- NOTE | 2019-08-06 07:46 | NUR ---
AWAKE AND ALERT. ORIENTED X3. NO C/O AT THIS TIME. LUNGS ARE CLEAR BILATERALLY, NO COUGH NOTED. SKIN IS INTACT WITHOUT REDNESS EXCEPT WOUND TO COCCYX AREA WHICH HAD A DRY INTACT DRESSING IN PLACE. IV TO LEFT HAND IS PATENT WITHOUT REDNESS AT INSERTION SITE. DENIES NEEDS.
[2019-08-06 08:19] VITALS: BP 132/79
--- NOTE | 2019-08-06 10:00 | NUR ---
DR. JO HERE AND CHANGED DRESSING TO COCCX PER SELF. PATIENT TOLERATED IWTHOUT C/O PAIN OR DISCOMFORT. OSTOMY TO LEFT LOWER ABDOMEN IS PATENT, STOMA IS PINK AND VIABLE.
--- NOTE | 2019-08-06 11:53 | NUR ---
WAS UP TO CHAIR WITH NURSING STUDENTS. WAS ABLE TO BEAR HIS OWN WEIGHT.
--- NOTE | 2019-08-06 12:30 | NUR ---
LUNCH SERVED IN ROOM. FEEDS SELF WITHOUT HELP. DENIES NEEDS.
[2019-08-06 12:37] VITALS: BP 112/70
--- NOTE | 2019-08-06 12:54 | NUR ---
Nutrition follow-up: Diet: Regular PO intake ~25% of last 3 meals Labs reviewed Wt: 276# Pt is not meeting estimated energy needs with po intake at this time. RDN will order Boost with meals Following.
--- NOTE | 2019-08-06 15:09 | NUR ---
RESTING QUIETLY IN BED. NO C/O VOICED. DENIES NEEDS.
[2019-08-06 16:14] VITALS: BP 111/62
--- NOTE | 2019-08-06 18:35 | NUR ---
ATE ALL OF SUPPER. DENIES NEEDS. NO CHANGES NOTED.
--- NOTE | 2019-08-06 19:30 | NUR ---
LYING IN BED. ALERT AND ORIENTED TO SELF, PLACE AND TIME. CONFUSED TO SITUATION. POOR ATTENTION SPAN. UNCOOPERATIVE AT TIMES WITH STAFF REQUESTS. PT LIKE TO PULL ON IV LINES AND DSRGS. DRSG NOTED TO PERINEUM. DENIES PAIN. COLOSTOMY NOTED TO LLQ WITH SMALL AMOUNT OF BROWN STOOL NOTED IN BAG. SALINE LOCK NOTED TO LT HAND. NO DISRESS. SR ELEVATED X2. CL IN REACH.
[2019-08-06 20:25] VITALS: BP 123/73
--- NOTE | 2019-08-06 22:13 | NUR ---
LYING IN BED WITH EYES CLOSED. RESP EVEN AND NONLABORED. NO DISTRESS. CL IN REACH.
[2019-08-07 00:20] VITALS: BP 113/63
[2019-08-07 03:56] VITALS: BP 124/60
--- NOTE | 2019-08-07 03:57 | NUR ---
PULLED IV OUT. IV RESTARTED IN RT WRIST AFTER ATTEMPT X4 WITH 22G. PT SANTOS WELL. INSTRUCTED NOT TO PULL ON IV.
[2019-08-07 05:38] LABS: BASOPHILS 0.3 % (0-2); EOSINOPHILS 1.3 % (0-7); HEMATOCRIT 28.6 % (42.0-54.0); HEMOGLOBIN 8.7 g/dL (13.5-17.5); IMMATURE GRANULOCYTES 0.3 % (0-5); LYMPHOCYTES 7.3 % (15-50); MCH 27.3 pg (26.0-34.0); MCHC 30.4 g/dL (31.0-37.0); MCV 89.7 fL (80.0-100.0); MEAN PLATELET VOLUME 9.4 fL (7.4-10.4); MONOCYTES 12.1 % (2-11); NEUTROPHILS 78.7 % (40-80); PLATELET COUNT 344 10x3/uL (130-400); RBC 3.19 10x6/uL (4.20-6.10); RDW 16.5 % (11.5-14.5); WBC 7.4 10x3/uL (4.8-10.8)
[2019-08-07 06:16] LABS: CALC OSMOLALITY 283 mosm/kg (275-300); CALCIUM 8.5 mg/dL (8.5-10.1); CARBON DIOXIDE 25.4 mmol/L (21.0-32.0); CHLORIDE - SERUM 107 mmol/L (98-107); GLUCOSE 104 mg/dL (74-106); POTASSIUM - SERUM 3.3 mmol/L (3.5-5.1); SODIUM 143 mmol/L (136-145); UREA NITROGEN 11 mg/dL (7-18); eGFR NON AFRICAN AMERICAN > 90 mL/min (90-120)
--- NOTE | 2019-08-07 07:39 | NUR ---
AWAKE AND ALERT. ORIENTED X3. NO C/O THIS AM. LUNGS ARE CLEAR BILATERALLY, NO COUGH NOTED. SKIN IS INTACT WITHOUT REDNESS EXCEPT WOUND TO COCCYX AREA WHICH HAS A DRY INTACT DRESSING IN PLACE. COLOSTOMY PATENT WITH SCANT DARK OUTPUT, SOLID. STOMA PINK AND VIABLE. SL TO RIGHT HAND IS PATENT WTIHOUT REDNESS AT INSERTION SITE. DENIES NEEDS.
[2019-08-07 08:39] VITALS: BP 125/72
--- NOTE | 2019-08-07 09:00 | NUR ---
ATE ALL OF BREAKFAST. TOOK AM MEDS WITHOUT DIFFICULTY. DENIES NEEDS.
[2019-08-07 12:57] VITALS: BP 118/71
--- NOTE | 2019-08-07 12:58 | MORECARE ---
CASE MANAGEMENT DISCHARGE SUMMARY [id number] ADM DATE: 07/31/19 AGE: 33 : 87 SEX: M ROOM/BED: D.2204 AUTHOR: JEANDOC PHYSICIAN: REFERRING PHYSICIAN: LENNY JO MD DATE OF SERVICE: 08/07/19 Discharge Plan Patient Name: OLAMIDE SOTO Facility: [facility]:[place] : 1985 Planned Disposition: Home Hlth Svc w Plan Readm Anticipated Discharge Date: Discharge Date: Expected LOS: Initial Reviewer: [email or web address] Initial Review Date: 08/03/2019 Generated: 08/07/19 1:58 pm Comments DCP- Discharge Planning Updated by [email or web address]: Izzy Mercedes on 08/07/19 11:[address] spoke with Zully at [facility] about anticipated DC tomorrow, will send clinical updates to her. He will need a midline/picc for IV abx at [facility]. CM to follow and assist with DC planning DCP- Discharge Planning Updated by [id number]: Edel Steele on 08/03/19 3:[address] Patient Name: OLAMIDE SOTO Admission Status: Elective Accout number: [id number] Admission Date: 07-31-2019 : 1985 Admission Diagnosis:SEPSIS, UNSPECIFIED ORGANISM Attending: LENNY JO Current LOS: 3 Anticipated DC Date: Planned Disposition: Home Hlth Svc w Plan Readm Primary Insurance: [employer] MEDICARE ADV Discharge Planning Comments: CM MET WITH PATIENT TO DISCUSS DC PLANNING/NEEDS AFTER OBTAINING VERBAL CONSENT. PATIENT PLANS TO DC TO HOME WITH MOM AND RESUME HH WITH A COMPANY CALLED [facility]. MAY NEED TO TALK TO HIS MOM TO VERIFY THE NAME OF THE HH COMPANY. CM WILL FOLLOW AND ASSIST NEEDED. Electrician Ship: Edel Steele DCPIA - Discharge Planning Initial Assessment Updated by [id number]: Edel Steele on 08/03/19 4:52 pm * Is the patient Alert and Oriented? Yes * Preadmission Environment Home with Family * ADLs Independent * Equipment None * List name and contact numbers for known caregivers / representatives who currently or will assist patient after discharge: FERMÍN ANTON, * Community resources currently utilized Home Health * Please name any agencies selected above. [facility] [place] * Additional services required to return to the preadmission environment? No * Can the patient safely return to the preadmission environment? Yes * Has this patient been hospitalized within the prior 30 days at any hospital? No Last DP export: 08/03/19 3:55 p Patient Name: OLAMIDE SOTO Page [id number] at 1258 All edits/amendments must be made on the electronic document DICTATION DATE: 08/07/19 125 PAPER INSERTER: KEKE 08/07/19 1258 RPT#: [id number] DC DATE: STATUS: ADM IN [facility] [address] [place] [address] END OF REPORT
--- NOTE | 2019-08-07 13:05 | MORECARE ---
CASE MANAGEMENT DISCHARGE SUMMARY [facility] UN[facility]: [id number] ADM DATE: 07/31/19 AGE: 33 : 87 SEX: M ROOM/BED: D.2204 AUTHOR: JEANDOC PHYSICIAN: REFERRING PHYSICIAN: LENNY JO MD DATE OF SERVICE: 08/07/19 Discharge Plan Patient Name: OLAMIDE SOTO Facility: [facility]:[place] : 1985 Planned Disposition: Home Hlth Svc w Plan Readm Anticipated Discharge Date: Discharge Date: Expected LOS: Initial Reviewer: [email or web address] Initial Review Date: 08/03/2019 Generated: 08/07/19 2:05 pm Comments DCP- Discharge Planning Updated by [email or web address]: Izzy Mercedes on 08/07/19 11:[address] spoke with Zully at [facility] about anticipated DC tomorrow, will send clinical updates to her. He will need a midline/picc for IV abx at [facility]. CM to follow and assist with DC planning DCP- Discharge Planning Updated by [email or web address]: Edel Steele on 08/03/19 3:[address] Patient Name: OLAMIDE SOTO Admission Status: Elective Accout number: [id number] Admission Date: 07-31-2019 : 1985 Admission Diagnosis:SEPSIS, UNSPECIFIED ORGANISM Attending: LENNY JO Current LOS: 3 Anticipated DC Date: Planned Disposition: Home Hlth Svc w Plan Readm Primary Insurance: [employer] MEDICARE ADV Discharge Planning Comments: CM MET WITH PATIENT TO DISCUSS DC PLANNING/NEEDS AFTER OBTAINING VERBAL CONSENT. PATIENT PLANS TO DC TO HOME WITH MOM AND RESUME HH WITH A COMPANY CALLED [facility] [employer]. MAY NEED TO TALK TO HIS MOM TO VERIFY THE NAME OF THE HH COMPANY. CM WILL FOLLOW AND ASSIST NEEDED. Land Management Forester: Edel Steele DCPIA - Discharge Planning Initial Assessment Updated by [email or web address]: Edel Steele on 08/03/19 4:52 pm * Is the patient Alert and Oriented? Yes * Preadmission Environment Home with Family * ADLs Independent * Equipment None * List name and contact numbers for known caregivers / representatives who currently or will assist patient after discharge: FERMÍN ANTON, * Community resources currently utilized Home Health * Please name any agencies selected above. [facility] [place] * Additional services required to return to the preadmission environment? No * Can the patient safely return to the preadmission environment? Yes * Has this patient been hospitalized within the prior 30 days at any hospital? No External Providers External Provider: Critical access hospital Next Contact Date: Service Request Date: Service Type: Resolution: Reviewer: Comments: Last DP export: 08/07/19 11:58 Patient Name: OLAMIDE SOTO Page [id number] at 1305 All edits/amendments must be made on the electronic document DICTATION DATE: 08/07/19 1305 MOBILE MANAGER: KEKE 08/07/19 1305 RPT#: [id number] DC DATE: STATUS: ADM IN [facility] [address] [place] [address] END OF REPORT
--- NOTE | 2019-08-07 15:20 | NUR ---
OFF UNIT VIA BED FOR CT.
[2019-08-07 17:27] VITALS: BP 118/77
[2019-08-07 20:00] VITALS: BP 106/77
--- NOTE | 2019-08-07 20:00 | NUR ---
RESTING IN BED WITH EYES CLOSED, RESP UNLABORED, AROUSED EASILY SEE SHIFT ASSESSMENT, CALL LIGHT IN REACH
[2019-08-08] VITALS (11 sets, daily range): BP systolic 111–188; BP diastolic 61–92
[2019-08-08 05:12] LABS: CALC OSMOLALITY 288 mosm/kg (275-300); CALCIUM 8.5 mg/dL (8.5-10.1); CARBON DIOXIDE 27.1 mmol/L (21.0-32.0); CHLORIDE - SERUM 108 mmol/L (98-107); CREATININE - SERUM 0.9 mg/dL (0.6-1.3); GLUCOSE 88 mg/dL (74-106); POTASSIUM - SERUM 3.7 mmol/L (3.5-5.1); SODIUM 146 mmol/L (136-145); UREA NITROGEN 10 mg/dL (7-18); eGFR NON AFRICAN AMERICAN > 90 mL/min (90-120)
[2019-08-08 05:38] LABS: HEMATOCRIT 30.9 % (42.0-54.0); HEMOGLOBIN 9.8 g/dL (13.5-17.5); MCH 28.2 pg (26.0-34.0); MCHC 31.7 g/dL (31.0-37.0); MEAN PLATELET VOLUME 10.3 fL (7.4-10.4); PLATELET COUNT 347 10x3/uL (130-400); RBC 3.47 10x6/uL (4.20-6.10); RDW 16.8 % (11.5-14.5); WBC 6.9 10x3/uL (4.8-10.8)
--- NOTE | 2019-08-08 08:19 | NUR ---
RN ACUTE DIALYSIS IN WITH THIS PATIENT. PATIENT INCONT OF BOWEL. RN ACUTE DIALYSIS GIVING GERBER CARE. PATIENT IS CONFUSED. ABLE TO VOICE BASIC NEEDS. VOICES NO NEEDS AT THIS TIME. BED ALARM ON
[2019-08-08 09:55] LABS: ANISOCYTOSIS OCC; EOSINOPHILS 7 % (0-7); LYMPHOCYTES 11 % (15-50); MONOCYTES 5 % (2-11); NEUTROPHILS 73 % (40-80); PLATELET ESTIMATE NORMAL
--- NOTE | 2019-08-08 10:22 | NUR ---
PATIENT TRANSFERED DOWN TO PREOPED FOR SURGERY. TRANSFERED DOWN TO SURGERY FOR PERINEAL WOULD DEBRIDEMENT
--- NOTE | 2019-08-08 12:18 | NUR ---
PT SHAKES HEAD "NO" WHEN ASKED "ARE YOU HURTING?"
--- NOTE | 2019-08-08 12:52 | NUR ---
PATIENT RETURNED FROM SURGERY. STAPLE SITTING UP IN BED EATTING LUNCH
--- NOTE | 2019-08-08 15:02 | NUR ---
I have reviewed this patient and I concur with the Shift Assessment completed by the Licensed Practical Nurse today this shift.
--- NOTE | 2019-08-08 20:30 | NUR ---
A&O X 4, DENIES PAIN/DISCOMFORT. COLOSTOMY BAG FULL WITH HARD, GREEN STOOL. BAG REMOVED, AREA CLEANSED AND NEW BAG APPLIED. STOMA APPEARS PINK AND MOIST. PT DENIES FURTHER NEEDS, WILL CONTINUE TO MONITOR.
[2019-08-09 01:03] VITALS: BP 134/74
[2019-08-09 05:16] VITALS: BP 114/69
[2019-08-09 08:27] VITALS: BP 121/71
--- NOTE | 2019-08-09 09:10 | NUR ---
Nutrition follow-up: Chart reviewed. Diet: regular with po intake ~50-75% average of last 9 meals Labs reviewed Wt: 285# Pt is now assessed with severe malnutrition of chronic illness R/T rectal cancer AEB: 1. ~15% weight loss over the last 7 months 336# November 2018 - now 285# 2. < 75% intake of estimated energy needs for > 1 month Pts po intake is slowly improving at this time. Will offer nutritional supplements and honor food preferences. RDN following.
--- NOTE | 2019-08-09 11:36 | MORECARE ---
CASE MANAGEMENT DISCHARGE SUMMARY PATIENT: OLAMIDE SOTO [facility] [place] UNIT: [id number] ADM DATE: 07/31/19 AGE: 33 : 87 SEX: M ROOM/BED: D.2204 AUTHOR: AGUSTIN PENA PHYSICIAN: REFERRING PHYSICIAN: LENNY JO MD DATE OF SERVICE: 08/09/19 Discharge Plan Patient Name: OLAMIDE SOTO Facility: [facility]:[place] : 1985 Planned Disposition: Penitentiary Facility Anticipated Discharge Date: Discharge Date: Expected LOS: Initial Reviewer: [email or web address] Initial Review Date: 08/03/2019 Generated: 08/09/19 12:36 pm Comments DCP- Discharge Planning Updated by [email or web address]: Izzy Mercedes on 08/07/19 11:[address] spoke with Zully at [facility] about anticipated DC tomorrow, will send clinical updates to her. He will need a midline/picc for IV abx at [facility]. CM to follow and assist with DC planning DCP- Discharge Planning Updated by [email or web address]: Edel Steele on 08/03/19 3:[address] Patient Name: OLAMIDE SOTO Admission Status: Elective Accout number: [id number] Admission Date: 07-31-2019 : 1985 Admission Diagnosis:SEPSIS, UNSPECIFIED ORGANISM Attending: LENNY JO Current LOS: 3 Anticipated DC Date: Planned Disposition: Home Hlth Svc w Plan Readm Primary Insurance: [employer] MEDICARE ADV Discharge Planning Comments: CM MET WITH PATIENT TO DISCUSS DC PLANNING/NEEDS AFTER OBTAINING VERBAL CONSENT. PATIENT PLANS TO DC TO HOME WITH MOM AND RESUME HH WITH A COMPANY CALLED [employer]. MAY NEED TO TALK TO HIS MOM TO VERIFY THE NAME OF THE HH COMPANY. CM WILL FOLLOW AND ASSIST NEEDED. Manufacturing Specialist: Edel Steele DCPIA - Discharge Planning Initial Assessment Updated by [email or web address]: Edel Stelee on 08/03/19 4:52 pm * Is the patient Alert and Oriented? Yes * Preadmission Environment Home with Family * ADLs Independent * Equipment None * List name and contact numbers for known caregivers / representatives who currently or will assist patient after discharge: FERMÍN ANTON, * Community resources currently utilized Home Health * Please name any agencies selected above. [facility] [place] * Additional services required to return to the preadmission environment? No * Can the patient safely return to the preadmission environment? Yes * Has this patient been hospitalized within the prior 30 days at any hospital? No Last DP export: 08/07/19 12:05 Patient Name: OLAMIDE SOTO Page [phone] at 1136 All edits/amendments must be made on the electronic document DICTATION DATE: 08/09/19 1136 AN[place]AL [place] CODE ENFORCEMENT OFFICER: KEKE 08/09/19 1136 RPT#: [id number] DC DATE: STATUS: ADM IN [facility] [address] [place] [address] END OF REPORT
--- NOTE | 2019-08-09 11:36 | OP ---
PATIENT NAME: OLAMIDE SOTO MEDICAL RECORD: [id number] :[birth year] LOCATION:D.MS [id number] ADMISSION DATE:07/31/19 SURGEON: LENNY JO MD DATE OF OPERATION: 08/08/2019 PREOPERATIVE DIAGNOSES: 1. Open perineal wound/abscess. 2. Rectal cancer status post abdominoperineal resection. 3. Autism with developmental delay. POSTOPERATIVE DIAGNOSES: 1. Open perineal wound/abscess. 2. Rectal cancer status post abdominoperineal resection. 3. Autism with developmental delay. PROCEDURE: Perineal wound debridement with irrigation. SURGEON: Lenny Jo MD REPORT OF PROCEDURE: The patient was placed in the lithotomy position. The perineal wound was inspected and noted to be 5 cm long x 4 cm wide and the depth I was not able to tell because of how deep this actually went. On the very superior aspect of the wound, I could see what appeared to be a foreign body. As I grasped this, it was noted to be a long piece of Kerlix. This portion of Kerlix was removed from the wound and as we inspected the remainder of the wound, we did not find any other foreign bodies present. The wound was then irrigated out thoroughly with peroxide and saline solution. We could see the wound edges and they all appeared to be granulating in nicely with no sign of any fistulous tracts. There was no bone exposed that we can visualize. The abdomen itself appeared to be from the pelvis. At this point, I did not see any evidence of any masses or lesions as well. We packed the wound with a 4-inch Kerlix dipped in peroxide and then covered it with 4 x 4s and an ABD pad. COMPLICATIONS: None. CONDITION: Stable. ANESTHESIA: General endotracheal. BLOOD LOSS: Minimal. TRANSINT:[id number] Voice Confirmation ID: [id number] DOCUMENT ID: [id number] LENNY JO MD at 1136 CC: [id number] DICTATION DATE: 08/08/19 1146 COMMERCIAL SINGER: 08/08/19 1208 ADM IN [facility] [id number] [place] [address]
--- NOTE | 2019-08-09 11:59 | MORECARE ---
CASE MANAGEMENT DISCHARGE SUMMARY PATIENT: OLAMIDE SOTO [facility] UNIT: [id number] ADM DATE: 07/31/19 AGE: 33 : 87 SEX: M ROOM/BED: D.2204 AUTHOR: AGUSTIN PENA PHYSICIAN: REFERRING PHYSICIAN: LENNY JO MD DATE OF SERVICE: 08/09/19 Discharge Plan Patient Name: OLAMIDE SOTO Facility: [facility]:[place] : 1985 Planned Disposition: Fci Facility Anticipated Discharge Date: Discharge Date: Expected LOS: Initial Reviewer: [email or web address] Initial Review Date: 08/03/2019 Generated: 08/09/19 12:59 pm Comments DCP- Discharge Planning Updated by [id number]: Izzy Mercedes on 08/07/19 11:[address] spoke with Zully at [facility] about anticipated DC tomorrow, will send clinical updates to her. He will need a midline/picc for IV abx at [facility]. CM to follow and assist with DC planning DCP- Discharge Planning Updated by [email or web address]: Edel Steele on 08/03/19 3:[address] Patient Name: OLAMIDE SOTO Admission Status: Elective Accout number: [id number] Admission Date: 07-31-2019 : 1985 Admission Diagnosis:SEPSIS, UNSPECIFIED ORGANISM Attending: LENNY JO Current LOS: 3 Anticipated DC Date: Planned Disposition: Home Hlth Svc w Plan Readm Primary Insurance: [employer] ADV Discharge Planning Comments: CM MET WITH PATIENT TO DISCUSS DC PLANNING/NEEDS AFTER OBTAINING VERBAL CONSENT. PATIENT PLANS TO DC TO HOME WITH MOM AND RESUME HH WITH A COMPANY CALLED [facility]. MAY NEED TO TALK TO HIS MOM TO VERIFY THE NAME OF THE HH COMPANY. CM WILL FOLLOW AND ASSIST NEEDED. Emergency Vehicle Technician: Edel Steele DCPIA - Discharge Planning Initial Assessment Updated by [id number]: Edel Steele on 08/03/19 4:52 pm * Is the patient Alert and Oriented? Yes * Preadmission Environment Home with Family * ADLs Independent * Equipment None * List name and contact numbers for known caregivers / representatives who currently or will assist patient after discharge: FERMÍN ANTON, * Community resources currently utilized Home Health * Please name any agencies selected above. [facility] [place] * Additional services required to return to the preadmission environment? No * Can the patient safely return to the preadmission environment? Yes * Has this patient been hospitalized within the prior 30 days at any hospital? No Last DP export: 08/09/19 10:36 Patient Name: OLAMIDE SOTO Page [id number] at 1159 All edits/amendments must be made on the electronic document DICTATION DATE: 08/09/19 115 WHOLESALE MANAGER: KEKE 08/09/19 115 RPT#: [id number] DC DATE: STATUS: ADM IN [facility] [address] [place] [address] END OF REPORT
[2019-08-09 12:47] VITALS: BP 134/71
--- NOTE | 2019-08-09 14:35 | MORECARE ---
CASE MANAGEMENT DISCHARGE SUMMARY PATIENT: OLAMIDE SOTOAK UNIT: [id number] ADM DATE: 07/31/19 AGE: 33 : 87 SEX: M ROOM/BED: D.2204 AUTHOR: AGUSTIN PENA PHYSICIAN: REFERRING PHYSICIAN: LENNY JO MD DATE OF SERVICE: 08/09/19 Discharge Plan Patient Name: OLAMIDE SOTO Facility: [facility]:[place] : 1985 Planned Disposition: Fdc Facility Anticipated Discharge Date: Discharge Date: Expected LOS: Initial Reviewer: [email or web address] Initial Review Date: 08/03/2019 Generated: 08/09/19 3:35 pm Comments DCP- Discharge Planning Updated by [email or web address]: Izzy Mercedes on 08/09/19 1:[address] spoke with Zully this AM about discharge, all clinicals have been sent and she has submitted for auth. Will await for Auth. DCP- Discharge Planning Updated by [id number]: Izzy Mercedes on 08/07/19 11:[address] spoke with Zully at [facility] about anticipated DC tomorrow, will send clinical updates to her. He will need a midline/picc for IV abx at [place]. CM to follow and assist with DC planning DCP- Discharge Planning Updated by [email or web address]: Edel Steele on 08/03/19 3:[address] Patient Name: OLAMIDE SOTO Admission Status: Elective Accout number: [id number] Admission Date: 07-31-2019 : 1985 Admission Diagnosis:SEPSIS, UNSPECIFIED ORGANISM Attending: LENNY JO Current LOS: 3 Anticipated DC Date: Planned Disposition: Home Hlth Svc w Plan Readm Primary Insurance: [employer] ADV Discharge Planning Comments: CM MET WITH PATIENT TO DISCUSS DC PLANNING/NEEDS AFTER OBTAINING VERBAL CONSENT. PATIENT PLANS TO DC TO HOME WITH MOM AND RESUME HH WITH A COMPANY CALLED [facility]. MAY NEED TO TALK TO HIS MOM TO VERIFY THE NAME OF THE HH COMPANY. CM WILL FOLLOW AND ASSIST NEEDED. Receiving Teller: Edel Steele DCPIA - Discharge Planning Initial Assessment Updated by [email or web address]: Edel Steele on 08/03/19 4:52 pm * Is the patient Alert and Oriented? Yes * Preadmission Environment Home with Family * ADLs Independent * Equipment None * List name and contact numbers for known caregivers / representatives who currently or will assist patient after discharge: FERMÍN ANTON, * Community resources currently utilized Home Health * Please name any agencies selected above. [facility] [place] * Additional services required to return to the preadmission environment? No * Can the patient safely return to the preadmission environment? Yes * Has this patient been hospitalized within the prior 30 days at any hospital? No Last DP export: 08/09/19 10:59 Patient Name: OLAMIDE SOTO Page [id number] at 1435 All edits/amendments must be made on the electronic document DICTATION DATE: 08/09/191434 CORRECTION WARDEN: KEKE 08/09/191434 RPT#: [id number] DC DATE: STATUS: ADM IN [facility] [address] [place] [address] END OF REPORT
[2019-08-09 16:53] VITALS: BP 123/72
--- NOTE | 2019-08-09 20:06 | NUR ---
0T NOTE: PT COMPLETED BED MOB TASKS WITH SBA. PT COMPLETED FACE WASH WITH SET UP. THANK YOU, EDISON DAVIS
[2019-08-09 21:16] VITALS: BP 111/60
[2019-08-10 01:13] VITALS: BP 124/64
[2019-08-10 04:37] VITALS: BP 127/76
--- NOTE | 2019-08-10 08:50 | NUR ---
RESTING IN BED, NO DISTRESS NOTED, DR JO HERE TO MAKE ROUNDS, PT PULLED PACKING IN THE HS, REPLACED AND SANTOS WELL
[2019-08-10 08:55] VITALS: BP 122/76
[2019-08-10 12:04] VITALS: BP 120/72
[2019-08-10 16:08] VITALS: BP 124/83
[2019-08-10 19:30] VITALS: BP 118/78
[2019-08-11 00:30] VITALS: BP 123/78
--- NOTE | 2019-08-11 03:26 | NUR ---
I have reviewed this patient and I concur with the Shift Assessment completed by the Licensed Practical Nurse today this shift.
[2019-08-11 04:30] VITALS: BP 118/72
[2019-08-11 06:08] LABS: BASOPHILS 0.3 % (0-2); EOSINOPHILS 2.1 % (0-7); HEMATOCRIT 28.3 % (42.0-54.0); HEMOGLOBIN 8.8 g/dL (13.5-17.5); IMMATURE GRANULOCYTES 0.2 % (0-5); LYMPHOCYTES 9.9 % (15-50); MCHC 31.1 g/dL (31.0-37.0); MCV 86.8 fL (80.0-100.0); MEAN PLATELET VOLUME 9.1 fL (7.4-10.4); NEUTROPHILS 78.5 % (40-80); PLATELET COUNT 390 10x3/uL (130-400); RBC 3.26 10x6/uL (4.20-6.10); RDW 16.1 % (11.5-14.5); WBC 6.6 10x3/uL (4.8-10.8)
[2019-08-11 07:00] LABS: CALC OSMOLALITY 281 mosm/kg (275-300); CALCIUM 9.4 mg/dL (8.5-10.1); CARBON DIOXIDE 28.1 mmol/L (21.0-32.0); CHLORIDE - SERUM 104 mmol/L (98-107); CREATININE - SERUM 0.9 mg/dL (0.6-1.3); GLUCOSE 95 mg/dL (74-106); POTASSIUM - SERUM 3.1 mmol/L (3.5-5.1); SODIUM 142 mmol/L (136-145); UREA NITROGEN 9 mg/dL (7-18); eGFR NON AFRICAN AMERICAN > 90 mL/min (90-120)
[2019-08-11 07:59] VITALS: BP 114/76
--- NOTE | 2019-08-11 10:47 | NUR ---
RESTING IN BED, NO DISTRESS NOTED, PT REMOVING PACKING THRU THE NIGHTS, WILL APPLY MESH PANTIES PER DR FISCHER
[2019-08-11 12:07] VITALS: BP 109/58
[2019-08-11 16:17] VITALS: BP 120/67
[2019-08-11 20:01] VITALS: BP 119/68
--- NOTE | 2019-08-11 20:45 | NUR ---
WATCHING TV WITHOUT COMPLAITNS VOICED. RESP UNALBORED. NO DISTRESS NOTED. DRESSING TO LEFT BACK INTACT WITHOUT DRAINAGE NOTED. COLOSTOMY NOTED TO LEFT ABD WITH STOMA PINK. CL IN REACH.
[2019-08-12 00:30] VITALS: BP 120/68
--- NOTE | 2019-08-12 02:36 | NUR ---
I have reviewed this patient and I concur with the Shift Assessment completed by the Licensed Practical Nurse today this shift.
[2019-08-12 05:00] VITALS: BP 125/74
--- NOTE | 2019-08-12 07:33 | NUR ---
PT RESTING IN BED WITH EYES CLOSED, EASILY AROUSED TO SPEECH. MIDLINE LOCATED TO RIGHT UPPER ARM. COLOSTOMY LOCATED TO LLQ. NO S/S OF DISTRESS AT THIS TIME, DENIES NEEDS, WILL CONT TO MONITOR.
[2019-08-12 08:33] VITALS: BP 125/78
--- NOTE | 2019-08-12 10:22 | NUR ---
DRESSING CHANGED TO RECTUM WITH KERLEX AND DAIKINS, COVERED WITH ABD PAD.
[2019-08-12] MEDS ORDERED: VANCOMYCIN 1 GM/1 G1 IV (12:25)
[2019-08-12] MEDS ORDERED: MERREM 1 GM/NS 11 G1 IV (12:26)
[2019-08-12 13:34] VITALS: BP 115/72
--- NOTE | 2019-08-12 14:54 | MORECARE ---
CASE MANAGEMENT DISCHARGE SUMMARY PATIENT: OLAMIDE SOTO [facility] UNIT: [id number] ADM DATE: 07/31/19 AGE: 33 : 87 SEX: M ROOM/BED: D.2204 AUTHOR: JEAN,DOC PHYSICIAN: REFERRING PHYSICIAN: LENNY JO MD DATE OF SERVICE: 08/12/19 Discharge Plan Patient Name: OLAMIDE SOTO Facility: [facility]:[place] : 1985 Planned Disposition: Detention Facility Anticipated Discharge Date: Discharge Date: Expected LOS: Initial Reviewer: [id number] Initial Review Date: 08/03/2019 Generated: 08/12/19 3:54 pm Comments DCP- Discharge Planning Updated by [id number]: Izzy Mercedes on 08/12/19 1:[address] PATIENT DISCHARGING TO [facility] TO A SKILLED BED TODAY. IMM SERVED AND EXPLAINED TO PATIENT, I CALLED HIS MOTHER TO LET HER KNOW. SHE IS AWARE AND AGREES WITH DC PLAN DCP- Discharge Planning Updated by [email or web address]: Izzy Mercedes on 08/09/19 1:[address] spoke with Zully this AM about discharge, all clinicals have been sent and she has submitted for auth. Will await for Auth. DCP- Discharge Planning Updated by [id number]: Izzy Mercedes on 08/07/19 11:[address] spoke with Zully at [place] about anticipated DC tomorrow, will send clinical updates to her. He will need a midline/picc for IV abx at [place]. CM to follow and assist with DC planning DCP- Discharge Planning Updated by [email or web address]: Edel Steele on 08/03/19 3:[address] Patient Name: OLAMIDE SOTO Admission Status: Elective Accout number: [id number] Admission Date: 07-31-2019 : 1985 Admission Diagnosis:SEPSIS, UNSPECIFIED ORGANISM Attending: LENNY JO Current LOS: 3 Anticipated DC Date: Planned Disposition: Home Hlth Svc w Plan Readm Primary Insurance: [employer] ADV Discharge Planning Comments: CM MET WITH PATIENT TO DISCUSS DC PLANNING/NEEDS AFTER OBTAINING VERBAL CONSENT. PATIENT PLANS TO DC TO HOME WITH MOM AND RESUME HH WITH A COMPANY CALLED [facility]. MAY NEED TO TALK TO HIS MOM TO VERIFY THE NAME OF THE COMPANY. CM WILL FOLLOW AND ASSIST NEEDED. Production Technician: Edel Steele DCPIA - Discharge Planning Initial Assessment Updated by [id number]: Edel Steele on 08/03/19 4:52 pm * Is the patient Alert and Oriented? Yes * Preadmission Environment Home with Family * ADLs Independent * Equipment None * List name and contact numbers for known caregivers / representatives who currently or will assist patient after discharge: FERMÍN ANTON, * Community resources currently utilized Home Health * Please name any agencies selected above. [facility] [place] * Additional services required to return to the preadmission environment? No * Can the patient safely return to the preadmission environment? Yes * Has this patient been hospitalized within the prior 30 days at any hospital? No Coverage Notice Reviewer: [email or web address] Deidra Mercedes Notice Issued Date-Time: 08/12/2019 14:40 Notice Type: IM Discharge Notice Notice Delivered To: Patient Relationship to Patient: Payroll And Benefits Assistant Name: Delivery Method: HAND - Hand Delivered Sharla Days: Prior Verbal Notification: Recipient Understood Notice: Yes Recipient Signature: Yes Med Rec Note Co-signed by Attending: Coverage Notice Comment: Last DP export: 08/09/19 1:35 Patient Name: OLAMIDE SOTO Page 60096 at 1454 All edits/amendments must be made on the electronic document DICTATION DATE: 08/12/191453 SCRUBBING MACHINE OPERATOR: KEKE 08/12/196 RPT#: [id number] MO DATE: STATUS: ADM IN [facility] [address] [place] [address] END OF REPORT
--- NOTE | 2019-08-12 16:22 | NUR ---
[facility] STA[facility] STAFF.
--- NOTE | 2019-08-13 16:27 | MORECARE ---
CASE MANAGEMENT DISCHARGE SUMMARY PATIENT: OLAMIDE SOTO [facility] UNIT: [id number] ADM DATE: 07/31/19 AGE: 33 : 87 SEX: M ROOM/BED: D.2204 AUTHOR: AGUSTIN PENA PHYSICIAN: REFERRING PHYSICIAN: LENNY JO MD DATE OF SERVICE: 08/13/19 Discharge Plan Patient Name: OLAMIDE SOTO [facility] [facility] 1985 Planned Disposition: Retirement Facility Anticipated Discharge Date: Discharge Date: 08/12/2019 Expected LOS: Initial Reviewer: [email or web address] Initial Review Date: 08/03/2019 Generated: 08/13/19 5:26 pm Comments DCP- Discharge Planning Updated by [email or web address]: Izzy Mercedes on 08/12/19 1:[address] PATIENT DISCHARGING TO [facility] TO A SKILLED BED TODAY. IMM SERVED AND EXPLAINED TO PATIENT, I CALLED HIS MOTHER TO LET HER KNOW. SHE IS AWARE AND AGREES WITH DC PLAN DCP- Discharge Planning Updated by [id number]: Izzy Mercedes on 08/09/19 1:[address] spoke with Zully this AM about discharge, all clinicals have been sent and she has submitted for auth. Will await for Auth. DCP- Discharge Planning Updated by [id number]: Izzy Mercedes on 08/07/19 11:[address] spoke with Zully at [facility] about anticipated DC tomorrow, will send clinical updates to her. He will need a midline/picc for IV abx at [facility]. CM to follow and assist with DC planning DCP- Discharge Planning Updated by [email or web address]: Edel Steele on 08/03/19 3:[address] Patient Name: OLAMIDE SOTO Admission Status: Elective Accout number: [id number] Admission Date: 07-31-2019 : 1985 Admission Diagnosis:SEPSIS, UNSPECIFIED ORGANISM Attending: LENNY JO Current LOS: 3 Anticipated DC Date: Planned Disposition: Home Hlth Svc w Plan Readm Primary Insurance: [employer] ADV Discharge Planning Comments: CM MET WITH PATIENT TO DISCUSS DC PLANNING/NEEDS AFTER OBTAINING VERBAL CONSENT. PATIENT PLANS TO DC TO HOME WITH MOM AND RESUME HH WITH A COMPANY CALLED [facility]. MAY NEED TO TALK TO HIS MOM TO VERIFY THE NAME OF THE HH COMPANY. CM WILL FOLLOW AND ASSIST NEEDED. Mobile Security Specialist: Edelirena Steele DCPIA - Discharge Planning Initial Assessment Updated by [id number]: Edel Ivette on 08/03/19 4:52 pm * Is the patient Alert and Oriented? Yes * Preadmission Environment Home with Family * ADLs Independent * Equipment None * List name and contact numbers for known caregivers / representatives who currently or will assist patient after discharge: FERMÍN ANTON, * Community resources currently utilized Home Health * Please name any agencies selected above. [facility] [place] * Additional services required to return to the preadmission environment? No * Can the patient safely return to the preadmission environment? Yes * Has this patient been hospitalized within the prior 30 days at any hospital? No Coverage Notice Reviewer: [email or web address] Deidra Mercedes Notice Issued Date-Time: 08/12/2019 14:40 Notice Type: IM Discharge Notice Notice Delivered To: Patient Relationship to Patient: Senior Payroll Administrator Name: Delivery Method: HAND - Hand Delivered Sharla Days: Prior Verbal Notification: Recipient Understood Notice: Yes Recipient Signature: Yes Med Rec Note Co-signed by Attending: Coverage Notice Comment: Last DP export: 08/12/19 1:54 Patient Name: OLAMIDE SOTO Page [phone] at 1627 All edits/amendments must be made on the electronic document DICTATION DATE: 08/13/191625 VEGETABLE SPECKER: KEKE 08/13/191625 RPT#: [id number] DC DATE:08/12/19 STATUS: DIS IN [facility] [address] [place] [address] END OF REPORT
== END 2019-08-12 16:23 | DRG 862 ==
LOC: D.MS 13:32 → D.ICU 17:22 → D.MS 08-02 12:17
PROVIDERS: ADMIT Surgery; ATTEND Surgery
PROC: 3E10X8Z Irrigation of Skin and Mucous Membranes using Irrigating Substance (ICD-10-PCS; principal; 2019-08-08 09:45)
PROC: 05HB33Z Insertion of Infusion Device into Right Basilic Vein, Percutaneous Approach (ICD-10-PCS; 2019-08-09)
PROC: 05HC33Z Insertion of Infusion Device into Left Basilic Vein, Percutaneous Approach (ICD-10-PCS; 2019-08-12)
DX: T81.44XA Sepsis following a procedure, initial encounter (principal); A41.9 Sepsis, unspecified organism; L02.215 Cutaneous abscess of perineum; C20 Malignant neoplasm of rectum; N17.9 Acute kidney failure, unspecified; F84.0 Autistic disorder; D64.9 Anemia, unspecified; C80.1 Malignant (primary) neoplasm, unspecified